=== PATIENT | female | born 2000 | race Two or more races ===

== ENCOUNTER 2021-08-27 11:12 | Outpatient (REF) | payer OTHER, SELFPAY ==
[2021-08-29 20:52] LABS: TS Negative Control Passed; TS Panel A 0; TS Panel B 0; TS Positive Control Passed; TSpotTB Negative (Negative)
== END 2021-08-27 11:13 | disposition home or self-care (01) ==
LOC: HO.LAB 11:12
PROVIDERS: Visit Provider Physician Assistant
DX: Z11.1 Encounter for screening for respiratory tuberculosis (principal)
CPT/HCPCS: 36415; 86481

== ENCOUNTER 2021-11-28 02:07 | Emergency (ER) | payer OTHER, MEDICAID, SELFPAY ==
[2021-11-28 02:19] VITALS: BP 136/85; PULSE 94; RESP 14; TEMP 37.2; O2SAT 99; BMI 21.9
[2021-11-28 04:25] VITALS: BP 104/63; PULSE 67; RESP 14; O2SAT 97
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
[2021-11-28] MEDS: Ibuprofen 600 MG TABLET PO (04:47)
== END 2021-11-28 04:50 | disposition home or self-care (01) ==
PROVIDERS: Emergency Provider Internal Medicine
DX: S00.93XA Contusion of unspecified part of head, initial encounter (principal); V43.52XA Car driver injured in collision with other type car in traffic accident, initial encounter; Y93.9 Activity, unspecified; Y92.9 Unspecified place or not applicable; Y99.9 Unspecified external cause status
CPT/HCPCS: 99283

== ENCOUNTER 2022-02-11 11:36 | Outpatient (REF) | payer OTHER, SELFPAY ==
--- NOTE | ~2022-02-11 | XR_ITS ---
EXAMINATION: XR CHEST CLINICAL INFORMATION: Shortness of breath COMPARISON: None TECHNIQUE: 2 views of the chest were obtained. FINDINGS: Mild pectus deformity. Cardiac and mediastinal contours are otherwise normal. The lungs are clear. There is no pleural effusion or pneumothorax. Bony structures are otherwise unremarkable. XR/XR chest 2V IMPRESSION: No evidence for acute disease in the chest.
[2022-02-11 11:51] LABS: MANUAL DIFF FLAG NO
[2022-02-11 12:13] LABS: Basophils Absolute Auto 0.1 X10*3/uL (0.0-0.2); Basophils Percent Auto 0.9 % (0-2); Eosinophils Absolute Auto 0.1 X10*3/uL (0.0-0.4); Eosinophils Percent Auto 1.5 % (0-4); Hematocrit 40.1 % (37.0-47.0); Hemoglobin 12.7 g/dl (12.0-16.0); Imm Gran Abs Auto 0.01 X10*3/uL (0.00-0.03); Imm Gran Pct Auto 0.2 % (0.0-0.4); Lymphocytes Absolute Auto 1.4 X10*3/uL (1.2-4.9); Mean Corpuscular HGB Conc 31.7 g/dl (31.0-35.0); Mean Corpuscular Hemoglobin 24.8 pg (27.0-33.0); Mean Corpuscular Volume 78.2 fL (80.0-98.0); Mean Platelet Volume 11.5 fL (9.4-12.3); Monocytes Absolute Auto 0.5 X10*3/uL (0.1-1.2); Monocytes Percent Auto 8.5 % (2-11); Neutrophils Absolute Auto 3.5 x10*3/uL (2.0-8.3); Neutrophils Percent Auto 63.9 % (45-73); Platelet Count 313 X10*3/uL (160-400); Red Blood Count 5.13 X10*6/uL (4.20-5.50); Red Cell Distribution Width 14.3 % (11.0-16.0); White Blood Count 5.4 X10*3/uL (4.8-10.8)
[2022-02-11 13:15] LABS: Alanine Aminotransferase 9 U/L (0-31); Albumin Level 4.5 g/dL (3.5-5.0); Alkaline Phosphatase 89 U/L (39-117); Anion Gap 11 (12-20); Aspartate Amino Transferase 15 U/L (5-31); Bilirubin Total 0.4 mg/dL (0.0-1.0); Blood Urea Nitrogen 8 mg/dL (9-16); Calcium 9.8 mg/dL (8.4-10.2); Carbon Dioxide 27 mmol/L (22-29); Chloride 103 mmol/L (96-108); Estimated Glomerular Filt Rate > 60; Glucose Random 98 mg/dL (60-115); Potassium 4.5 mmol/L (3.3-5.1); Sodium 136 mmol/L (135-145); TSH reflex Free T4 1.19 uIU/mL (0.32-4.0); Total Protein 7.4 g/dL (6.5-8.0)
== END 2022-02-11 11:37 | disposition home or self-care (01) ==
LOC: HO.LAB 11:36
PROVIDERS: PCP Physician Assistant; Visit Provider Nurse Practitioner Family
DX: Z13.29 Encounter for screening for other suspected endocrine disorder (principal); Z13.0 Encounter for screening for diseases of the blood and blood-forming organs and certain disorders involving the immune mechanism; R06.02 Shortness of breath
CPT/HCPCS: 36415; 71046; 80053; 84443; 85025

== ENCOUNTER 2022-02-25 11:20 | Emergency (ER) | payer OTHER, SELFPAY ==
--- NOTE | 2022-02-25 11:32 | ED_ITS ---
HPI - Abdominal Pain General Chief Complaint: Abdominal Pain <Mona Arthur NP - Last Filed: 02/25/22 11:35> Stated Complaint: Upper abd pain <Mona Arthur NP - Last Filed: 02/25/22 11:35> Time Seen by Provider: 02/25/22 13:29 <Mona Arthur NP - Last Filed: 02/25/22 11:35> Source: patient <MANASA Walden - Last Filed: 02/25/22 13:58> Mode of arrival: ambulatory <MANASA Walden - Last Filed: 02/25/22 13:58> Limitations: no limitations <MANASA Walden Last Filed: 02/25/22 13:58> History of Present Illness HPI narrative: Patient is a 21 year old assigned female at with no reported medical history presenting to the emergency department today with epigastric pain. Patient states that over the last week she has had epigatsric pain that is worse when lying down. Patient denies any dizziness, lightheadedness, nausea, vomiting, fever, chills, blurry vision, double vision, loss of vision, chest pain, difficulty breathing, shortness of breath, back pain, night sweats, pain with urination, increased urinary frequency, increased urinary urgency, blood in her urine or stool, syncope or a near syncopal episode, recent trauma or falls, bowel incontinence, bladder incontinence, bowel retention, bladder retention, or any other complaints at this time. <MANASA Walden - Last Filed: 02/25/22 13:58> MD elicited complaint: abdominal pain <MANASA Walden - Last Filed: 02/25/22 13:58> Pertinent past history: none <MANASA Walden Last Filed: 02/25/22 13:58> Onset (ago): week(s) (1) <MANASA Walden - Last Filed: 02/25/22 13:58> Pain Consistency: intermittent <MANASA Walden Last Filed: 02/25/22 13:58> Location: epigastric <MANASA Walden Last Filed: 02/25/22 13:58> Severity: mild <MANASA Walden - Last Filed: 02/25/22 13:58> Pain scale (0-10): 3 <MANASA Walden - Last Filed: 02/25/22 13:58> Quality: burning <MANASA Walden - Last Filed: 02/25/22 13:58> Radiation: none <MANASA Walden - Last Filed: 02/25/22 13:58> Migration to: no migration <MANASA Walden - Last Filed: 02/25/22 13:58> Exacerbating factors: other (lying down) <MANASA Walden - Last Filed: 02/25/22 13:58> Relieving factors: nothing <MANASA Walden - Last Filed: 02/25/22 13:58> Associated symptoms: denies other symptoms <MANASA Walden - Last Filed: 02/25/22 13:58> Related Data Home Medications: Previous Rx's Medication Instructions Recorded albuterol sulfate 90 mcg/actuation 2 puff inhalation Q4-6H PRN 02/11/22 aerosol inhaler shortness of breath or wheezing #6.7 grams omeprazole 40 mg capsule,delayed 40 mg PO DAILY #30 caps 02/25/22 release <Mona Arthur NP - Last Filed: 02/25/22 11:35> Allergies/Adverse Reactions: Allergies Allergy/AdvReac Type Severity Reaction Status Date / Time copper Allergy Unknown Rash Verified 02/25/22 11:32 adhesive tape Allergy Rash Verified 02/25/22 11:32 <Mona Arthur NP - Last Filed: 02/25/22 11:35> Review of Systems Constitutional: Reports no additional constitutional complaints, Denies chills, Denies fever(s) and Denies night sweats <MANASA Walden - Last Filed: 02/25/22 13:58> Eyes: Reports no additional eye complaints, Denies blurry vision, Denies change in vision, Denies diplopia, Denies eye discharge, Denies loss of vision and Denies eye pain <MANASA Walden - Last Filed: 02/25/22 13:58> Denies dizziness <MANASA Walden - Last Filed: 02/25/22 13:58> Cardiovascular: Reports no additional cardiovascular complaints, Denies chest pain, Denies lightheadedness, Denies Loss of Consciousness and Denies dyspnea <MANASA Walden - Last Filed: 02/25/22 13:58> Respiratory: Reports no additional respiratory complaints and Denies dyspnea <MANASA Walden - Last Filed: 02/25/22 13:58> Gastrointestinal: Reports no additional gastrointestinal complaints, Reports abdominal pain (epigastric pain), Denies melena, Denies hematochezia, Denies change in bowel habits and Denies change in stool character <MANASA Walden - Last Filed: 02/25/22 13:58> Genitourinary: Denies hematuria, Denies urinary frequency, Denies dysuria, Denies urinary incontinence, Denies urinary hesitancy and Denies urinary urgency <MANASA Walden - Last Filed: 02/25/22 13:58> Musculoskeletal: Reports no additional musculoskeletal complaints, Denies numbness and Denies tingling <MANASA Walden - Last Filed: 02/25/22 13:58> Denies dizziness, Denies loss of vision, Denies numbness and Denies tingling <MANASA Walden - Last Filed: 02/25/22 13:58> Psychiatric: Reports no additional psychiatric complaints <MANASA Walden - Last Filed: 02/25/22 13:58> Endocrine: Reports no additional endocrine complaints <MANASA Walden - Last Filed: 02/25/22 13:58> Hematologic/Lymphatic: Reports no additional hematologic/lymphatic complaints <MANASA Walden - Last Filed: 02/25/22 13:58> Allergic/Immunologic: Reports no additional allergic/immunologic complaints <MANASA Walden - Last Filed: 02/25/22 13:58> PMFSH Past Medical History Attestation statement: The following information was validated with the patient. <MANASA Walden - Last Filed: 02/25/22 13:58> Source: old records reviewed <MANASA Walden - Last Filed: 02/25/22 13:58> Medical History: Medical History Collapse of right lung SOB (shortness of breath) <Mona Arthur NP - Last Filed: 02/25/22 11:35> Surgical History: Surgical History History of appendectomy History of surgery <Mona Arthur NP - Last Filed: 02/25/22 11:35> Family History Family History: Family History Father No problems noted. Mother No problems noted. Brother No problems noted. <Mona Arthur NP - Last Filed: 02/25/22 11:35> Social History Social History: Social History Housing: Apartment Alcohol intake: current Alcohol intake frequency: holidays/special occasions only Patient Tobacco Use Status: Never used Tobacco e-Cigarette/Vaping Use: Never Used Second Hand Smoke Exposure: No Advance Directives: No Advance Directives Information Provided: No service: No Current occupational status: employed Current occupational exposures/hazards: No Cognitive needs: No Hearing needs: No Vision needs: No <Mona Arthur NP - Last Filed: 02/25/22 11:35> Physical Exam ED Vital Signs: Vital Signs - 24 hr 02/25/22 11:33 Temperature 98.2 F Pulse Rate 100 Respiratory Rate 18 Blood Pressure 108/65 Pulse Oximetry 99 Oxygen Delivery Method Room Air BMI result Body Mass Index 21.9 <Mona Arthur NP - Last Filed: 02/25/22 11:35> Vital Signs - 24 hr 02/25/22 11:33 Temperature 98.2 F Pulse Rate 100 Respiratory Rate 18 Blood Pressure 108/65 Pulse Oximetry 99 Oxygen Delivery Method Room Air BMI result Body Mass Index 21.9 <MANASA Walden - Last Filed: 02/25/22 13:58> Const General: cooperative, no acute distress, alert and awake <MANASA Walden - Last Filed: 02/25/22 13:58> Nutritional Appearance: well nourished <MANASA Walden - Last Filed: 02/25/22 13:58> Orientation/consciousness: patient oriented x3 <MANASA Walden - Last Filed: 02/25/22 13:58> Limitations: no limitations <Rand Jordan [place] - Last Filed: 02/25/22 13:58> HENMT Head: Yes normal to inspection and Yes atraumatic <Rand Jordan [place] - Last Filed: 02/25/22 13:58> Ears: hearing grossly normal bilaterally and external ears normal <Rand Jordan [place] - Last Filed: 02/25/22 13:58> General nose exam: Normal external nose present, no nasal discharge noted and no epistaxis <Rand Jordan [place] - Last Filed: 02/25/22 13:58> Face and sinus: Yes normal facial exam, No abrasion and No laceration <Rand Jordan [place] - Last Filed: 02/25/22 13:58> Mouth: Normal oral and palatal mucosa present, no drooling and no muffled voice <Rand Jordan [place] - Last Filed: 02/25/22 13:58> Eyes General: appearance normal, both eyes and all related structures <Rand Jordan [place] - Last Filed: 02/25/22 13:58> Periorbital: periorbital findings normal <Rand Jordan [place] - Last Filed: 02/25/22 13:58> Eyelids: Yes eyelids normal <Rand Jordan [place] - Last Filed: 02/25/22 13:58> Conjunctivae: conjunctivae normal <Rand Jordan [place] - Last Filed: 02/25/22 13:58> Pupils: Equal, round and reactive pupils present <Rand Jordan [place] - Last Filed: 02/25/22 13:58> EOM: EOMs intact bilaterally <Rand Jordan [place] - Last Filed: 02/25/22 13:58> Neck Neck: Yes normal visual inspection, Yes full ROM and Yes no lymphadenopathy <Rand Jordan [place] - Last Filed: 02/25/22 13:58> Chest Chest palpation & inspection: normal inspection of the chest <Rand Jordan IL - Last Filed: 03/07 13:58> Resp Effort & Inspection: normal respiratory effort and able to speak in complete sentences <Debra Hurleyannalee [place] - Last Filed: 02/25/22 13:58> Auscultation: clear to auscultation bilaterally <Rand Jordan PA - Last Filed: 02/25/22 13:58> Cardio Rate: regular rate <Rand Jordan PA - Last Filed: 02/25/22 13:58> Rhythm: regular rhythm <Rand Jordan PA - Last Filed: 02/25/22 13:58> GI Inspection: Yes normal to inspection <Rand Jordan PA - Last Filed: 02/25/22 13:58> Palpation (GI): Soft to palpation, not firm, nontender, no guarding and not rigid <Rand Jordan PA - Last Filed: 02/25/22 13:58> Neuro General: patient oriented x3 and moves all extremities <Rand Jordan PA - Last Filed: 02/25/22 13:58> Cranial nerves: Yes Equal, round and reactive pupils present <Rand Jordan PA - Last Filed: 02/25/22 13:58> Cognition (Neuro): normal cognition <Rand Jordan PA - Last Filed: 02/25/22 13:58> Motor exam (neuro): 5/5 motor strength present throughout <Rand Jordan PA - Last Filed: 02/25/22 13:58> Sensory Exam: Normal double simultaneous stimulation for sensation <Rand Jordan PA - Last Filed: 02/25/22 13:58> Coordination: [id number] test normal <Rand Jordan PA - Last Filed: 02/25/22 13:58> Extrem General: Yes normal to inspection, Yes full ROM and Yes capillary refill normal <Rand Jordan PA - Last Filed: 02/25/22 13:58> Psych Appearance: grossly normal <Rand Jordan PA - Last Filed: 02/25/22 13:58> Mental Status: mental status grossly normal <Rand Jordan PA - Last Filed: 02/25/22 13:58> Affect: normal affect <Rand Jordan PA - Last Filed: 02/25/22 13:58> Attitude: cooperative <Rand Jordan PA - Last Filed: 02/25/22 13:58> Thought process: Normal thought process present <Rand Jordan PA - Last Filed: 13:58> Thought content: Normal thought content present <MANASA Walden - Last Filed: 02/25/22 13:58> Insight: Good insight present (Psych) <MANASA Walden - Last Filed: 02/25/22 13:58> Course Course Course Narrative: This is a rapid medical exam. Deferred additional HPI, ROS to primary provider. 21 yo female with history of asthma, hypothyroidism here with upper/epigastric abdominal pain x 1 week worsened with laying flat. No nausea, vomiting, diarrhea, urinary symptoms, fevers, chills. Will check labs, UA. VSS. <Mona Arthur NP - Last Filed: 02/25/22 11:35> Medical Decision Making Medical Decision Making [facility] Narrative: Patient is a 21 year old assigned female at with no reported medical history presenting to the emergency department today with epigastric pain. Patient's physical exam was unremarkable. Patient's blood work was unremarkable. Patient's urine showed no acute process. I explained my physical exam findings as well as all test results to the patient. I answered all questions asked by the patient. Patient received PO Omeprazole and Maalox which she stated helped her symptoms significantly. I stressed the importance of the patient taking her medication as prescribed. I stressed the importance of the patient following up with her primary care provider. I stressed the importance of the patient returning to the emergency department immediately if her symptoms were to worsen or if she were to develop any dizziness, shortness of breath, difficulty breathing, chest pain, blurry vision, loss of vision, nausea, vomiting, abdominal pain, fever, chills, back pain, or any other complaints. Patient verbalized agreement and understanding with this treatment plan and discharge. <MANASA Walden - Last Filed: 02/25/22 13:58> Differential Diagnosis Differential Diagnoses: The differential diagnosis associated with the presentation includes <MANASA Walden - Last Filed: 02/25/22 13:58> GERD <MANASA Walden - Last Filed: 02/25/22 13:58> Lab Data [facility] Lab Attestation statement: I reviewed the patient's lab results. <MANASA Walden - Last Filed: 02/25/22 13:58> Result Diagrams: : 02/25/22 11:40 02/25/22 11:40 <Mona Arthur, [employer] OPERATOR - Last Filed: 02/25/22 11:35> Labs: Lab Results 02/25/22 02/25/22 02/25/22 Range/Units 11:40 11:40 13:32 WBC 6.4 (4.8-10.8) X10*3/uL RBC 4.98 (4.20-5.50) X10*6/uL Hgb 12.6 (12.0-16.0) g/dl Hct 38.9 (37.0-47.0) % MCV 78.1 L (80.0-98.0) fL MCH 25.3 L (27.0-33.0) pg MCHC 32.4 (31.0-35.0) g/dl RDW 14.3 (11.0-16.0) % Plt Count 282 (160-400) X10*3/uL MPV 11.6 (9.4-12.3) fL Immature Gran % (Auto) 0.3 (0.0-0.4) % Neut % (Auto) 66.5 (45-73) % Lymph % (Auto) 21.6 (20-40) % [place] % (Auto) 9.9 (2-11) % Eos % (Auto) 1.1 (0-4) % Baso % (Auto) 0.6 (0-2) % Lymph # (Auto) 1.4 (1.2-4.9) X10*3/uL [place] # (Auto) 0.6 (0.1-1.2) X10*3/uL Eos # (Auto) 0.1 (0.0-0.4) X10*3/uL Baso # (Auto) 0.0 (0.0-0.2) X10*3/uL Abs Immat Gran (auto) 0.02 (0.00-0.03) X10*3/uL Absolute Neuts (auto) 4.2 (2.0-8.3) x10*3/uL Absolute Nucleated RBC 0.000 (0.0-0.012) X10*3/uL Nucleated RBC % (auto) 0.0 (0.0-0.2) /100WBC Sodium 140 (135-145) mmol/L Potassium 4.3 (3.3-5.1) mmol/L Chloride 106 (96-108) mmol/L Carbon Dioxide 28 (22-29) mmol/L Anion Gap 10 L (12-20) BUN 11 (9-16) mg/dL Creatinine 0.74 (0.5-1.4) mg/dL Estim Creat Clear Calc 94.3 Estimated GFR > 60 Random Glucose 84 (60-115) mg/dL Calcium 9.7 (8.4-10.2) mg/dL Total Bilirubin 0.4 (0.0-1.0) mg/dL Direct Bilirubin < 0.2 (0.0-0.5) mg/dL AST 15 (5-31) U/L ALT 8 (0-31) U/L Alkaline Phosphatase 84 (39-117) U/L Total Protein 7.2 (6.5-8.0) g/dL Albumin 4.6 (3.5-5.0) g/dL Lipase 28 (8-78) U/L Urine Color Yellow Urine Appearance Clear Urine pH 6.0 (5.0-9.0) Ur Specific [place] 1.020 (1.005-1.025) Urine Protein Negative (Neg-Trace) mg/dL Urine Glucose (UA) Negative (Negative) mg/dL Urine Ketones Negative (Negative) mg/dL Urine Blood Negative (Negative) Urine Nitrite Negative (Negative) Ur Leukocyte Esterase Negative (Negative) Urine Test (NEGATIVE) 02/25/22 Range/Units 13:32 WBC (4.8-10.8) X10*3/uL RBC (4.20-5.50) X10*6/uL Hgb (12.0-16.0) g/dl Hct (37.0-47.0) % MCV (80.0-98.0) fL MCH (27.0-33.0) pg MCHC (31.0-35.0) g/dl RDW (11.0-16.0) % Plt Count (160-400) X10*3/uL MPV (9.4-12.3) fL Immature Gran % (Auto) (0.0-0.4) % Neut % (Auto) (45-73) % Lymph % (Auto) (20-40) % [place] % (Auto) (2-11) % Eos % (Auto) (0-4) % Baso % (Auto) (0-2) % Lymph # (Auto) (1.2-4.9) X10*3/uL [place] # (Auto) (0.1-1.2) X10*3/uL Eos # (Auto) (0.0-0.4) X10*3/uL Baso # (Auto) (0.0-0.2) X10*3/uL Abs Immat Gran (auto) (0.00-0.03) X10*3/uL Absolute Neuts (auto) (2.0-8.3) x10*3/uL Absolute Nucleated RBC (0.0-0.012) X10*3/uL Nucleated RBC % (auto) (0.0-0.2) /100WBC Sodium (135-145) mmol/L Potassium (3.3-5.1) mmol/L Chloride (96-108) mmol/L Carbon Dioxide (22-29) mmol/L Anion Gap (12-20) BUN (9-16) mg/dL Creatinine (0.5-1.4) mg/dL Estim Creat Clear Calc Estimated GFR Random Glucose (60-115) mg/dL Calcium (8.4-10.2) mg/dL Total Bilirubin (0.0-1.0) mg/dL Direct Bilirubin (0.0-0.5) mg/dL AST (5-31) U/L ALT (0-31) U/L Alkaline Phosphatase (39-117) U/L Total Protein (6.5-8.0) g/dL Albumin (3.5-5.0) g/dL Lipase (8-78) U/L Urine Color Urine Appearance Urine pH (5.0-9.0) Ur Specific [place] (1.005-1.025) Urine Protein (Neg-Trace) mg/dL Urine Glucose (UA) (Negative) mg/dL Urine Ketones (Negative) mg/dL Urine Blood (Negative) Urine Nitrite (Negative) Ur Leukocyte Esterase (Negative) Urine Test NEGATIVE (NEGATIVE) <Mona Arthur NP - Last Filed: 02/25/22 11:35> Lab Results 02/25/22 02/25/2202/25/22 Range/Units 11:40 11:40 13:32 WBC 6.4 (4.8-10.8) X10*3/uL RBC 4.98 (4.20-5.50) X10*6/uL Hgb 12.6 (12.0-16.0) g/dl Hct 38.9 (37.0-47.0) % MCV 78.1 L (80.0-98.0) fL MCH 25.3 L (27.0-33.0) pg MCHC 32.4 (31.0-35.0) g/dl RDW 14.3 (11.0-16.0) % Plt Count 282 (160-400) X10*3/uL MPV 11.6 (9.4-12.3) fL Immature Gran % (Auto) 0.3 (0.0-0.4) % Neut % (Auto) 66.5 (45-73) % Lymph % (Auto) 21.6 (20-40) % [place] % (Auto) 9.9 (2-11) % Eos % (Auto) 1.1 (0-4) % Baso % (Auto) 0.6 (0-2) % Lymph # (Auto) 1.4 (1.2-4.9) X10*3/uL [place] # (Auto) 0.6 (0.1-1.2) X10*3/uL Eos # (Auto) 0.1 (0.0-0.4) X10*3/uL Baso # (Auto) 0.0 (0.0-0.2) X10*3/uL Abs Immat Gran (auto) 0.02 (0.00-0.03) X10*3/uL Absolute Neuts (auto) 4.2 (2.0-8.3) x10*3/uL Absolute Nucleated RBC 0.000 (0.0-0.012) X10*3/uL Nucleated RBC % (auto) 0.0 (0.0-0.2) /100WBC Sodium 140 (135-145) mmol/L Potassium 4.3 (3.3-5.1) mmol/L Chloride 106 (96-108) mmol/L Carbon Dioxide 28 (22-29) mmol/L Anion Gap 10 L (12-20) BUN 11 (9-16) mg/dL Creatinine 0.74 (0.5-1.4) mg/dL Estim Creat Clear Calc 94.3 Estimated GFR > 60 Random Glucose 84 (60-115) mg/dL Calcium 9.7 (8.4-10.2) mg/dL Total Bilirubin 0.4 (0.0-1.0) mg/dL Direct Bilirubin < 0.2 (0.0-0.5) mg/dL AST 15 (5-31) U/L ALT 8 (0-31) U/L Alkaline Phosphatase 84 (39-117) U/L Total Protein 7.2 (6.5-8.0) g/dL Albumin 4.6 (3.5-5.0) g/dL Lipase 28 (8-78) U/L Urine Color Yellow Urine Appearance Clear Urine pH 6.0 (5.0-9.0) Ur Specific [place] 1.020 (1.005-1.025) Urine Protein Negative (Neg-Trace) mg/dL Urine Glucose (UA) Negative (Negative) mg/dL Urine Ketones Negative (Negative) mg/dL Urine Blood Negative (Negative) Urine Nitrite Negative (Negative) Ur Leukocyte Esterase Negative (Negative) Urine Test (NEGATIVE) 02/25/22 Range/Units 13:32 WBC (4.8-10.8) X10*3/uL RBC (4.20-5.50) X10*6/uL Hgb (12.0-16.0) g/dl Hct (37.0-47.0) % MCV (80.0-98.0) fL MCH (27.0-33.0) pg MCHC (31.0-35.0) g/dl RDW (11.0-16.0) % Plt Count (160-400) X10*3/uL MPV (9.4-12.3) fL Immature Gran % (Auto) (0.0-0.4) % Neut % (Auto) (45-73) % Lymph % (Auto) (20-40) % [place] % (Auto) (2-11) % Eos % (Auto) (0-4) % Baso % (Auto) (0-2) % Lymph # (Auto) (1.2-4.9) X10*3/uL [place] # (Auto) (0.1-1.2) X10*3/uL Eos # (Auto) (0.0-0.4) X10*3/uL Baso # (Auto) (0.0-0.2) X10*3/uL Abs Immat Gran (auto) (0.00-0.03) X10*3/uL Absolute Neuts (auto) (2.0-8.3) x10*3/uL Absolute Nucleated RBC (0.0-0.012) X10*3/uL Nucleated RBC % (auto) (0.0-0.2) /100WBC Sodium (135-145) mmol/L Potassium (3.3-5.1) mmol/L Chloride (96-108) mmol/L Carbon Dioxide (22-29) mmol/L Anion Gap (12-20) BUN (9-16) mg/dL Creatinine (0.5-1.4) mg/dL Estim Creat Clear Calc Estimated GFR Random Glucose (60-115) mg/dL Calcium (8.4-10.2) mg/dL Total Bilirubin (0.0-1.0) mg/dL Direct Bilirubin (0.0-0.5) mg/dL AST (5-31) U/L ALT (0-31) U/L Alkaline Phosphatase (39-117) U/L Total Protein (6.5-8.0) g/dL Albumin (3.5-5.0) g/dL Lipase (8-78) U/L Urine Color Urine Appearance Urine pH (5.0-9.0) Ur Specific [place] (1.005-1.025) Urine Protein (Neg-Trace) mg/dL Urine Glucose (UA) (Negative) mg/dL Urine Ketones (Negative) mg/dL Urine Blood (Negative) Urine Nitrite (Negative) Ur Leukocyte Esterase (Negative) Urine Test NEGATIVE (NEGATIVE) <MANASA Walden - Last Filed: 02/25/22 13:58> Discharge Plan Discharge Clinical Impression: Acute epigastric pain <Mona Arhtur NP - Last Filed: 02/25/22 11:35> Patient Disposition: Home, Self-Care <Mona Arthur NP - Last Filed: 02/25/22 11:35> Instructions: Epigastric Pain (ED) <Mnoa Arthur NP - Last Filed: 02/25/22 11:35> Additional Instructions: Follow up with your primary care provider. Return to the emergency dep artment immediately if your symptoms worsen or if you develop any dizziness, shortness of breath, difficulty breathing, chest pain, blurry vision, loss of vision, nausea, vomiting, abdominal pain, fever, chills, back pain, or any other complaints. <Mona Arthur NP - Last Filed: 02/25/22 11:35> Prescriptions: New omeprazole 40 mg capsule,delayed release(DR/EC) 40 mg PO DAILY Qty: 30 0RF No Action albuterol sulfate 90 mcg/actuation HFA aerosol inhaler 2 puff inhalation Q4-6H PRN (Reason: shortness of breath or wheezing) Qty: 6.7 0RF <Mona Arthur NP - Last Filed: 02/25/22 11:35> Referrals: Peterson Nair PA-C [Primary Care Provider] - <Mona Arthur NP - Last Filed: 02/25/22 11:35> Stand Alone Forms: Work/School Release <Mona Arthur NP - Last Filed: 02/25/22 11:35> Print Language: Hungarian <Mona Arthur NP - Last Filed: 02/25/22 11:35>
[2022-02-25 11:33] VITALS: BP 108/65; PULSE 100; RESP 18; TEMP 36.8; O2SAT 99; BMI 21.9
[2022-02-25 11:44] LABS: MANUAL DIFF FLAG NO
[2022-02-25 11:49] LABS: Basophils Percent Auto 0.6 % (0-2); Eosinophils Absolute Auto 0.1 X10*3/uL (0.0-0.4); Eosinophils Percent Auto 1.1 % (0-4); Hematocrit 38.9 % (37.0-47.0); Hemoglobin 12.6 g/dl (12.0-16.0); Imm Gran Abs Auto 0.02 X10*3/uL (0.00-0.03); Imm Gran Pct Auto 0.3 % (0.0-0.4); Lymphocytes Absolute Auto 1.4 X10*3/uL (1.2-4.9); Lymphocytes Percent Auto 21.6 % (20-40); Mean Corpuscular HGB Conc 32.4 g/dl (31.0-35.0); Mean Corpuscular Hemoglobin 25.3 pg (27.0-33.0); Mean Corpuscular Volume 78.1 fL (80.0-98.0); Mean Platelet Volume 11.6 fL (9.4-12.3); Monocytes Absolute Auto 0.6 X10*3/uL (0.1-1.2); Monocytes Percent Auto 9.9 % (2-11); Neutrophils Absolute Auto 4.2 x10*3/uL (2.0-8.3); Neutrophils Percent Auto 66.5 % (45-73); Platelet Count 282 X10*3/uL (160-400); Red Blood Count 4.98 X10*6/uL (4.20-5.50); Red Cell Distribution Width 14.3 % (11.0-16.0); White Blood Count 6.4 X10*3/uL (4.8-10.8)
[2022-02-25 12:11] LABS: Alanine Aminotransferase 8 U/L (0-31); Albumin Level 4.6 g/dL (3.5-5.0); Alkaline Phosphatase 84 U/L (39-117); Anion Gap 10 (12-20); Aspartate Amino Transferase 15 U/L (5-31); Bilirubin Direct < 0.2 mg/dL (0.0-0.5); Bilirubin Total 0.4 mg/dL (0.0-1.0); Blood Urea Nitrogen 11 mg/dL (9-16); Calcium 9.7 mg/dL (8.4-10.2); Carbon Dioxide 28 mmol/L (22-29); Chloride 106 mmol/L (96-108); Creatinine Clr Calc Pharmacy 94.3; Estimated Glomerular Filt Rate > 60; Glucose Random 84 mg/dL (60-115); Lipase 28 U/L (8-78); Potassium 4.3 mmol/L (3.3-5.1); Sodium 140 mmol/L (135-145); Total Protein 7.2 g/dL (6.5-8.0)
[2022-02-25 13:44] LABS: Appearance Urine Clear; Color Urine Yellow; Glucose Urine UA Negative (Negative); Leukocyte Esterase Urine Negative (Negative); Nitrite Urine Negative (Negative); Urine Blood Negative (Negative); Urine Ketones Negative (Negative); Urine Protein Negative (Neg-Trace)
[2022-02-25 13:45] LABS: UPreg QC Valid YES; Urine Pregnancy NEGATIVE (NEGATIVE)
[2022-02-25] MEDS: Magnesium Hydrox/Alum Hydrox 30 ML ORAL.SUSP 15 ML PO (14:10)
[2022-02-25] MEDS: Omeprazole 40 MG CAPSULE.DR PO (14:10)
== END 2022-02-25 14:17 | disposition home or self-care (01) ==
PROVIDERS: Nurse Practitioner Family; Emergency Provider Emergency Medicine; PCP Physician Assistant
DX: R10.13 Epigastric pain (principal)
CPT/HCPCS: 36415; 80048; 80076; 81003; 81025; 83690; 85025; 99283

== ENCOUNTER 2022-11-10 18:42 | Emergency (ER) | payer OTHER, SELFPAY ==
--- NOTE | ~2022-11-10 | XR_ITS ---
EXAMINATION: XR chest 2V CLINICAL INFORMATION: Reason for Exam CP, SOB COMPARISON: Prior chest x-ray 02/11/2022 TECHNIQUE: XR chest 2V Lungs and Belkys: Both lungs are clear. Pleura: Normal. Costophrenic angles are sharp. No pneumothorax. Heart: The heart is normal in size. Mediastinum: The mediastinum is within normal limits.. Bones: Skeletal structures included are normal for patient's age. XR/XR chest 2V IMPRESSION: No radiographic evidence of acute cardiopulmonary disease.
--- NOTE | 2022-11-10 18:44 | ECG_ITS ---
Test Reason : CHEST TIGHTNESS Blood Pressure : / mmHG Vent. Rate : 090 BPM Atrial Rate : 090 BPM P-R Int : 122 ms QRS Dur : 072 ms QT Int : 340 ms P-R-T Axes : 060 019 038 degrees QTc Int : 415 ms Normal sinus rhythm with sinus arrhythmia Normal ECG No previous ECGs available Referred By: Zayda Cerrato Electronically Signed By:JES BALDERAS
[2022-11-10 18:56] VITALS: BP 137/97; PULSE 102; RESP 18; TEMP 36.7; O2SAT 97; BMI 21.9
--- NOTE | 2022-11-10 18:56 | ED_ITS ---
HPI - Chest Pain General Chief Complaint: Chest Pain Stated Complaint: tightness in chest Time Seen by Provider: 11/10/22 22:16 Source: patient and family (Mother) Mode of arrival: ambulatory Limitations: no limitations History of Present Illness HPI narrative: 22-year-old female came in for evaluation of mid chest tightness for the past 2- 3 days, patient feel it constantly, feels shortness of breath and wheezing occasionally, patient's symptoms started after clean the bathroom was bleach and incidentally smelled a large amount of it, patient is not known to have allergy or asthma. No recent travel or prolonged immobilization no lower extremity swelling or tenderness. No family history of heart disease at young age, patient is nonsmoker. Related Data Previous Rx's Medication Instructions Recorded omeprazole 40 mg capsule,delayed 40 mg PO DAILY #30 caps 02/25/22 release albuterol sulfate 90 mcg/actuation 2 puff inhalation Q4-6H PRN for 03/12/22 aerosol inhaler (Ventolin HFA) wheezing #18 ea Allergies Allergy/AdvReac Type Severity Reaction Status Date / Time copper Allergy Unknown Rash Verified 11/10/22 18:59 adhesive tape Allergy Rash Verified 11/10/22 18:59 Review of Systems Review of Systems: All other systems are reviewed and are negative Constitutional: Reports as per HPI and Reports no additional constitutional complaints Eyes: Reports as per HPI and Reports no additional eye complaints Reports system reviewed and no additional complaints, except as documented Cardiovascular: Reports as per HPI and Reports no additional cardiovascular complaints Respiratory: Reports as per HPI and Reports no additional respiratory complaints Gastrointestinal: Reports as per HPI and Reports no additional gastrointestinal complaints Genitourinary: Reports no additional female genitourinary complaints Musculoskeletal: Reports no additional musculoskeletal complaints Skin/Breast: Reports system reviewed and no additional complaints, except as docu Psychiatric: Reports no additional psychiatric complaints Endocrine: Reports no additional endocrine complaints Hematologic/Lymphatic: Reports no additional hematologic/lymphatic complaints Allergic/Immunologic: Reports no additional allergic/immunologic complaints Reports system reviewed and no additional complaints, except as documented and Reports Abnormal speech present [facility] Past Medical History Medical History Collapse of right lung SOB (shortness of breath) Surgical History History of appendectomy History of surgery Family History Family History Father No problems noted. Mother No problems noted. Brother No problems noted. Social History Social History Housing: Apartment Alcohol intake: current Alcohol intake frequency: holidays/special occasions only Patient Tobacco Use Status: Never used Tobacco e-Cigarette/Vaping Use: Never Used Second Hand Smoke Exposure: No Advance Directives: No Advance Directives Information Provided: No service: No Current occupational status: employed Current occupational exposures/hazards: No Cognitive needs: No Hearing needs: No Vision needs: No Physical Exam Vital Signs: Vital Signs: Last Vital Signs Temp 98.0 F 11/10/22 18:56 Pulse 102 H 11/10/22 18:56 Resp 18 11/10/22 18:56 BP 137/97 H 11/10/22 18:56 Pulse Ox 97 11/10/22 18:56 O2 Del Method Room Air 11/10/22 18:56 BMI result Body Mass Index 21.9 Vital signs have been reviewed as appeared to be correct. Blood pressure normal. Heart rate normal. Respiration rate normal. Temperature normal. Oxygen saturation normal. Appearance: Alert. Oriented X3. No acute distress. Head: Normal external exam. Normocephalic. Atraumatic. No Scott signs noted. No raccoon eyes noted Eyes: PERRLA. EOMI. Conjunctiva and sclera normal. Eyelids normal. ENT: TM's Normal. Pharynx normal. Uvula midline. Moist mucous membranes. No trismus noted. No drooling noted. No muffled voice noted. Neck: Normal inspection. Neck supple. FROM. No adenopathy. Thyroid Normal. No meningeal signs. No neck mass noted. CVS: Normal heart rate and rhythm. Heart sound normal. No murmurs noted. Pulses normal throughout. Respiratory: No respiratory distress. Painless inspiration. Breath sounds normal. No wheezes/rales/rhonchi noted. Chest nontender. No accessory muscle usage noted or decreased air movement noted. Abdomen: Soft and nontender. Bowel sounds normal in all 4 quadrants. No distention noted. No organomegaly noted. No visible injury noted. Back: No CVA tenderness. Full range of motion noted. Skin: Skin warm and dry. Normal skin color. Normal skin turgor. No rashes/lesions/lacerations noted. Extremities: No lower extremity edema. Extremities exhibit normal range of motion. Extremities nontender. Neuro: Oriented X 3. Cranial nerve exam: II-XII are grossly intact No motor deficit. No sensory deficit. Reflexes normal. Course Course Course Narrative: Patient is a 22-year-old female presents to the emergency department evaluation of midsternal chest tightness. Reports onset of symptoms was 3 days ago. She also endorses shortness of breath but mainly on exertion. She denies URI symp toms. Denies exacerbation of pain with movement or deep inspiration. Denies personal history of DVT/PE, malignancy, recent lower extremity redness swelling or pain. She is not on any OCP. Plan: Labs, urinalysis, hCG, EKG Reevaluation(s) Reevaluation #1: Chest pain after smelling bleach while cleaning the bathroom 2 days ago, patient just finished a course of Decadron prescribed by her orthopedic for neck pain. No risk for PE with negative D-dimer, chest x-ray is unremarkable, patient with HEART score of 0. Medical Decision Making Differential Diagnosis Differential Diagnoses: The differential diagnosis associated with the presentation includes (Asthma, bronchospasm secondary to exposure to bleach, ACS, pneumonia, pneumothorax, pulmonary embolism, electrolyte abnormality, severe anemia, UTI, .) Admission/Observation Consideration of admission/observation: Escalation of care including admission/observation considered Lab Data MDM Lab Attestation statement: I reviewed the patient's lab results. 11/10/22 20:28 11/10/22 20:28 Labs: Lab Results 11/10/22 11/10/22 11/10/22 Range/Units 20:28 20:28 20:28 WBC 11.2 H (4.8-10.8) X10*3/uL RBC 5.12 (4.20-5.50) X10*6/uL Hgb 12.4 (12.0-16.0) g/dl Hct 38.8 (37.0-47.0) % MCV 75.8 L (80.0-98.0) fL MCH 24.2 L (27.0-33.0) pg MCHC 32.0 (31.0-35.0) g/dl RDW 15.7 (11.0-16.0) % Plt Count 346 (160-400) X10*3/uL MPV 10.6 (9.4-12.3) fL Immature Gran % (Auto) 0.4 (0.0-0.4) % Neut % (Auto) 77.3 H (45-73) % Lymph % (Auto) 12.9 L (20-40) % Webster % (Auto) 7.7 (2-11) % Eos % (Auto) 1.3 (0-4) % Baso % (Auto) 0.4 (0-2) % Lymph # (Auto) 1.4 (1.2-4.9) X10*3/uL Webster # (Auto) 0.9 (0.1-1.2) X10*3/uL Eos # (Auto) 0.1 (0.0-0.4) X10*3/uL Baso # (Auto) 0.0 (0.0-0.2) X10*3/uL Abs Immat Gran (auto) 0.05 H (0.00-0.03) X10*3/uL Absolute Neuts (auto) 8.7 H (2.0-8.3) x10*3/uL Absolute Nucleated RBC 0.000 (0.0-0.012) X10*3/uL Nucleated RBC % (auto) 0.0 (0.0-0.2) /100WBC PT 11.9 (11.1-13.3) SEC INR 1.0 (0.9-1.1) Sodium 140 (135-145) mmol/L Potassium 4.8 (3.3-5.1) mmol/L Chloride 106 (96-108) mmol/L Carbon Dioxide 28 (22-29) mmol/L Anion Gap 11 L (12-20) BUN 13 (9-16) mg/dL Creatinine 0.74 (0.5-1.4) mg/dL Estim Creat Clear Calc 93.5 Estimated GFR > 60 Random Glucose 103 (60-115) mg/dL Calcium 9.7 (8.4-10.2) mg/dL Total Bilirubin 0.2 (0.0-1.0) mg/dL AST 16 (5-31) U/L ALT 13 (0-31) U/L Alkaline Phosphatase 68 (39-117) U/L Troponin I High Sens (<3.5-17.0) ng/L Total Protein 7.4 (6.5-8.0) g/dL Albumin 4.4 (3.5-5.0) g/dL COVID-19 (LEELA) (Negative) COVID-19 Clin Com 11/10/22 11/10/22 Range/Units 20:28 20:28 WBC (4.8-10.8) X10*3/uL RBC (4.20-5.50) X10*6/uL Hgb (12.0-16.0) g/dl Hct (37.0-47.0) % MCV (80.0-98.0) fL MCH (27.0-33.0) pg MCHC (31.0-35.0) g/dl RDW (11.0-16.0) % Plt Count (160-400) X10*3/uL MPV (9.4-12.3) fL Immature Gran % (Auto) (0.0-0.4) % Neut % (Auto) (45-73) % Lymph % (Auto) (20-40) % Webster % (Auto) (2-11) % Eos % (Auto) (0-4) % Baso % (Auto) (0-2) % Lymph # (Auto) (1.2-4.9) X10*3/uL Webster # (Auto) (0.1-1.2) X10*3/uL Eos # (Auto) (0.0-0.4) X10*3/uL Baso # (Auto) (0.0-0.2) X10*3/uL Abs Immat Gran (auto) (0.00-0.03) X10*3/uL Absolute Neuts (auto) (2.0-8.3) x10*3/uL Absolute Nucleated RBC (0.0-0.012) X10*3/uL Nucleated RBC % (auto) (0.0-0.2) /100WBC PT (11.1-13.3) SEC INR (0.9-1.1) Sodium (135-145) mmol/L Potassium (3.3-5.1) mmol/L Chloride (96-108) mmol/L Carbon Dioxide (22-29) mmol/L Anion Gap (12-20) BUN (9-16) mg/dL Creatinine (0.5-1.4) mg/dL Estim Creat Clear Calc Estimated GFR Random Glucose (60-115) mg/dL Calcium (8.4-10.2) mg/dL Total Bilirubin (0.0-1.0) mg/dL AST (5-31) U/L ALT (0-31) U/L Alkaline Phosphatase (39-117) U/L Troponin I High Sens < 2.7 (<3.5-17.0) ng/L Total Protein (6.5-8.0) g/dL Albumin (3.5-5.0) g/dL COVID-19 (LEELA) Negative (Negative) COVID-19 Clin Com See Note Independent Interpretation I performed an independent interpretation of an: EKG (Normal sinus rhythm at 90 beats per minute, normal intervals, no ST-T changes, no old EKG to compare.) and Plain X-Ray (Chest: No acute intrathoracic pathology) Scores Heart Score History: -0- slightly suspicious ECG: -0- normal Age: -0- < or = 45 Risk factory: -0- no risk factors known Troponin: -0- < or = normal limit Score: 0 Risk: 1.7% Wells DVT Alternative Dx as likely as or more likely than DVT: -2 Score: -2 2-tier Risk: unlikely risk (5%) 3-tier Risk: low risk (3%) Discharge Plan Discharge Clinical Impression: Bronchospasm, Chest pain Patient Disposition: Home, Self-Care Instructions: Bronchospasm (ED) Prescriptions: No Action albuterol sulfate [Ventolin HFA] 90 mcg/actuation HFA aerosol inhaler 2 puff inhalation Q4-6H PRN (Reason: for wheezing) Qty: 18 0RF omeprazole 40 mg capsule,delayed release(DR/EC) 40 mg PO DAILY Qty: 30 0RF Referrals: Peterson Nair PA-C [Primary Care Provider] -
[2022-11-10 20:33] LABS: MANUAL DIFF FLAG NO
[2022-11-10 20:46] LABS: Basophils Percent Auto 0.4 % (0-2); Eosinophils Absolute Auto 0.1 X10*3/uL (0.0-0.4); Eosinophils Percent Auto 1.3 % (0-4); Hematocrit 38.8 % (37.0-47.0); Hemoglobin 12.4 g/dl (12.0-16.0); Imm Gran Abs Auto 0.05 X10*3/uL (0.00-0.03); Imm Gran Pct Auto 0.4 % (0.0-0.4); Lymphocytes Absolute Auto 1.4 X10*3/uL (1.2-4.9); Lymphocytes Percent Auto 12.9 % (20-40); Mean Corpuscular Hemoglobin 24.2 pg (27.0-33.0); Mean Corpuscular Volume 75.8 fL (80.0-98.0); Mean Platelet Volume 10.6 fL (9.4-12.3); Monocytes Absolute Auto 0.9 X10*3/uL (0.1-1.2); Monocytes Percent Auto 7.7 % (2-11); Neutrophils Absolute Auto 8.7 x10*3/uL (2.0-8.3); Neutrophils Percent Auto 77.3 % (45-73); Platelet Count 346 X10*3/uL (160-400); Red Blood Count 5.12 X10*6/uL (4.20-5.50); Red Cell Distribution Width 15.7 % (11.0-16.0); White Blood Count 11.2 X10*3/uL (4.8-10.8)
[2022-11-10 20:47] LABS: COVID-19 Test Negative (Negative); IDNOW Serial# BCCEAD1C
[2022-11-10 20:54] LABS: Alanine Aminotransferase 13 U/L (0-31); Albumin Level 4.4 g/dL (3.5-5.0); Alkaline Phosphatase 68 U/L (39-117); Anion Gap 11 (12-20); Aspartate Amino Transferase 16 U/L (5-31); Bilirubin Total 0.2 mg/dL (0.0-1.0); Blood Urea Nitrogen 13 mg/dL (9-16); Calcium 9.7 mg/dL (8.4-10.2); Carbon Dioxide 28 mmol/L (22-29); Chloride 106 mmol/L (96-108); Creatinine Clr Calc Pharmacy 93.5; Estimated Glomerular Filt Rate > 60; Glucose Random 103 mg/dL (60-115); Potassium 4.8 mmol/L (3.3-5.1); Sodium 140 mmol/L (135-145); Total Protein 7.4 g/dL (6.5-8.0)
[2022-11-10 20:59] LABS: Prothrombin Time 11.9 SEC (11.1-13.3)
[2022-11-10 21:03] LABS: Troponin-I High Sensitivity < 2.7 ng/L (<3.5-17.0)
[2022-11-10 23:04] LABS: Appearance Urine Cloudy; Color Urine Yellow; Glucose Urine UA Negative (Negative); Leukocyte Esterase Urine Small (1+) (Negative); Nitrite Urine Negative (Negative); PH 6.5 (5.0-9.0); Specific Gravity - Urine 1.015 (1.005-1.025); UMIC TRIGGER UACC YES; Urine Blood Negative (Negative); Urine Ketones Negative (Negative); Urine Protein Negative (Neg-Trace)
[2022-11-10 23:07] LABS: UPreg QC Valid YES; Urine Pregnancy NEGATIVE (NEGATIVE)
[2022-11-10] MEDS: Albuterol Sulfate 90 MCG 8 GM INHALER 2 PUFF INHALE (23:12)
[2022-11-10 23:13] VITALS: PULSE 78; RESP 18; O2SAT 99
[2022-11-10 23:17] LABS: Bacteria Urine 1+ (None Seen); Hyaline Casts Urine 0-2 /LPF (0-2); RBC Urine >20 /HPF (0-2); UACC Culture Trigger YES
--- NOTE | 2022-11-10 23:17 | PC.NURSE ---
resp therapy in to teach inh treatment
[2022-11-10 23:31] VITALS: BP 117/59; PULSE 79; RESP 16; O2SAT 95
[2022-11-10 23:40] LABS: D Dimer High Sensitivity < 150 NG/ML
== END 2022-11-10 23:49 | disposition home or self-care (01) ==
PROVIDERS: Nurse Practitioner Family; Emergency Provider Emergency Medicine; PCP Physician Assistant
DX: J98.01 Acute bronchospasm (principal); R07.9 Chest pain, unspecified; R06.02 Shortness of breath; Z20.822 Contact with and (suspected) exposure to COVID-19
CPT/HCPCS: 71046; 80053; 81001; 81003; 81025; 84484; 85025; 85379; 85610; 87086; 87635; 93005; 94640; 99285

== ENCOUNTER 2022-12-18 14:00 | Outpatient (REF) | payer OTHER, SELFPAY ==
[2022-12-20 02:17] LABS: Rubella IgG Antibody 2.97 Index
[2022-12-20 23:23] LABS: Hepatitis BE Antibody NON-REACTIVE (NON-REACTIVE)
[2022-12-21 17:23] LABS: TS Negative Control Passed; TS Panel A 0; TS Panel B 0; TS Positive Control Passed; TSpotTB Negative (Negative)
== END 2022-12-18 14:01 | disposition home or self-care (01) ==
LOC: HO.LAB 14:00
PROVIDERS: PCP Physician Assistant; Visit Provider Nurse Practitioner Family
DX: Z01.84 Encounter for antibody response examination (principal); Z11.1 Encounter for screening for respiratory tuberculosis
CPT/HCPCS: 36415; 86481; 86707; 86735; 86762; 86765

== ENCOUNTER 2022-12-31 12:51 | Outpatient (REF) | payer OTHER, SELFPAY ==
[2023-01-01 08:14] LABS: HBS Num1 98.24 mIU/mL (0-7.99); HBc Num1 0.05 S/CO (0.00-0.79); HBsAGNum1 0.27 S/CO (0.00-0.99); Hepatitis B Core Antibody Nonreactive (Nonreactive); Hepatitis B Surface Antigen Negative (Negative); ~HepC Num1 0.09 S/CO (0.00-0.79); ~Hepatitis B Surface Antibody REACTIVE (Nonreactive); ~Hepatitis C Antibody Nonreactive (Nonreactive)
== END 2022-12-31 12:52 | disposition home or self-care (01) ==
LOC: HO.LAB 12:51
PROVIDERS: PCP Physician Assistant; Visit Provider Physician Assistant
DX: Z11.3 Encounter for screening for infections with a predominantly sexual mode of transmission (principal)
CPT/HCPCS: 36415; 86704; 86706; 86803; 87340

== ENCOUNTER 2023-08-02 22:40 | Emergency (ER) | payer OTHER, SELFPAY ==
--- NOTE | 2023-08-02 22:42 | ECG_ITS ---
Test Reason : chest pain Blood Pressure : / mmHG Vent. Rate : 115 BPM Atrial Rate : 115 BPM P-R Int : 126 ms QRS Dur : 072 ms QT Int : 320 ms P-R-T Axes : 058 005 036 degrees QTc Int : 442 ms Sinus tachycardia Otherwise normal ECG When compared with ECG of 10-NOV-2022 18:52, No significant change was found Referred By: Generic ED Physician Electronically Signed By:VIDA GRANADOS MD
[2023-08-02 22:53] VITALS: BP 129/81; PULSE 116; RESP 16; TEMP 36.8; O2SAT 98; BMI 21.9
[2023-08-02 22:57] LABS: MANUAL DIFF FLAG NO
[2023-08-02 22:58] LABS: Basophils Absolute Auto 0.1 X10*3/uL (0.0-0.2); Basophils Percent Auto 0.7 % (0-2); Eosinophils Absolute Auto 0.2 X10*3/uL (0.0-0.4); Hematocrit 37.7 % (37.0-47.0); Hemoglobin 12.4 g/dl (12.0-16.0); Imm Gran Abs Auto 0.03 X10*3/uL (0.00-0.03); Imm Gran Pct Auto 0.3 % (0.0-0.4); Lymphocytes Absolute Auto 2.2 X10*3/uL (1.2-4.9); Lymphocytes Percent Auto 24.8 % (20-40); Mean Corpuscular HGB Conc 32.9 g/dl (31.0-35.0); Mean Corpuscular Hemoglobin 24.5 pg (27.0-33.0); Mean Corpuscular Volume 74.4 fL (80.0-98.0); Mean Platelet Volume 10.5 fL (9.4-12.3); Monocytes Absolute Auto 0.8 X10*3/uL (0.1-1.2); Monocytes Percent Auto 8.6 % (2-11); Neutrophils Absolute Auto 5.6 x10*3/uL (2.0-8.3); Neutrophils Percent Auto 63.6 % (45-73); Platelet Count 357 X10*3/uL (160-400); Red Blood Count 5.07 X10*6/uL (4.20-5.50); Red Cell Distribution Width 15.9 % (11.0-16.0); White Blood Count 8.8 X10*3/uL (4.8-10.8)
[2023-08-02 23:13] LABS: Alanine Aminotransferase 9 U/L (0-31); Albumin Level 4.4 g/dL (3.5-5.0); Alkaline Phosphatase 88 U/L (39-117); Anion Gap 14 (12-20); Aspartate Amino Transferase 17 U/L (5-31); Bilirubin Total 0.1 mg/dL (0.0-1.0); Blood Urea Nitrogen 7 mg/dL (9-16); Calcium 8.6 mg/dL (8.4-10.2); Carbon Dioxide 27 mmol/L (22-29); Chloride 102 mmol/L (96-108); Creatinine Clr Calc Pharmacy 98.9; Estimated Glomerular Filt Rate > 60; Glucose Random 108 mg/dL (60-115); Potassium 3.4 mmol/L (3.3-5.1); Sodium 140 mmol/L (135-145); Total Protein 7.5 g/dL (6.5-8.0)
[2023-08-02 23:27] LABS: Troponin-I High Sensitivity < 2.7 ng/L (<3.5-17.0)
== END 2023-08-03 04:19 | disposition left against medical advice (07) ==
LOC: HO.ED 08-03 04:17
PROVIDERS: Emergency Provider Emergency Medicine; PCP Physician Assistant
DX: R07.9 Chest pain, unspecified (principal); J45.909 Unspecified asthma, uncomplicated; R06.02 Shortness of breath
CPT/HCPCS: 36415; 80053; 84484; 85025; 93005; 99283

== ENCOUNTER → 2023-08-02 22:42 | Outpatient (BNV) | payer OTHER, SELFPAY | PROVIDERS: Emergency Provider Emergency Medicine; PCP Physician Assistant; Visit Provider Internal Medicine Cardiovascular Disease | DX: R07.9 Chest pain, unspecified (principal) | CPT/HCPCS: 93010 ==

== ENCOUNTER 2023-08-12 14:59 | Outpatient (AMB) | payer OTHER, SELFPAY ==
[2023-08-12 15:09] VITALS: BP 122/68; PULSE 85; O2SAT 98; BMI 21.9
--- NOTE | 2023-08-12 15:09 | MHC.PC.OV ---
Vital Signs 08/12/23 15:09 Height 5 ft 2 in Weight 120 lb BMI 21.9 BP 122/68 Blood Pressure Location Lt brachial Position Sitting Pulse 85 Pulse Source Pulse Oximeter Pulse Oximetry (%) 98 Oxygen Delivery Method Room Air Intake Visit Reasons: OVERDUE ANNUAL PE- NEEDS PHQ9 + THRIVE Intake Note: Patient is here today for a physical. 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 Required: No Accompanied by: Self / Same As Patient Allergies copper Allergy (Unknown, Verified 08/12/23 15:39) Rash adhesive tape Allergy (Verified 08/12/23 15:39) Rash Medication List - Last Reconciled 08/12/23 by Peterson Nair PA-C No Known Home Meds Tobacco use date assessed: 08/12/23 Dental Screening Dental Screen Date: 08/12/23 Did you have a dental visit in the last 12 months?: Yes Did you have a dental problem in the last 6 months where you did not have access to dental care?: No Was dental information given to patient?: Patient has dentist HPI OVERDUE ANNUAL PE- NEEDS PHQ9 + THRIVE HPI Details Patient is a 22-year-old female here today for routine annual physical. Generally patient is very healthy. She does have a history of pectus excavatum and was seeing a thoracic surgeon in the past. She did receive surgery back in 2016. She does report recently having some pain in her chest and was seen at the ER and underwent some testing. EKG was normal and troponins normal. She is interested in reestablishing care with her thoracic surgeon .. Asthma: Has been fairly well controlled, she reports she does not need to use an albuterol inhaler at all. .. Vaccine: REport she is UTD with Tdap, COVID. She is considering the pneumonia vaccine [employer] : Will give phone number to our [place] [facility]. [facility] Medical History SOB (shortness of breath) Collapse of right lung Surgical History History of surgery History of appendectomy Family History (Updated 08/12/23 @ 15:42 by Peterson Nair PA-C) Father No problems noted. Mother No problems noted. Brother No problems noted. Social History (Updated 08/12/23 @ 15:43 by Peterson Nair PA-C) Housing: Apartment Alcohol intake: current Alcohol intake frequency: holidays/special occasions only Patient Tobacco Use Status: Never used Tobacco e-Cigarette/Vaping Use: Never Used Second Hand Smoke Exposure: No service: No Current occupational status: employed and student Current occupation: [employer] Current occupational exposures/hazards: No Cognitive needs: No Hearing needs: No Vision needs: No Questionnaire PHQ-9 Over the last 2 weeks, how often have you been bothered by any of the following problems? 1. Little interest or pleasure in doing things: not at all 2. Feeling down, depressed, or hopeless: not at all 3. Trouble falling or staying asleep, or sleeping too much: not at all 4. Feeling tired or having little energy: not at all 5. Poor appetite or overeating: not at all 6. Feeling bad about yourself - or that you are a failure or have let yourself or your family down: not at all 7. Trouble concentrating on things, such as reading the newspaper or watching television: not at all 8. Moving or speaking so slowly that other people could have noticed. Or the opposite - being so fidgety or restless that you have been moving around a lot more than usual: not at all 9. Thoughts that you would be better off or of hurting yourself in some way: not at all Total score: 0 Depression Screening Interpretation: Negative Depression Screening Done: Yes 19845 - PHQ-9 Billing: Yes Source: Developed by Drs. Neal Chang, Sindhu Ivory, Ascencion Ayers and colleagues, with an educational nathan from [employer]. Thrive Questionnaire Date Thrive assessed: 08/12/23 I am a: Patient What is your living situation today?: I have a steady place to live Within the past 12 months, did the food you bought not last and you didn't have the money to get more?: Never true Within the past 12 months, did you worry whether your food would run out before you got money to buy more?: Never true Do you have trouble paying for medicines?: No Do you have trouble getting transportation to medical appointments?: No Do you have trouble paying your heating and electricity bill?: No Do you have trouble taking care of your child, family member or friend?: No Do you have trouble with day-to-day activities such as bathing, preparing meals, shopping, managing finances, etc.?: No Are you currently unemployed and looking for a job?: No Are you interested in more education?: No Currently or been in a relationship where the following occur: no concerns reported THRIVE Score: 0 AUDIT C Alcohol Use Questionnaire (AUDIT-C) 1. How often do you have a drink containing alcohol?: Monthly or less 2. How many drinks containing alcohol do you have on a typical day when you are drinking?: 1 or 2 3. How often do you have six or more drinks on one occasion?: Never Total Score: 1 CYNDI-7 AMB Questionnaire CYNDI-7 Date CYNDI - 7 assessed: 08/12/23 Feeling nervous, anxious, or on edge: 0 = Not at all Not being able to stop or control worryin = Not at all Worrying too much about different things: 0 = Not at all Trouble relaxin = Not at all Being so restless that it is hard to sit still: 0 = Not at all Becoming easily annoyed or irritable: 0 = Not at all Feeling afraid as if something awful might happen: 0 = Not at all Total CYNDI-7 score (0-4 normal; 5-9 mild; 10-14 moderate; 15-21 severe): 0 Source: Developed by Drs. Neal Chang, Sindhu Ivory, Ascencion Ayers and colleagues, with an educational nathan from [employer]. CYNDI-7 Assessment Billing CYNDI-7 Assessment Tool: CYNDI-7 Assessment 84863 ACT Questionnaire In the past 4 weeks, how much of the time did your asthma keep you from getting as much done at work, school or at home?: None of the time During the past 4 weeks, how often have you had shortness of breath?: Not at all During the past 4 weeks, how often did your asthma symptoms wake you up at night or earlier than usual in the morning?: Not at all During the past 4 weeks, how often have you had to use your rescue inhaler or nebulizer medication?: Not at all How would you rate your asthma control during the past 4 weeks?: Completely controlled ACT Interpretation: Negative Score: 25 Review of Systems Const Denies body aches, Denies chills, Denies excessive sweating, Denies fatigue, Denies fever(s) and Denies headache(s) Eyes Denies blurry vision ENT Denies dysphagia, Denies vertigo, Denies dizziness, Denies headache(s), Denies hearing loss and Denies tinnitus Card Denies chest pain, Denies chest pain with activity, Denies syncope, Denies irregular heart rhythm and Denies dyspnea Resp Denies chest congestion, Denies cough, Denies hemoptysis, Denies dyspnea and Denies wheezing GI Denies abdominal pain, Denies melena, Denies hematochezia, Denies coffee ground emesis, Denies dysphagia, Denies diarrhea, Denies nausea and Denies vomiting Denies urinary frequency, Denies dysuria, Denies urinary hesitancy and Denies urinary urgency Musc Denies arthralgias, Denies limited range of motion, Denies muscle cramps and Denies muscle weakness Skin/Breast Denies rash and Denies skin ulcer Neuro Denies Abnormal speech present, Denies confusion, Denies vertigo, Denies dizziness, Denies syncope, Denies headache(s), Denies memory loss and Denies seizure-like activity Psych Denies anxiety, Denies confusion, Denies depression, Denies memory loss, Denies panic attacks and Denies paranoia Endo Denies excessive sweating, Denies fatigue, Denies flushing, Denies polydipsia and Denies polyuria Aller/Immun Denies wheezing Physical exam (Primary Care) Vital Signs: Last Vital Signs Pulse 85 08/12/23 15:09 BP 122/68 08/12/23 15:09 Pulse Ox 98 08/12/23 15:09 Oxygen Delivery Method Room Air 08/12/23 15:09 BMI result Body Mass Index 21.9 Tobacco/Smoking Status: Tobacco use Status Tobacco use date assessed 08/12/23 08/12/23 15:28 Patient Tobacco Use Status Never used Tobacco 08/12/23 15:43 e-Cigarette/Vaping Use Never Used 08/12/23 15:43 PHQ-9: PHQ-9 Score PHQ-9: Total score 0 08/12/23 15:40 Depression Screening Interpretation: Negative Thrive Assessment: Date of Thrive Assessment Date Thrive assessed 08/12/23 08/12/23 15:11 Currently or been in a relationship where the following occur: no concerns reported Const General: cooperative, comfortable, no acute distress, alert and awake; No confusion Orientation/consciousness: oriented to person, oriented to place, patient oriented x3 and No confusion HENMT Head: Yes normocephalic Ears: external ears normal and TM's normal bilaterally Face and sinus: No sinus tenderness Mouth: Normal oral and palatal mucosa present and tongue normal Teeth and gingiva: dentition normal and gingiva normal Throat: Yes posterior oropharynx normal, Yes tonsils normal and Yes uvula midline Eyes Conjunctivae: conjunctivae normal Sclerae: sclerae normal Pupils: Equal, round and reactive pupils present EOM: EOMs intact bilaterally Direct Ophthalmoscopy: No no photophobia Neck Neck: Yes no lymphadenopathy, No tender and Yes no JVD Thyroid: Thyroid normal Carotids: no bruits Chest Chest palpation & inspection: no tenderness Resp Effort & Inspection: normal respiratory effort, no audible wheezes, not labored and no stridor Auscultation: no crackles, no rales, no rhonchi and no wheezes Cardio Jugular venous distension: no JVD Rate: regular rate, not bradycardic and not tachycardic Rhythm: regular rhythm Bruits: no carotid bruits Peripheral pulses: Peripheral pulses 2+ throughout GI Inspection: Yes normal to inspection, No abdominal wall ecchymosis and No visible herniation Palpation (GI): Soft to palpation, nontender, no guarding, not rigid and No hepatosplenomegaly present Auscultation: normoactive bowel sounds General: Yes no CVA tenderness Back/Spine/Pelvis Back: no CVA tenderness and No back tenderness Cervical Spine: cervical ROM normal Thoracic/Lumbar Spine: thoracic and lumbar spine normal to inspection, straight leg raise negative bilaterally, No thoraco-lumbar ROM limited and No lumbar spinal tenderness Skin Lesions: no lesions Rashes: no rashes Wounds: no wounds Neuro General: oriented to person, oriented to place, patient oriented x3, CN's II-XI intact bilaterally and No confusion Cranial nerves: Yes Equal, round and reactive pupils present and Yes Normal accommodation reflex present Cognition (Neuro): normal cognition Speech: No Abnormal speech present Gait exam (Neuro): Normal gait present Motor exam (neuro): 5/5 motor strength present throughout Extrem Right upper extremity: full ROM; no cyanosis Left upper extremity: full ROM; no cyanosis Right lower extremity: no edema Left lower extremity: no edema Psych Appearance: grossly normal Mental Status: mental status grossly normal Affect: normal affect Attitude: cooperative Thought process: Normal thought process present Assessment and Plan Assessment & Plan (1) Annual physical exam: Code(s): Z00.00 - Encounter for general adult medical examination without abnormal findings (2) Asthma: Code(s): J45.909 - Unspecified asthma, uncomplicated Qualifiers: Asthma complication type: uncomplicated Asthma persistence: intermittent Asthma severity: mild Qualified Code(s): J45.20 - Mild intermittent asthma, uncomplicated Plan: Albuterol inhaler ordered. Patient requesting chest x-ray, chest x-ray ordered. Patient advised to take 2 puffs every 4-6 hours as needed for shortness of breath and wheezing. Patient advised she has increasing shortness of breath and is using the inhaler frequently to call office for sooner follow-up. (3) Pectus excavatum: Code(s): Q67.6 - Pectus excavatum Plan: Patient advised to follow-up with surgeon as she feels her shortness of breath feeling could be related to past surgery. Recently seen at the ER received EKG which was normal.. She would like to reestablish care with surgeon for evaluation as she has been noticing some intermittent pains in her chest. Plan Follow-up in 6 months with [facility] for Asthma and 1 year for physical exam. Coding Level of Care Code Est Pt Prev Care 18-39y([id number]) Diagnoses Annual physical exam Z00.00 Mild intermittent asthma without complication J45.20 Asthma complication type: uncomplicated Asthma persistence: intermittent Asthma severity: mild Pectus excavatum Q67.6 Additional Codes CYNDI-7 Assessment Billing - CYNDI-7 Assessment Tool: CYNDI-7 Assessment [id number] ([id number])
== END 2023-08-12 15:54 | disposition home or self-care (01) ==
PROVIDERS: PCP Physician Assistant; Visit Provider Physician Assistant
DX: Z00.00 Encounter for general adult medical examination without abnormal findings (principal); J45.20 Mild intermittent asthma, uncomplicated; Q67.6 Pectus excavatum
CPT/HCPCS: 99395

== ENCOUNTER 2024-01-19 10:50 | Outpatient (REF) | payer OTHER, SELFPAY ==
[2024-01-20 05:52] LABS: CT PCR NOT DETECTED (Not Detect.); NG PCR NOT DETECTED (Not Detect.)
[2024-01-20 11:17] LABS: Bacterial Vaginosis PCR NEGATIVE (Negative); Candida Group PCR NOT DETECTED (Not Detect); Candida glab krusei PCR NOT DETECTED (Not Detect); Trichomonas vaginalis PCR NOT DETECTED (Not Detect)
== END 2024-01-19 10:51 | disposition home or self-care (01) ==
LOC: HO.LAB 10:50
PROVIDERS: Advanced Practice Midwife; PCP Physician Assistant; Visit Provider Physician Assistant
DX: Z01.419 Encounter for gynecological examination (general) (routine) without abnormal findings (principal); L40.9 Psoriasis, unspecified; N89.8 Other specified noninflammatory disorders of vagina; Z20.2 Contact with and (suspected) exposure to infections with a predominantly sexual mode of transmission
CPT/HCPCS: 0352U; 87491; 87591; 90471; 99212; 99385

== ENCOUNTER 2024-01-19 10:50 | Outpatient (AMB) | payer OTHER, SELFPAY ==
--- NOTE | 2024-01-19 10:52 | A.OFFPC_ITS ---
Vital Signs 3 01/19/24 10:59 Height 5 ft 2 in Weight 125 lb 2 oz BMI 22.9 BP 118/68 Blood Pressure Location Lt brachial Position Sitting Pulse 84 Pulse Source Pulse Oximeter Pulse Oximetry (%) 99 Oxygen Delivery Method Room Air Intake Visit Reasons: Scalp rash - Referral to Dermatology Roving Can Tender Required: No Accompanied by: Self / Same As Patient Allergies copper Allergy (Unknown, Verified 01/19/24 11:12) Rash adhesive tape Allergy (Verified 01/19/24 11:12) Rash Medication List - Last Reconciled 01/19/24 by Peterson Nair PA-C No Known Home Meds Tobacco use date assessed: 08/12/23 Dental Screening Dental Screen Date: 08/12/23 HPI Scalp rash - Referral to Dermatology 2 HPI0 Details Patient is a 23-year-old female here today for a problem visit. She is developed a itchy rash over her scalp over the last several months. Has been using special shampoos though has not been effective. Dermatology evaluation for evaluation and treatment. [facility] Medical History SOB (shortness of breath) Collapse of right lung Surgical History History of surgery History of appendectomy Family History Father No problems noted. Mother No problems noted. Brother No problems noted. 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 Neal Chang, Sindhu Ivory, Ascencion Ayers and colleagues, with an educational nathan from [employer]. Review of Systems Const Denies headache(s) Eyes Denies loss of vision ENT Denies vertigo, Denies dizziness, Denies headache(s) and Denies sore throat Card Denies chest pain, Denies leg edema and Denies lightheadedness Resp Denies cough, Denies hemoptysis and Denies wheezing GI Denies abdominal pain, Denies melena, Denies constipation, Denies diarrhea and Denies vomiting Denies urinary frequency, Denies dysuria and Denies urinary urgency Musc Denies arthralgias, Denies joint swelling, Denies numbness and Denies tingling Neuro Denies Abnormal speech present, Denies behavioral changes, Denies vertigo, Denies dizziness, Denies headache(s), Denies loss of vision, Denies memory loss, Denies numbness and Denies tingling Psych Denies anxiety, Denies behavioral changes, Denies depression, Denies memory loss and Denies panic attacks Rod/Lymph Denies easy bleeding and Denies easy bruising Aller/Immun Denies wheezing Physical exam (Primary Care) Vital Signs: Last Vital Signs Pulse 84 01/19/24 10:59 BP 118/68 01/19/24 10:59 Pulse Ox 99 01/19/24 10:59 Oxygen Delivery Method Room Air 01/19/24 10:59 BMI result Body Mass Index 22.9 Tobacco/Smoking Status: Tobacco use Status Tobacco use date assessed 08/12/23 01/19/24 10:52 Patient Tobacco Use Status Never used Tobacco 01/19/24 10:52 e-Cigarette/Vaping Use Never Used 01/19/24 10:52 Thrive Assessment: Date of Thrive Assessment Date Thrive assessed 08/12/23 01/19/24 10:52 Const General: healthy appearing, no acute distress, alert and awake Nutritional Appearance: well nourished Orientation/consciousness: oriented to person, oriented to place and oriented to time [facility] Head images: 2 1. PLAQUE-LIKE DRY SKIN LESION OVER THE BASE OF THE SKULL/HAIRLINE Ears: TM's normal bilaterally General nose exam: Normal nasal mucous membranes and turbinates present Eyes Conjunctivae: conjunctivae normal Sclerae: sclerae normal Pupils: Equal, round and reactive pupils present Neck Neck: Yes no lymphadenopathy and Yes no JVD Thyroid: Thyroid normal Carotids: no bruits Resp Effort & Inspection: normal respiratory effort and not tachypneic Auscultation: no crackles, no rales, no rhonchi and no wheezes Cardio Rate: regular rate Rhythm: regular rhythm Heart sounds: no murmurs and normal S1 and S2 GI Palpation (GI): Soft to palpation, nontender, no hepatomegaly and no splenomegaly Auscultation: normal bowel sounds Skin General skin exam: no rashes or lesions noted and dry skin Neuro General: oriented to person, oriented to place and oriented to time Cranial nerves: Yes Equal, round and reactive pupils present Speech: No Abnormal speech present Gait exam (Neuro): Normal gait present Motor exam (neuro): no tremor noted Extrem Right upper extremity: full ROM Left upper extremity: full ROM Right lower extremity: full ROM; no edema Left lower extremity: full ROM; no edema Psych Mental Status: mental status grossly normal Speech and movement: Normal speech and movement present Affect: normal affect Attitude: cooperative Thought process: Normal thought process present Office Procedures Flu Questionnaire Does the patient have a severe egg allergy?: No Immunizations Fluarix Triv [id number] (PF) 45 mcg (15 mcg x 3)/0.5 mL IM syringe Performing Provider: Peterson Nair PA-C Per[facility] [place] [facility] Documented (not given) by: JUAN CARLOS [place] on 01/19/24 10:59 Reason Not Given: Patient Refused Coding Level of Care Code Est Pt Level 3 (92004) 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 Will supply patient with clobetasol scalp solution. Will refer to Dermatology for further evaluation and treatment Orders: Orders 2 Influenza [id number] Immunization Today Z23 - Encounter for immunization Referrals 2 Dermatology Referral L40.9 - Psoriasis, unspecified Medications: New 2 clobetasol 0.05% 1 appl topical DAILY 50 mL 0RF 30 days L40.9 - Psoriasis, unspecified
[2024-01-19 10:59] VITALS: BP 118/68; PULSE 84; O2SAT 99; BMI 22.9
== END 2024-01-19 11:20 | disposition home or self-care (01) ==
LOC: HO.HMCH 10:50
PROVIDERS: PCP Physician Assistant; Visit Provider Physician Assistant
DX: Z23 Encounter for immunization (principal); L40.9 Psoriasis, unspecified

== ENCOUNTER 2024-01-19 14:22 | Outpatient (AMB) | payer OTHER, SELFPAY ==
[2024-01-19 14:39] VITALS: BP 118/62; BMI 23.4
--- NOTE | 2024-01-19 14:39 | MHC.OFFVIS ---
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 She is not currently sexually active but she was sometime in the last year she does not think she needs anything for control now she has never used anything either.. She does not think she needs or wants any blood tests for HIV hep B years C syphilis either. Her primary care provider is Peterson Nair.. 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 She has no other medical issues. She thinks her periods have been irregular but she has not been keeping track she only remembers that her last period was last week and she got 2 periods December when at the beginning of the last week. She did not get any periods in November but she does not remember any dates or any other details. She recently graduated some getting to associate's degree use at [employer] in criminal justice and 1 in general studies she is trying to figure out what her next step is. [facility] Medical History SOB (shortness of breath) Collapse of right lung Surgical History History of surgery History of appendectomy Family History Father No problems noted. Mother No problems noted. Brother No problems noted. 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 General: healthy appearing, comfortable, no acute distress, well developed and alert Nutritional Appearance: average body habitus Orientation/consciousness: patient oriented x3 Limitations: no limitations HEENT Head: Yes normocephalic Neck Neck: Yes normal visual inspection Chest Chest palpation & inspection: normal inspection of the chest Breast/axilla inspection: normal inspection of the breasts and normal inspection of the axillae Breast/axilla palpation: normal palpation of the breasts and normal palpation of the axillae Resp Effort & Inspection: normal respiratory effort GI Inspection: Yes normal to inspection, No Abdominal wall edema and No distended Palpation (GI): Soft to palpation and nontender Other: Normal external vulva vulva is pale in coloration patient says it has always been like that. Vagina is pink and moist nulliparous cervix pink moist healthy appearing clear and white mucus no abnormal discharge cervix nulliparous long close the mobile very deep in pelvis difficult to reach but nontender uterus midposition mobile nontender adnexa nontender enlarged very good tone with Kegel General: Yes bladder normal to palpation External Female Exam: normal external appearance and normal appearance of the urethra Speculum Exam - Vagina: normal appearance of the vagina, normal palpation and normal vaginal discharge Speculum Exam - Cervix: normal appearance of the cervix, normal palpation and nontender Bimanual exam- vagina & uterus: normal bimanual exam, normal palpation, uterine size normal, bladder normal to palpation, consistency normal, normal palpation, uterine mobility normal, uterine shape normal, No Cervical tenderness present, non-tender and no cervical motion tenderness Bimanual Exam- Adnexa, other: normal adnexae, no masses, normal and No adnexal tenderness Neuro General: patient oriented x3 Assessment & Plan Assessment & Plan (1) Well woman exam with routine gynecological exam: Code(s): Z01.419 - Encounter for gynecological examination (general) (routine) without abnormal findings Category: Medical (2) control counseling: Code(s): Z30.09 - Encounter for other general counseling and advice on contraception Category: Medical (3) Cervical cancer screening: Code(s): Z12.4 - Encounter for screening for malignant neoplasm of cervix Category: Medical (4) Encounter for screening examination for sexually transmitted disease: Code(s): Z11.3 - Encounter for screening for infections with a predominantly sexual mode of transmission Category: Medical Plan -----Discussed in this visit the following: healthy balanced diet, regular and consistent exercise, getting recommended health screens, doing the best she can for her particular health concerns, kegel exercises, pap smear screening and followup recommendations, mammography screening and SBE, normal changes in cycles in her life stage--- .This note is constructed using voice recognition software. While every effort has been made to ensure accuracy, windows security analyst errors may have been included. Reviewed options for control at the very least I would recommend using condoms if she becomes sexually active. I did offer her screening for HIV hep B hep C and syphilis but she declined that for now. Reviewed that today would testing for gonorrhea chlamydia and trichomoniasis as well as to noncommunicable organisms that are not necessary to treat unless they are symptomatic, Reviewed the importance of keeping track of her cycles and she is going to start now reviewed that it is really impossible to save her menses to irregular or not based on the harrison history that she provided in the not getting a period the month of November and getting to in December 15 at the beginning in at the end could be completely in keeping with being completely normal. Reviewed to watch for the changes within her cycle as time goes on she starts attention to this. We can see her in 1 year she needs anything at all before that. Coding Level of Care Code New Pt Prev Care 18-39yr(47600 Diagnoses Well woman exam with routine gynecological exam Z01.419 control counseling Z30.09 Cervical cancer screening Z12.4 Encounter for screening examination for sexually transmitted disease Z11.3
== END 2024-01-19 15:37 | disposition home or self-care (01) ==
LOC: HO.HWSM 14:23
PROVIDERS: PCP Physician Assistant; Visit Provider Advanced Practice Midwife
DX: Z01.419 Encounter for gynecological examination (general) (routine) without abnormal findings (principal); Z30.09 Encounter for other general counseling and advice on contraception; Z12.4 Encounter for screening for malignant neoplasm of cervix; Z11.3 Encounter for screening for infections with a predominantly sexual mode of transmission
CPT/HCPCS: 99385

== ENCOUNTER 2024-01-19 15:33 | Outpatient (REF) | payer OTHER, SELFPAY | END 2024-01-19 15:34 | disposition home or self-care (01) | LOC: HO.LNP 15:33 | PROVIDERS: Visit Provider Advanced Practice Midwife | DX: Z01.419 Encounter for gynecological examination (general) (routine) without abnormal findings (principal) | CPT/HCPCS: 88175 ==

== ENCOUNTER 2024-03-12 16:59 | Emergency (ER) | payer OTHER, SELFPAY ==
--- NOTE | ~2024-03-12 | US_ITS ---
CLINICAL HISTORY: torsion, left pelvic pain US pelvis transabdominal and transvaginal with Doppler Comparison: None Findings: Transabdominal scanning performed for overall anatomy. Transvaginal scanning performed for additional detail. Anteverted uterus is 6.5 cm length. Normal myometrium. Endometrium 3 mm thickness. Trace fluid in the endometrial stripe. Right ovary 3.6 x 2.2 x 2.2 cm. Left ovary 3.8 x 1.7 x 1.9 cm. Normal color Doppler with arterial/venous spectral tracing of both ovaries. No free fluid. IMPRESSION: 1. Normal pelvic ultrasound with Doppler. No evidence of ovarian torsion. This document has been electronically signed by: Nash Melo MD, PHD on 03/12/2024 23:28:00
[2024-03-12 17:18] VITALS: BP 146/94; PULSE 85; RESP 18; TEMP 36.9; O2SAT 97; BMI 23.8
--- NOTE | 2024-03-12 17:36 | ED_ITS ---
HPI - General Adult General Chief complaint: Abdominal Pain Stated complaint: pain in ovaries/sent from urgent care Time Seen by Provider: 03/12/24 22:01 Source: patient Limitations: no limitations History of Present Illness ED Provider: Jillian Patiño PA-C HPI narrative: 23-year-old female with a history of heavy menstrual bleeding, asthma, presents with abdominal pain x1 week. Pain over suprapubic region, described as burning sharp sensation. Patient states her period was 10 days late, she just started to bleed, she is experiencing heavy bleeding passing clots. Denies abnormal vaginal discharge or risk for STD. Denies history of ovarian cyst. Denies nausea vomiting diarrhea. Denies dysuria. No fevers. Related Data Previous Rx's ?Medication ?Instructions ?Recorded clobetasol 0.05 % scalp solution 1 appl topical DAILY 30 days #50 mL 01/19/24 cephalexin 500 mg capsule 500 mg PO BID #14 caps 03/13/24 ketorolac 10 mg tablet 10 mg PO Q6H PRN pain #20 tabs 03/13/24 Allergies Allergy/AdvReac Type Severity Reaction Status Date / Time copper Allergy Unknown Rash Verified 03/12/24 17:21 adhesive tape Allergy Rash Verified 01/19/24 14:40 Review of Systems 2 Review of Systems: Yes all other systems are reviewed and are negative Constitutional: Constitutional: Denies fatigue and Denies fever(s) Cardiovascular: Cardiovascular: Denies chest pain and Denies dyspnea Respiratory: Respiratory: Denies cough and Denies dyspnea Gastrointestinal: Gastrointestinal: Reports abdominal pain, Denies diarrhea, Denies nausea and Denies vomiting Genitourinary: Genitourinary: Reports dysmenorrhea, Denies dysuria, Reports pelvic pain and Denies vaginal discharge Endocrine: Endocrine: Denies fatigue [facility] Past Medical History Attestation statement: The following information was validated with the patient. Medical History SOB (shortness of breath) Collapse of right lung Surgical History History of surgery History of appendectomy Family History Family History Father No problems noted. Mother No problems noted. Brother No problems noted. Social History Social History Housing: Apartment Alcohol intake: current Alcohol intake frequency: holidays/special occasions only Patient Tobacco Use Status: Never used Tobacco e-Cigarette/Vaping Use: Never Used Second Hand Smoke Exposure: No Advance Directives: No Advance Directives Information Provided: No service: No Current occupational status: employed and student Current occupation: [email or web address] Current occupational exposures/hazards: No Cognitive needs: No Hearing needs: No Vision needs: No Physical Exam ED Vital Signs: Vital Signs - 24 hr 03/12/24 17:18 Temperature 98.5 F Pulse Rate 85 Respiratory Rate 18 Blood Pressure 146/94 H Pulse Oximetry 97 Oxygen Delivery Method Room Air BMI result Body Mass Index 23.8 Const Other: Alert, well-appearing Orientation/consciousness: patient oriented x3 Resp Effort & Inspection: normal respiratory effort Cardio Other: Normal peripheral perfusion GI Other: Abdomen is soft, nondistended, mild tenderness over suprapubic region, more pronounced discomfort left pelvic region without guarding Other: Defer Skin Other: Warm dry no rash Neuro General: patient oriented x3, no focal motor deficits and CN's II-XI intact bilaterally Psych Other: Calm cooperative Course Course Course Narrative: RME performed by Rand Jordan PA-C. Patient is a 23 year old assigned female at presenting to the emergency department with abdominal pain. Detailed physical exam and review of systems are deferred to the butadiene compressor operator. Labs and swabs ordered. Patient placed back in the waiting room pending room availability and results. Medications Administered Discontinued Medications Generic Name Dose Route Start Last Admin Trade Name Fernando PRN Reason Stop Dose Admin Cephalexin HCl 500 mg 03/12/24 22:48 03/12/24 23:13 Cephalexin 500 Mg Capsule PO 03/12/24 22:49 500 mg ONCE ONE Administration Ketorolac Tromethamine 15 mg 03/12/24 22:48 03/12/24 23:13 Ketorolac Tromethamine 15 Mg/Ml Vial IM 03/12/24 22:49 15 mg ONCE ONE Administration Medical Decision Making Medical Decision Making MDM Narrative: 23-year-old female with a history of heavy menstrual bleeding, asthma, presents with abdominal pain x1 week. Pain over suprapubic region, described as burning sharp sensation. Patient states her period was 10 days late, she just started to bleed, she is experiencing heavy bleeding passing clots. Denies abnormal vaginal discharge or risk for STD. Denies history of ovarian cyst. Denies nausea vomiting diarrhea. Denies dysuria. No fevers. Problem: Heavy menstrual bleeding History: Per patient I have considered the following differential diagnoses: Menorrhagia, dysmenorrhea, ovarian cysts, torsion, PID, TOA, UTI Plan: Patient has a history of menorrhagia, perhaps she is developing dysmenorrhea. She has no history of ovarian cysts, however, this pain is different than her norm, we will obtain a transvaginal ultrasound to rule out torsion. We will give Toradol for her discomfort. Patient has a questionable urinalysis, she could have a UTI given suprapubic discomfort, we will treat with cephalexin. Thought about PID and torsion, however she has no risk for STD and she has no preceding abnormal vaginal discharge. Thought about diverticulitis given left lower sided symptoms, however she has no active GI symptoms, and her pain is pelvic versus intra-abdominal on exam. She does not warrant a CT scan at this time. I have independently reviewed the following tests: Labs: No leukocytosis, not anemic, no electrolyte abnormality, urine question of infection, not Transvaginal ultrasound:MPRESSION: 1. Normal pelvic ultrasound with Doppler. No evidence of ovarian torsion. This document has been electronically signed by: Nash Melo MD, PHD on 03/12/2024 23:28:00 Lab Data 03/12/24 17:44 03/12/24 17:44 Labs: Lab Results 03/12/24 03/12/24 Range/Units 17:44 17:47 WBC 9.4 (4.8-10.8) X10*3/uL RBC 4.89 (4.20-5.50) X10*6/uL Hgb 12.4 (12.0-16.0) g/dl Hct 37.8 (37.0-47.0) % MCV 77.3 L (80.0-98.0) fL MCH 25.4 L (27.0-33.0) pg MCHC 32.8 (31.0-35.0) g/dl RDW 14.4 (11.0-16.0) % Plt Count 333 (160-400) X10*3/uL MPV 10.2 (9.4-12.3) fL Immature Gran % (Auto) 0.4 (0.0-0.4) % Neut % (Auto) 67.8 (45-73) % Lymph % (Auto) 21.2 (20-40) % Montague % (Auto) 9.0 (2-11) % Eos % (Auto) 1.0 (0-4) % Baso % (Auto) 0.6 (0-2) % Lymph # (Auto) 2.0 (1.2-4.9) X10*3/uL [place] # (Auto) 0.9 (0.1-1.2) X10*3/uL Eos # (Auto) 0.1 (0.0-0.4) X10*3/uL Baso # (Auto) 0.1 (0.0-0.2) X10*3/uL Abs Immat Gran (auto) 0.04 H (0.00-0.03) X10*3/uL Absolute Neuts (auto) 6.4 (2.0-8.3) x10*3/uL Absolute Nucleated RBC 0.000 (0.0-0.012) X10*3/uL Nucleated RBC % (auto) 0.0 (0.0-0.2) /100WBC Sodium 140 (135-145) mmol/L Potassium 3.7 (3.3-5.1) mmol/L Chloride 100 (96-108) mmol/L Carbon Dioxide 28 (22-29) mmol/L Anion Gap 16 (12-20) BUN 11 (9-16) mg/dL Creatinine 0.67 (0.5-1.4) mg/dL Estim Creat Clear Calc 102.3 Estimated GFR > 60 Random Glucose 99 (60-115) mg/dL Calcium 8.8 (8.4-10.2) mg/dL Magnesium 2.2 (1.6-2.6) mg/dL Total Bilirubin 0.3 (0.0-1.0) mg/dL AST 26 (5-31) U/L ALT 15 (0-31) U/L Alkaline Phosphatase 94 (39-117) U/L Total Protein 7.2 (6.5-8.0) g/dL Albumin 4.4 (3.5-5.0) g/dL Beta HCG, Quant < 2 mIU/mL Urine Color Red A Urine Appearance Cloudy Urine pH 6.5 (5.0-9.0) Ur Specific Burton 1.020 (1.005-1.025) Urine Protein 30 (1+) H (Neg-Trace) mg/dL Urine Glucose (UA) Negative (Negative) mg/dL Urine Ketones Negative (Negative) mg/dL Urine Blood Large (3+) H (Negative) Urine Nitrite Negative (Negative) Ur Leukocyte Esterase Moderate (2+) H (Negative) Urine RBC >20 H (0-2) /HPF Urine WBC 21-50 H (0-5) /HPF Ur Squamous Epith Cells 6-10 (0-2) /HPF Urine Bacteria 2+ (None Seen) Hyaline Casts 0-2 (0-2) /LPF Influenza Type A (PCR) NEGATIVE (Negative) Influenza Type B (PCR) NEGATIVE (Negative) RSV RNA Qual (PCR) NEGATIVE (Negative) SARS-CoV-2 RNA (RT-PCR) NEGATIVE (Negative) Discharge Plan Discharge Clinical Impression: Pelvic pain, Dysmenorrhea, Menometrorrhagia, Urinary tract infection Patient Disposition: Home, Self-Care Instructions: Dysmenorrhea (ED), Urinary Tract Infection in Women (DC), Menorrhagia (ED) Additional Instructions: Overall, all your labs were normal, including your kidney function. You have a suspect urinary tract infection, see home care instructions. Use the cephalexin as directed. The transvaginal ultrasound was normal. I suspect given you have heavy periods, you are developing pelvic pain when you have period. I have given you information to read about both of these conditions; dysmenorrhea and menorrhagia. The ketorolac we will help this discomfort. Continue to follow up with your graphic design teacher and your primary care provider. Prescriptions: New ketorolac 10 mg tablet 10 mg PO Q6H PRN (Reason: pain) Qty: 20 0RF Rx Instructions: maximum total duration of 5 days from all oral, intranasal, or parenteral formulations. Patient received an intramuscular dose of Toradol here in the emergency department. cephalexin 500 mg capsule 500 mg PO BID Qty: 14 0RF No Action clobetasol 0.05 % solution 1 appl topical DAILY 30 Days Qty: 50 0RF Print Language: [place]
[2024-03-12 17:53] LABS: MANUAL DIFF FLAG NO
[2024-03-12 17:58] LABS: Basophils Absolute Auto 0.1 X10*3/uL (0.0-0.2); Basophils Percent Auto 0.6 % (0-2); Eosinophils Absolute Auto 0.1 X10*3/uL (0.0-0.4); Hematocrit 37.8 % (37.0-47.0); Hemoglobin 12.4 g/dl (12.0-16.0); Imm Gran Abs Auto 0.04 X10*3/uL (0.00-0.03); Imm Gran Pct Auto 0.4 % (0.0-0.4); Lymphocytes Percent Auto 21.2 % (20-40); Mean Corpuscular HGB Conc 32.8 g/dl (31.0-35.0); Mean Corpuscular Hemoglobin 25.4 pg (27.0-33.0); Mean Corpuscular Volume 77.3 fL (80.0-98.0); Mean Platelet Volume 10.2 fL (9.4-12.3); Monocytes Absolute Auto 0.9 X10*3/uL (0.1-1.2); Neutrophils Absolute Auto 6.4 x10*3/uL (2.0-8.3); Neutrophils Percent Auto 67.8 % (45-73); Platelet Count 333 X10*3/uL (160-400); Red Blood Count 4.89 X10*6/uL (4.20-5.50); Red Cell Distribution Width 14.4 % (11.0-16.0); White Blood Count 9.4 X10*3/uL (4.8-10.8)
[2024-03-12 17:58] LABS: Appearance Urine Cloudy; Color Urine Red; Glucose Urine UA Negative (Negative); Leukocyte Esterase Urine Moderate (2+) (Negative); Nitrite Urine Negative (Negative); PH 6.5 (5.0-9.0); UMIC TRIGGER UACC YES; Urine Blood Large (3+) (Negative); Urine Ketones Negative (Negative); Urine Protein 30 (1+) mg/dL (Neg-Trace)
[2024-03-12 18:00] LABS: Bacteria Urine 2+ (None Seen); Hyaline Casts Urine 0-2 /LPF (0-2); RBC Urine >20 /HPF (0-2); UACC Culture Trigger YES; WBC Urine 21-50 /HPF (0-5)
[2024-03-12 18:18] LABS: Alanine Aminotransferase 15 U/L (0-31); Albumin Level 4.4 g/dL (3.5-5.0); Alkaline Phosphatase 94 U/L (39-117); Anion Gap 16 (12-20); Aspartate Amino Transferase 26 U/L (5-31); Bilirubin Total 0.3 mg/dL (0.0-1.0); Blood Urea Nitrogen 11 mg/dL (9-16); Calcium 8.8 mg/dL (8.4-10.2); Carbon Dioxide 28 mmol/L (22-29); Chloride 100 mmol/L (96-108); Creatinine Clr Calc Pharmacy 102.3; Estimated Glomerular Filt Rate > 60; Glucose Random 99 mg/dL (60-115); HCG Quantitative < 2 mIU/mL; Magnesium 2.2 mg/dL (1.6-2.6); Potassium 3.7 mmol/L (3.3-5.1); Sodium 140 mmol/L (135-145); Total Protein 7.2 g/dL (6.5-8.0)
[2024-03-12 18:29] LABS: Influenza A PCR NEGATIVE (Negative); Influenza B PCR NEGATIVE (Negative); Resp Syncy Virus RNA Qual PCR NEGATIVE (Negative); SARS COV2 PCR INHOUSE NEGATIVE (Negative)
[2024-03-12] MEDS: Ketorolac Tromethamine 15 MG/ML VIAL IM (23:13)
[2024-03-12] MEDS: cephALEXin 500 MG CAPSULE PO (23:13)
[2024-03-13 01:01] VITALS: BP 122/60; PULSE 79; RESP 17; TEMP 36.6; O2SAT 98
== END 2024-03-13 01:01 | disposition home or self-care (01) ==
PROVIDERS: Physician Assistant Medical; Emergency Provider Emergency Medicine; PCP Physician Assistant
DX: R10.2 Pelvic and perineal pain (principal); N94.4 Primary dysmenorrhea; N92.1 Excessive and frequent menstruation with irregular cycle; N39.0 Urinary tract infection, site not specified; Z03.818 Encounter for observation for suspected exposure to other biological agents ruled out; Z79.899 Other long term (current) drug therapy
CPT/HCPCS: 0241U; 76830; 76856; 80053; 81001; 83735; 84702; 85025; 87086; 87147; 93975; 96372; 99283; 99284; J1885

== ENCOUNTER → 2024-03-12 22:48 | Outpatient (BNV) | payer OTHER, SELFPAY | PROVIDERS: Emergency Provider Emergency Medicine; PCP Physician Assistant; Visit Provider General Practice | DX: R10.2 Pelvic and perineal pain (principal) | CPT/HCPCS: 76856; 93975 ==

== ENCOUNTER 2024-03-30 08:49 | Outpatient (AMB) | payer OTHER, SELFPAY ==
--- NOTE | 2024-03-30 08:53 | A.OFFPC_ITS ---
Vital Signs 3 03/30/24 08:55 Height 5 ft 2 in Weight 125 lb 4 oz BMI 22.9 BP 100/68 Blood Pressure Location Lt brachial Position Sitting Pulse 101 H Pulse Source Pulse Oximeter Pulse Oximetry (%) 98 Oxygen Delivery Method Room Air Intake Visit Reasons: [facility]/Urgent care FU Intake Note: Patient is here to follow-up after a visit the emergency department at [facility] and [place] on two weeks ago. School Athletic Director Required: No Polishing Wheel Setter: Not Required per policy Accompanied by: Self / Same As Patient Allergies copper Allergy (Unknown, Verified 03/30/24 09:22) Rash adhesive tape Allergy (Verified 03/30/24 09:22) Rash Medication List - Last Reconciled 03/30/24 by Peterson Nair PA-C cephalexin 500 mg PO BID meloxicam 15 mg PO DAILY 14 days sertraline 50 mg PO DAILY 30 days Tobacco use date assessed: 03/30/24 Dental Screening Dental Screen Date: 03/30/24 Did you have a dental visit in the last 12 months?: No Did you have a dental problem in the last 6 months where you did not have access to dental care?: No Was dental information given to patient?: Patient has dentist HPI [facility]/Urgent care FU 2 HPI0 Details The patient is a 23-year-old female presenting with pelvic pain and anxiety. The pelvic pain started approximately three weeks ago, positioned primarily under the umbilicus. The quality of the pain was described as cramping, though not typical menstrual cramps. The patient has experienced no fever, vomiting, or changes in bowel habits. The initial evaluation at a local hospital included an ultrasound that indicated normal ovarian and uterine structures as well as a urinalysis, which showed hematuria and white blood cells, suggesting a urinary tract infection. Antibiotics were prescribed, which provided some relief but did not eliminate the pain. She was advised against an early CT scan due to her age and radiation concerns. Additionally, she reports increased anxiety, described as chronic, but worsening over the past few weeks. Her anxiety escalates when alone, compelling her to seek company continually. [facility] Medical History SOB (shortness of breath) Collapse of right lung Surgical History History of surgery History of appendectomy Family History Father No problems noted. Mother No problems noted. Brother No problems noted. Social History Housing: Apartment Alcohol intake: current Alcohol intake frequency: holidays/special occasions only Patient Tobacco Use Status: Never used Tobacco e-Cigarette/Vaping Use: Never Used Second Hand Smoke Exposure: No service: No Current occupational status: employed and student Current occupation: [employer] Current occupational exposures/hazards: No Cognitive needs: No Hearing needs: No Vision needs: No Female Reproductive History Menstrual Age of Menarche: 11 Questionnaire PHQ-9 Over the last 2 weeks, how often have you been bothered by any of the following problems? 1. Little interest or pleasure in doing things: not at all 2. Feeling down, depressed, or hopeless: not at all 3. Trouble falling or staying asleep, or sleeping too much: not at all 4. Feeling tired or having little energy: not at all 5. Poor appetite or overeating: not at all 6. Feeling bad about yourself - or that you are a failure or have let yourself or your family down: not at all 7. Trouble concentrating on things, such as reading the newspaper or watching television: not at all 8. Moving or speaking so slowly that other people could have noticed. Or the opposite - being so fidgety or restless that you have been moving around a lot more than usual: not at all 9. Thoughts that you would be better off or of hurting yourself in some way: not at all Total score: 0 Depression Screening Interpretation: Negative Depression Screening Done: Yes 72989 - PHQ-9 Billing: Yes Source: Developed by Drs. Neal Chang, Sindhu Ivory, Ascencion Ayers and colleagues, with an educational nathan from [employer]. Thrive Questionnaire Date Thrive assessed: 03/30/24 I am a: Patient What is your living situation today?: I have a steady place to live Within the past 12 months, did the food you bought not last and you didn't have the money to get more?: Never true Within the past 12 months, did you worry whether your food would run out before you got money to buy more?: Never true Do you have trouble paying for medicines?: No Do you have trouble getting transportation to medical appointments?: No Do you have trouble paying your heating and electricity bill?: No Do you have trouble taking care of your child, family member or friend?: No Do you have trouble with day-to-day activities such as bathing, preparing meals, shopping, managing finances, etc.?: No Are you currently unemployed and looking for a job?: No Are you interested in more education?: No Please select the resources that you would like help with: None Currently or been in a relationship where the following occur: No concerns reported THRIVE Score: 0 AUDIT C Alcohol Use Questionnaire (AUDIT-C) 1. How often do you have a drink containing alcohol?: Monthly or less 2. How many drinks containing alcohol do you have on a typical day when you are drinking?: 1 or 2 Total Score: 1 CYNDI-7 AMB Questionnaire CYNDI-7 Date CYNDI - 7 assessed: 03/30/24 Feeling nervous, anxious, or on edge: 3 = Nearly every day Not being able to stop or control worryin = Several days Worrying too much about different things: 1 = Several days Trouble relaxin = Several days Being so restless that it is hard to sit still: 1 = Several days Becoming easily annoyed or irritable: 0 = Not at all Feeling afraid as if something awful might happen: 0 = Not at all Total CYNDI-7 score (0-4 normal; 5-9 mild; 10-14 moderate; 15-21 severe): 7 Source: Developed by Drs. Neal Chang, Sindhu Ivory, Ascencion Ayers and colleagues, with an educational nathan from [employer]. CYNDI-7 Assessment Billing CYNDI-7 Assessment Tool: CYNDI-7 Assessment 19188 Review of Systems Const Denies headache(s) Eyes Denies loss of vision ENT Denies vertigo, Denies dizziness, Denies headache(s) and Denies sore throat Card Denies chest pain, Denies leg edema and Denies lightheadedness Resp Denies cough, Denies hemoptysis and Denies wheezing GI Denies abdominal pain, Denies melena, Denies constipation, Denies diarrhea and Denies vomiting Denies urinary frequency, Denies dysuria and Denies urinary urgency Musc Denies arthralgias, Denies joint swelling, Denies numbness and Denies tingling Neuro Denies Abnormal speech present, Denies behavioral changes, Denies vertigo, Denies dizziness, Denies headache(s), Denies loss of vision, Denies memory loss, Denies numbness and Denies tingling Psych Denies anxiety, Denies behavioral changes, Denies depression, Denies memory loss and Denies panic attacks Rod/Lymph Denies easy bleeding and Denies easy bruising Aller/Immun Denies wheezing Physical exam (Primary Care) Vital Signs: Last Vital Signs Pulse 101 H 03/30/24 08:55 BP 100/68 03/30/24 08:55 Pulse Ox 98 03/30/24 08:55 Oxygen Delivery Method Room Air 03/30/24 08:55 BMI result Body Mass Index 22.9 Tobacco/Smoking Status: Tobacco use Status Tobacco use date assessed 03/30/24 03/30/24 08:58 Patient Tobacco Use Status Never used Tobacco 03/30/24 08:58 e-Cigarette/Vaping Use Never Used 03/30/24 08:58 PHQ-9: PHQ-9 Score PHQ-9: Total score 0 03/30/24 09:22 Depression Screening Interpretation: Negative Thrive Assessment: Date of Thrive Assessment Date Thrive assessed 03/30/24 03/30/24 08:58 Currently or been in a relationship where the following occur: No concerns reported Const General: healthy appearing, no acute distress, alert and awake Nutritional Appearance: well nourished Orientation/consciousness: oriented to person, oriented to place and oriented to time [facility] Ears: TM's normal bilaterally General nose exam: Normal nasal mucous membranes and turbinates present Eyes Conjunctivae: conjunctivae normal Sclerae: sclerae normal Pupils: Equal, round and reactive pupils present Neck Neck: Yes no lymphadenopathy and Yes no JVD Thyroid: Thyroid normal Carotids: no bruits Resp Effort & Inspection: normal respiratory effort and not tachypneic Auscultation: no crackles, no rales, no rhonchi and no wheezes Cardio Rate: regular rate Rhythm: regular rhythm Heart sounds: no murmurs and normal S1 and S2 GI Palpation (GI): Soft to palpation, nontender, no hepatomegaly and no splenomegaly Auscultation: normal bowel sounds Abdomen image: 2 1. TENDERNESS TO DEEP PALPATION IN THE AREA OUTLINED Skin General skin exam: no rashes or lesions noted and dry skin Neuro General: oriented to person, oriented to place and oriented to time Cranial nerves: Yes Equal, round and reactive pupils present Speech: No Abnormal speech present Gait exam (Neuro): Normal gait present Motor exam (neuro): no tremor noted Extrem Right upper extremity: full ROM Left upper extremity: full ROM Right lower extremity: full ROM; no edema Left lower extremity: full ROM; no edema Psych Mental Status: mental status grossly normal Speech and movement: Normal speech and movement present Affect: normal affect Attitude: cooperative Thought process: Normal thought process present Coding Level of Care Code Est Pt Level 4 (73452) Diagnoses Periumbilical pain R10.33 CYNDI (generalized anxiety disorder) F41.1 Additional Codes CYNDI-7 Assessment Billing - CYNDI-7 Assessment Tool: CYNDI-7 Assessment 38122 ([id number]) PHQ-9 - 33206 - PHQ-9 Billing: Yes ([id number]) Assessment & Plan Assessment & Plan (1) Periumbilical pain: Code(s): R10.33 - Periumbilical pain Category: Medical Plan: I discussed with the patient the likely causes of her pelvic pain, emphasizing the prior UTI and subsequent bladder inflammation as possible contributors. I recommended a follow-up urine test to ensure the infection is resolved and proposed an abdominal ultrasound to rule out other potential issues. (2) CYNDI (generalized anxiety disorder): Code(s): F41.1 - Generalized anxiety disorder Category: Medical Plan: Patient's CYNDI-7 score positive for anxiety which has been existing condition for her. She reports she is at point she would like to try medication and please speak with a mental health therapist.. We deliberated on managing anxiety through medication and therapy, detailing sertraline's role and introducing meloxicam for its anti-inflammatory effects. I addressed the benefits of therapy for anxiety management and how somatic pain could potentially be linked to her psychological state. Orders: Orders 2 UA CC w/rflx Micro + Cult 03/30/24 R10.33 - Periumbilical pain, R30.0 - Dysuria US abdomen complete 03/30/24 R10.33 - Periumbilical pain Referrals 2 Counseling Referral F41.1 - Generalized anxiety disorder Medications: New 2 meloxicam 15 mg PO DAILY 14 tabs 0RF 14 days R10.33 - Periumbilical pain sertraline 50 mg PO DAILY 30 tabs 1RF 30 days F41.1 - Generalized anxiety disorder Discontinued 2 ketorolac maximum total duration of 5 days from all oral, intranasal, or parenteral formulations. Patient received an intramuscular dose of Toradol here in the emergency department. Discontinued Reason: Doctor's Order 10 mg PO Q6H PRN 20 tabs 0RF pain
[2024-03-30 08:55] VITALS: BP 100/68; PULSE 101; O2SAT 98; BMI 22.9
== END 2024-03-30 09:53 | disposition home or self-care (01) ==
PROVIDERS: PCP Physician Assistant; Visit Provider Physician Assistant
DX: R10.33 Periumbilical pain (principal); F41.1 Generalized anxiety disorder

== ENCOUNTER → 2024-03-30 08:49 | Outpatient (BNVA) | payer OTHER, SELFPAY | PROVIDERS: PCP Physician Assistant; Visit Provider Physician Assistant | DX: R10.2 Pelvic and perineal pain (principal); R10.33 Periumbilical pain; F41.1 Generalized anxiety disorder; R30.0 Dysuria | CPT/HCPCS: 96127; 99212 ==

== ENCOUNTER 2024-04-09 09:05 | Outpatient (REF) | payer OTHER, SELFPAY ==
--- NOTE | ~2024-04-09 | US_ITS ---
EXAMINATION: US ABDOMEN HISTORY: R10.33 - Periumbilical pain TECHNIQUE: Real-time grayscale ultrasound imaging of the abdomen was performed and images were reviewed. COMPARISON: There are no prior studies for comparison. FINDINGS: Liver: The liver is normal in size, but demonstrates mildly increased echotexture, consistent with steatosis. No focal mass or intrahepatic biliary ductal dilatation is identified. Gallbladder and biliary tree: The gallbladder is unremarkable, without evidence of calculi, wall thickening, or pericholecystic fluid. There is no sonographic Lainez sign. The common bile duct is normal in caliber measuring 2 mm. Kidneys: The right kidney measures 10.3 cm in length. The left kidney measures 9.9 cm in length. The kidneys are unremarkable, without evidence of masses, hydronephrosis, or calculi. Pancreas: The pancreatic head, neck, and body are unremarkable. The pancreatic tail is obscured by bowel gas. Spleen: The spleen is normal in size and contour, measuring 10.3 cm in length. Abdominal aorta and inferior vena cava: The visualized portions of the abdominal aorta and inferior vena cava are normal in caliber. There is no free fluid in the abdomen. Scans of the periumbilical region, with the patient indicated pain, demonstrates no abnormality. US/US abdomen complete IMPRESSION: Mild hepatic steatosis. Otherwise unremarkable abdominal ultrasound. Electronically signed by: Neal Miller MD 04/09/2024 10:11 AM [facility]
== END 2024-04-09 09:06 | disposition home or self-care (01) ==
LOC: HO.HMGCX 09:05
PROVIDERS: PCP Physician Assistant; Visit Provider Physician Assistant
DX: R10.33 Periumbilical pain (principal)
CPT/HCPCS: 76700

== ENCOUNTER → 2024-04-09 09:13 | Outpatient (BNV) | payer OTHER, SELFPAY | PROVIDERS: PCP Physician Assistant; Visit Provider Radiology Diagnostic Radiology | DX: R10.33 Periumbilical pain (principal) | CPT/HCPCS: 76700 ==

== ENCOUNTER 2024-04-27 14:31 | Outpatient (AMB) | payer OTHER, SELFPAY ==
[2024-04-27 14:42] VITALS: BP 112/68; BMI 22.9
--- NOTE | 2024-04-27 14:42 | A.OFFVIS_ITS ---
Vital Signs 04/27/24 14:42 Height 5 ft 2 in Weight 125 lb BMI 22.9 BP 112/68 Intake Visit Reasons: AUB Space Operations Officer Required: No Space Operations Officer Services: Space Operations Officer Present Information Interpreted: clinical only Sports Journalist: Sports Journalist Present Allergies copper Allergy (Unknown, Verified 04/27/24 14:43) Rash adhesive tape Allergy (Verified 04/27/24 14:43) Rash Medication List - Last Reconciled 04/27/24 by Marilyn Phillips CNM No Known Home Meds Is last menstrual period known: Yes Last menstrual period: 04/01/24 (start 04/01/24 to 04/27/24) HPI HPI AUB: Details: Patient is here because she has had a confusing constellation of events and symptoms in the last couple of months she is currently not sexually active last time was sometime in December or maybe before she was getting regular periods, she had a period that was normal in January on February 05 lasted till the and appeared that was normal on March 11 2 the 15 of March on March 12 she had really severe pain in her abdomen and she went to the emergency room and they did not evaluation. Also around this time she had had an injury to her back and she had been seeing a chiropractor and they did an MRI on April 20 that showed a 3.6 cm left adnexal mass that could be a cyst. In March on 04/09/2024 she had had a pelvic ultrasound done to evaluate pain as well she was bleeding at that time she also had a urinary culture done that was partly contaminated but also showed group B strep they started her on 1 antibiotic in her primary changed it to a different antibiotic her bleeding that is started on April 01 is just ending now on April 27 [facility] Medical History SOB (shortness of breath) Collapse of right lung Surgical History History of surgery History of appendectomy Family History Father No problems noted. Mother No problems noted. Brother No problems noted. Social History Housing: Apartment Alcohol intake: current Alcohol intake frequency: holidays/special occasions only Patient Tobacco Use Status: Never used Tobacco e-Cigarette/Vaping Use: Never Used Second Hand Smoke Exposure: No service: No Current occupational status: employed and student Current occupation: [employer] Current occupational exposures/hazards: No Cognitive needs: No Hearing needs: No Vision needs: No Female Reproductive History Menstrual Age of Menarche: 11 Duration of menses: other Date of last menstrual period: 04/01/24 (start 04/01/24 to 04/27/24) control method: none Total pregnancies: 0 Date of last pap smear: 01/20/24 (negative) Physical Exam Vital Signs: BMI result Body Mass Index 22.9 Other: Normal external exam very thin Julia speculum used which does not allow for full visualization of cervix however mucosa is normal and all tissue appears pink and normal and healthy with scant white discharge. Cervix is long close thick mobile nontender consistent with nulliparous patient and uterus is nontender nonenlarged adnexa is nontender nonenlarged very good muscle tone with Kegel. External Female Exam: normal external appearance Speculum Exam - Vagina: normal appearance of the vagina and normal vaginal discharge Speculum Exam - Cervix: normal appearance of the cervix Bimanual exam- vagina & uterus: normal bimanual exam, uterine size normal, consistency normal, uterine mobility normal, uterine shape normal and non-tender Bimanual Exam- Adnexa, other: normal adnexae, no masses and No adnexal tenderness Results Reviewed Results Reviewed: Patient: Trini Whitfield MR#: [id number] : 2000 Acct:[id number] Age/Sex: 23 / F ADM Date: 03/12/24 Loc: HO.ED Attending Dr: Ordering Physician: Jillian Patiño Date of Service: 03/12/24 Procedure(s): US pelvic and transvaginal Accession Number(s): [id number] cc: Peterson Nair PA-C; Jillian Patiño~ CLINICAL HISTORY: torsion, left pelvic pain US pelvis transabdominal and transvaginal with Doppler Comparison: None Findings: Transabdominal scanning performed for overall anatomy. Transvaginal scanning performed for additional detail. Anteverted uterus is 6.5 cm length. Normal myometrium. Endometrium 3 mm thickness. Trace fluid in the endometrial stripe. Right ovary 3.6 x 2.2 x 2.2 cm. Left ovary 3.8 x 1.7 x 1.9 cm. Normal color Doppler with arterial/venous spectral tracing of both ovaries. No free fluid. IMPRESSION: 1. Normal pelvic ultrasound with Doppler. No evidence of ovarian torsion. This document has been electronically signed by: Nash Melo MD, PHD on 03/12/2024 23:28:00 Dictated By: Nash Melo MD Signed By: <Electronically signed by Nash Melo MD in OV> 03/12/242328 DD/ 27 atient: Trini Whitfield MR#: [id number] : 2000 Acct:[id number] Age/Sex: 23 / F ADM Date: 04/09/24 Loc: HO.HMGCX Attending Dr: Peterson Nair PA-C Ordering Physician: Peterson Nair PA-C Date of Service: 04/09/24 Procedure(s): US abdomen complete Accession Number(s): [id number] cc: Peterson Nair PA-C~ EXAMINATION: US ABDOMEN HISTORY: R10.33 - Periumbilical pain TECHNIQUE: Real-time grayscale ultrasound imaging of the abdomen was performed and images were reviewed. COMPARISON: There are no prior studies for comparison. FINDINGS: Liver: The liver is normal in size, but demonstrates mildly increased echotexture, consistent with steatosis. No focal mass or intrahepatic biliary ductal dilatation is identified. Gallbladder and biliary tree: The gallbladder is unremarkable, without evidence of calculi, wall thickening, or pericholecystic fluid. There is no sonographic Lainez sign. The common bile duct is normal in caliber measuring 2 mm. Kidneys: The right kidney measures 10.3 cm in length. The left kidney measures 9.9 cm in length. The kidneys are unremarkable, without evidence of masses, hydronephrosis, or calculi. Pancreas: The pancreatic head, neck, and body are unremarkable. The pancreatic tail is obscured by bowel gas. Spleen: The spleen is normal in size and contour, measuring 10.3 cm in length. Abdominal aorta and inferior vena cava: The visualized portions of the abdominal aorta and inferior vena cava are normal in caliber. There is no free fluid in the abdomen. Scans of the periumbilical region, with the patient indicated pain, demonstrates no abnormality. US/US abdomen complete IMPRESSION: Mild hepatic steatosis. Otherwise unremarkable abdominal ultrasound. 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 Assessment & Plan Assessment & Plan (1) control counseling: Code(s): Z30.09 - Encounter for other general counseling and advice on contraception Category: Medical (2) Cervical cancer screening: Comment: 01/19/2024 Pap is negative. Code(s): Z12.4 - Encounter for screening for malignant neoplasm of cervix Category: Medical (3) Abnormal uterine bleeding (AUB): Code(s): N93.9 - Abnormal uterine and vaginal bleeding, unspecified Category: Medical (4) Adnexal cyst: Code(s): N94.9 - Unspecified condition associated with female genital organs and menstrual cycle Category: Medical Plan Patient is here because she has had a confusing constellation of events and symptoms in the last couple of months she is currently not sexually active last time was sometime in December or maybe before she was getting regular periods, she had a period that was normal in January on February 05 lasted till the and appeared that was normal on March 11 2 the 15 of March on March 12 she had really severe pain in her abdomen and she went to the emergency room and they did not evaluation. Also around this time she had had an injury to her back and she had been seeing a chiropractor and they did an MRI on April 20 that showed a 3.6 cm left adnexal mass that could be a cyst. In March on 04/09/2024 she had had a pelvic ultrasound done to evaluate pain as well she was bleeding at that time she also had a urinary culture done that was partly contaminated but also showed group B strep they started her on 1 antibiotic in her primary changed it to a different antibiotic her bleeding that is started on April 01 is just ending now on April 27, I reviewed the patient's ultrasound with her the urinalysis results with her as well as the urine culture results and they MRI results. Plan made that I am going to order a follow-up ultrasound but the cyst may have already gone away if it was there and there may not be any evidence of it anymore but it may have been responsible for the abnormal bleeding in addition she did get a steroid injection in her back in February around March 07 so that maybe a confounding factor in this as well. Reviewed the results in the patient's phone with her and then reviewed ultrasounds that were in patient's chart.. Also reviewed the MRI results she had in her phone with her that is where this adnexal cyst was shown. Reviewed how this could have something to do with her bleeding as above. It also may have nothing to do with it. It may have resolved at this time. I am ordering a pelvic ultrasound to reassess and we will have a follow-up visit afterwards. I asked her to keep track of her menses as she has been doing Additionally I highly recommend she go to [facility] and sign for records of her past medical issues and then go over the allergy section with her primary care provider and see what she is actually allergic to it may or may not be copper it maybe another kind of metal and it she would be more properly documented.(it was from when she needed surgery in her chest as a child and they did allergy testing to figure out which type of metal they could use ). pelvic u/s f/u after the us/ and prn Coding Level of Care Code Est Pt Level 3 (17217) Diagnoses control counseling Z30.09 Cervical cancer screening Z12.4 Abnormal uterine bleeding (AUB) N93.9 Adnexal cyst N94.9 Time Spent (min) 45 Comment 90% to review patient's symptoms, testing and confluence of symptoms and making plan.
--- OUTSIDE RECORDS SUMMARY | 2024-04-27 15:24 | XMS_ITS | Encounter Summary ---
Author Organization [facility] Address [address] [place] [address] Phone Care Team Providers Care Birth Certificate Clerk Name Role Phone Jamal Hernandez MD Primary Care Provider [phone] Encounter Details Date Type Department Care Team (Late st Contact Info) Description 06/27/2016 Documentation [facility] [place] [address] [place], [place] [phone] Family Medicine, Physician [address] [place] [address] Social History Tobacco Use Types Packs/Day Years Used Date Smoking Tobacco: Never Comments:Never smoker Comments Unknown Sex and Gender Information Value Date Recorded Sex Assigned at Not on file Legal Sex Female 5:10 PM EDT Gender Identity Not on file Sexual Orientation Not on file documented as of this encounter Plan of Treatment Not on file documented as of this encounter Visit Diagnoses Not on filedocumented in this encounter Care Teams Birth Certificate Clerk Relationship Specialty Start Date End Date Jamal Hernandez MD [address] [place] [address] [place] [address] PCP - General 10/25/16 06/23/22 documented as of this encounter
--- OUTSIDE RECORDS SUMMARY | 2024-04-27 15:24 | XMS_ITS | Encounter Summary ---
Author Organization [facility] Address [address] [place] [address] Phone Care Team Providers Care Member Of Parliament Name Role Phone Jamal Hernandez MD Primary Care Provider [phone] Encounter Details Date Type Department Care Team (Late st Contact Info) Description 09/20/2016 Documentation [facility] [place] Family Medicine [address] [place], [place] [id number] Family Medicine, Physician [address] [place] [address] Social History Tobacco Use Types Packs/Day Years [...] on filedocumented in this encounter Care Teams Member Of Parliament Relationship Specialty Start Date End Date Jamal Hernandez MD [address] [place] [address] [place] [address] PCP - General 10/25/16 06/23/22 documented as of this encounter
--- OUTSIDE RECORDS SUMMARY | 2024-04-27 15:24 | XMS_ITS | Encounter Summary ---
Author Organization [facility] Address [address] [place], [place] [id number] Phone Care Team Providers Care Secretary Name Role Phone Jamal Hernandez MD Primary Care Provider [phone] Encounter Details Date Type Department Care Team (Late st Contact Info) Description 10/31/2016 Conversion Encounter [facility] [place] [address] [place] [address] Social History Tobacco Use Types Packs/Day Years [...] on filedocumented in this encounter Care Teams Secretary Relationship Specialty Start Date End Date Jamal Hernandez MD [address] [place] [address] PCP - General 10/25/16 06/23/22 documented as of this encounter
--- OUTSIDE RECORDS SUMMARY | 2024-04-27 15:24 | XMS_ITS | Encounter Summary ---
Author Organization [facility] Address [address] [place] [address] Phone Care Team Providers Care Playground Monitor Name Role Phone Jamal Hernandez MD Primary Care Provider [phone] Encounter Details Date Type Department Care Team (Late st Contact Info) Description 09/02/2014 Documentation [facility] [place] Family Medicine [address] [place] [address] Family Medicine, Physician [address] [place], [place] 862161 Social History Tobacco Use Types Packs/Day Years Used Date Smoking Tobacco: Never Assessed Comments Unknown Sex and Gender Information Value Date Recorded Sex Assigned at Not on file Legal Sex Female 5:10 PM EDT Gender Identity Not on file Sexual Orientation Not on file documented as of this encounter Plan of Treatment Not on file documented as of this encounter Visit Diagnoses Not on filedocumented in this encounter Care Teams Playground Monitor Relationship Specialty Start Date End Date Jamal Hernandez MD [address] [place] [address] [place] [address] PCP - General 10/25/16 06/23/22 documented as of this encounter
--- OUTSIDE RECORDS SUMMARY | 2024-04-27 15:24 | XMS_ITS | Encounter Summary ---
Author Organization [facility] Address [address] [place] [address] Phone Care Team Providers Care Sandstone Inspector Repairer Name Role Phone Jamal Hernandez MD Primary Care Provider [phone] Encounter Details Date Type Department Care Team (Late st Contact Info) Description 08/29/2016 Documentation [facility] [place] [address] [place], [place] [id number] Family Medicine, Physician [address] [place] [address] Social History Tobacco Use Types Packs/Day Years [...] on filedocumented in this encounter Care Teams Sandstone Inspector Repairer Relationship Specialty Start Date End Date Jamal Hernandez MD [address] [place] [address] [place] [address] PCP - General 10/25/16 06/23/22 documented as of this encounter
--- OUTSIDE RECORDS SUMMARY | 2024-04-27 15:24 | XMS_ITS | Encounter Summary ---
Author Organization [facility] Address [address] [place] [address] Phone Care Team Providers Care Prosthetic Technician Name Role Phone Jamal Hernandez MD Primary Care Provider [phone] Encounter Details Date Type Department Care Team (Late st Contact Info) Description 07/12/2016 Documentation [facility] [place] [address] [place], [place] [id number] Family Medicine, Physician [address] [place] [address] Social History Tobacco Use Types Packs/Day Years [...] on filedocumented in this encounter Care Teams Prosthetic Technician Relationship Specialty Start Date End Date Jamal Hernandez MD [address] [place] [address] [place] [address] PCP - General 10/25/16 06/23/22 documented as of this encounter
--- OUTSIDE RECORDS SUMMARY | 2024-04-27 15:24 | XMS_ITS | Encounter Summary ---
Author Organization [facility] Address [address] [place] [address] Phone Care Team Providers Care Department Secretary Name Role Phone Jamal Hernandez MD Primary Care Provider [phone] Encounter Details Date Type Department Care Team (Late st Contact Info) Description 08/14/2016 Documentation [facility] [place] [address] [place], [place] [phone] Family Medicine, Physician [address] [place] [address] Social History Tobacco Use Types Packs/Day Years [...] on filedocumented in this encounter Care Teams Department Secretary Relationship Specialty Start Date End Date Jamal Hernandez MD [address] [place] [address] [place] [address] PCP - General 10/25/16 06/23/22 documented as of this encounter
--- OUTSIDE RECORDS SUMMARY | 2024-04-27 15:24 | XMS_ITS | Encounter Summary ---
Author Organization [facility] Address [address] [place] [address] Phone Care Team Providers Care Pot Press Operator Name Role Phone Jamal Hernandez MD Primary Care Provider [phone] Encounter Details Date Type Department Care Team (Late st Contact Info) Description 10/03/2016 Documentation [facility] [place] Family Medicine [address] [place], [place] [phone] Family Medicine, Physician [address] [place] [address] Social History Tobacco Use Types Packs/Day Years [...] on filedocumented in this encounter Care Teams Pot Press Operator Relationship Specialty Start Date End Date Jamal Hernandez MD [address] [place] [address] [place] [address] PCP - General 10/25/16 06/23/22 documented as of this encounter
--- OUTSIDE RECORDS SUMMARY | 2024-04-27 15:24 | XMS_ITS | Encounter Summary ---
Author Organization [facility] Address [address] [place] [address] Phone Care Team Providers Care Branch Retail Executive Name Role Phone Jamal Hernandez MD Primary Care Provider [phone] Encounter Details Date Type Department Care Team (Late st Contact Info) Description 08/29/2016 Documentation [facility] [place] [address] [place], [place] [phone] Family Medicine, Physician [address] [place] [address] Social History Tobacco Use Types Packs/Day Years [...] on filedocumented in this encounter Care Teams Branch Retail Executive Relationship Specialty Start Date End Date Jamal Hernandez MD [address] [place] [address] [place] [address] PCP - General 10/25/16 06/23/22 documented as of this encounter
--- OUTSIDE RECORDS SUMMARY | 2024-04-27 15:24 | XMS_ITS | Encounter Summary ---
Author Organization [facility] Address [address] [place] [address] Phone Care Team Providers Care Stock Checker Name Role Phone Jamal Hernandez MD Primary Care Provider [phone] Encounter Details Date Type Department Care Team (Late st Contact Info) Description 08/29/2016 Documentation [facility] [place] Family Medicine [address] [place], [place] 92100[address] Family Medicine, Physician [address] [place] [address] Social History Tobacco Use Types Packs/Day Years [...] on filedocumented in this encounter Care Teams Stock Checker Relationship Specialty Start Date End Date Jamal Hernandez MD [address] [place] [address] [place] [address] PCP - General 10/25/16 06/23/22 documented as of this encounter
--- OUTSIDE RECORDS SUMMARY | 2024-04-27 15:24 | XMS_ITS | Encounter Summary ---
Author Organization [facility] Address [address] [place] [address] Phone Care Team Providers Care Finish Inspector Name Role Phone Jamal Hernandez MD Primary Care Provider [phone] Encounter Details Date Type Department Care Team (Late st Contact Info) Description 07/24/2016 Documentation [facility] [place] Family Medicine [address] [place], [place] [phone] Family Medicine, Physician [address] [place] [address] Social History Tobacco Use Types Packs/Day Years [...] on filedocumented in this encounter Care Teams Finish Inspector Relationship Specialty Start Date End Date Jamal Hernandez MD [address] [place] [address] [place] [address] PCP - General 10/25/16 06/23/22 documented as of this encounter
--- OUTSIDE RECORDS SUMMARY | 2024-04-27 15:24 | XMS_ITS | Encounter Summary ---
Author Organization [facility] Address [address] [place] [address] Phone Care Team Providers Care Resaw Machine Operator Name Role Phone Jamal Hernandez MD Primary Care Provider [phone] Encounter Details Date Type Department Care Team (Late st Contact Info) Description 08/29/2016 Documentation [facility] [place] [address] [place], [place] [address] Family Medicine, Physician [address] [place] [address] Social History Tobacco Use Types Packs/Day Years [...] on filedocumented in this encounter Care Teams Resaw Machine Operator Relationship Specialty Start Date End Date Jamal Hernandez MD [address] [place] [address] [place] [address] PCP - General 10/25/16 06/23/22 documented as of this encounter
--- OUTSIDE RECORDS SUMMARY | 2024-04-27 15:24 | XMS_ITS | Encounter Summary ---
Author Organization [facility] Address [address] [place] [address] Phone Care Team Providers Care International First Officer Name Role Phone Jamal Hernandez MD Primary Care Provider [phone] Encounter Details Date Type Department Care Team (Late st Contact Info) Description 08/29/2016 Documentation [facility] [place] Family Medicine [address] [place], [place] [phone] Family Medicine, Physician [address] [place] [address] Social History Tobacco Use Types Packs/Day Years [...] on filedocumented in this encounter Care Teams International First Officer Relationship Specialty Start Date End Date Jamal Hernandez MD [address] [place] [address] [place] [address] PCP - General 10/25/16 06/23/22 documented as of this encounter
--- OUTSIDE RECORDS SUMMARY | 2024-04-27 15:24 | XMS_ITS | Encounter Summary ---
Author Organization [facility] Address [address] [place] [address] Phone Care Team Providers Care Dress Marker Name Role Phone Jamal Hernandez MD Primary Care Provider [phone] Encounter Details Date Type Department Care Team (Late st Contact Info) Description 07/29/2016 Documentation [facility] [place] [address] [place], [place] [phone] Family Medicine, Physician [address] [place] [address] Social History Tobacco Use Types Packs/Day Years [...] on filedocumented in this encounter Care Teams Dress Marker Relationship Specialty Start Date End Date Jamal Hernandez MD [address] [place] [address] [place] [address] PCP - General 10/25/16 06/23/22 documented as of this encounter
--- OUTSIDE RECORDS SUMMARY | 2024-04-27 15:24 | XMS_ITS | Encounter Summary ---
Author Organization [facility] Address [address] [place] [address] Phone Care Team Providers Care Server Service Assistant Name Role Phone Jamal Hernandez MD Primary Care Provider [phone] Encounter Details Date Type Department Care Team (Late st Contact Info) Description 07/22/2016 Documentation [facility] [place] Family Medicine [address] [place], [place] 1408893 Family Medicine, Physician [address] [place] [address] Social History Tobacco Use Types Packs/Day Years [...] on filedocumented in this encounter Care Teams Server Service Assistant Relationship Specialty Start Date End Date Jamal Hernandez MD [address] [place] [address] [place] [address] PCP - General 10/25/16 06/23/22 documented as of this encounter
--- OUTSIDE RECORDS SUMMARY | 2024-04-27 15:24 | XMS_ITS | Encounter Summary ---
Author Organization [facility] Address [address] [place] [address] Phone Care Team Providers Care Electric Meter Tester Shop Name Role Phone Jamal Hernandez MD Primary Care Provider [phone] Encounter Details Date Type Department Care Team (Late st Contact Info) Description 07/12/2016 Documentation [facility] [place] [address] [place], [place] 447[address] Family Medicine, Physician [address] [place] [address] Social History Tobacco Use Types Packs/Day Years [...] on filedocumented in this encounter Care Teams Electric Meter Tester Shop Relationship Specialty Start Date End Date Jamal Hernandez MD [address] [place] [address] [place] [address] PCP - General 10/25/16 06/23/22 documented as of this encounter
--- OUTSIDE RECORDS SUMMARY | 2024-04-27 15:25 | XMS_ITS | Encounter Summary ---
Author Organization [facility] Address [address] [place] [address] Phone Care Team Providers Care Service Desk Associate Name Role Phone Jamal Hernandez MD Primary Care Provider [phone] Encounter Details Date Type Department Care Team (Late st Contact Info) Description 04/15/2016 Documentation [facility] [place] [address] [place], [place] [phone] Family Medicine, Physician [address] [place] [address] Social History Tobacco Use Types Packs/Day Years [...] on filedocumented in this encounter Care Teams Service Desk Associate Relationship Specialty Start Date End Date Jamal Hernandez MD [address] [place] [address] [place] [address] PCP - General 10/25/16 06/23/22 documented as of this encounter
--- OUTSIDE RECORDS SUMMARY | 2024-04-27 15:25 | XMS_ITS | Encounter Summary ---
Author Organization [facility] Address [address] [place] [address] Phone Care Team Providers Care Court Officer Name Role Phone Jamal Hernandez MD Primary Care Provider [phone] Encounter Details Date Type Department Care Team (Late st Contact Info) Description 06/06/2016 Documentation [facility] [place] [address] [place], [place] 6638[address] Family Medicine, Physician [address] [place] [address] Social History Tobacco Use Types Packs/Day Years [...] on filedocumented in this encounter Care Teams Court Officer Relationship Specialty Start Date End Date Jamal Hernandez MD [address] [place] [address] [place] [address] PCP - General 10/25/16 06/23/22 documented as of this encounter
--- OUTSIDE RECORDS SUMMARY | 2024-04-27 15:25 | XMS_ITS | Encounter Summary ---
Author Organization [facility] Address [address] [place] [address] Phone Care Team Providers Care Baggage Porter Name Role Phone Jamal Hernandez MD Primary Care Provider [phone] Encounter Details Date Type Department Care Team (Late st Contact Info) Description 05/21/2016 Documentation [facility] [place] [address] [place], [place] 6[address] Family Medicine, Physician [address] [place] [address] Social History Tobacco Use Types Packs/Day Years [...] on filedocumented in this encounter Care Teams Baggage Porter Relationship Specialty Start Date End Date Jamal Hernandez MD [address] [place] [address] [place] [address] PCP - General 10/25/16 06/23/22 documented as of this encounter
--- OUTSIDE RECORDS SUMMARY | 2024-04-27 15:25 | XMS_ITS | Encounter Summary ---
Author Organization [facility] Address [address] [place] [address] Phone Care Team Providers Care Financial Sales Associate Name Role Phone Jamal Hernandez MD Primary Care Provider [phone] Encounter Details Date Type Department Care Team (Late st Contact Info) Description 06/06/2016 Documentation [facility] [place] [address] [place], [place] 6957[address] Family Medicine, Physician [address] [place] [address] Social History Tobacco Use Types Packs/Day Years [...] on filedocumented in this encounter Care Teams Financial Sales Associate Relationship Specialty Start Date End Date Jamal Hernandez MD [address] [place] [address] [place] [address] PCP - General 10/25/16 06/23/22 documented as of this encounter
--- OUTSIDE RECORDS SUMMARY | 2024-04-27 15:25 | XMS_ITS | Clinical Summary ---
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 Pectus excavatum 02/28/2016 Immunizations Immunization Administration Dates Next Due DTaP 5 12/30/2003, 3,04/07/2001,08/14,1999 HPV, Quadrivalent 01/14/2013,02/17/2012,11/26/19 12 Hep A, ped/adol 02/23/2015,02/22/2014 Hep B, ped/adol 04/14/2000,02/12/2000,1999 Hib (PRP-T) 04/07/2001, 1,02/12/2000,12/10 IPV 12/30/2003, 1,02/12/2000,12/10 Influenza, injectable, MDCK, preservative free, quadrivalent 02/28/2016 Influenza, injectable, quadr ivalent, preservative free 11/19/2016 Influenza, injectable, trivalent 11/22/2008 Influenza, intranasal, quadrivalent 02/23/2015,1 04/25/2013,01/14/2013 Influenza, intranasal, trivalent 11/26/2011,11/15 MMR 12/30/2003,12/23/2000 Meningococcal Conj (Menactra) MCV4P 02/28/2016,0 11/26/2011 Tdap 11/26/2011 Varicella 11/30/2009,12/23/2000 Family History Medical History Relation Name Comments Other Brother 1 delfina No Known Problems Father gatito Migraines Mother lane Breast cancer Mother's Sister Diabetes Paternal Grandfather Hyperlipidemia Paternal Grandfather Diabetes Paternal Grandmother Hypertension Paternal Grandmother Relation Name Status Comments Brother 1 delfina Alive pectus excavatu m Brother 2 diana Alive pectus excavatu m Father gatito Alive Father: Alive a nd well Mother lane Alive Mother: Migrain es Mother's Sister Other Family history of Elevated cholesterol, Family history of Hyperlipidemia, Family history of Diabetes mellitus Paternal Grandfather Paterna l grandfather: Diabetes mellitus, Elevated cholesterol Paternal Grandmother Paterna l grandmother: Diabetes mellitus, Hypertension Social History Tobacco Use Types Packs/Day Years Used Date Smoking Tobacco: Never Smokeless Tobacco: Never Comments:Never smoker Alcohol Use Standard Drinks/Week Comments No 0 (1 standard drink = 0.6 oz pur e alcohol) Comments No Sex and Gender Information Value Date Recorded Sex Assigned at Not on file Legal Sex Female 5:10 PM EDT Gender Identity Not on file Sexual Orientation Not on file Last Filed Vital Signs Vital Sign Reading Time Taken Comments Blood Pressure 111/72 10/08/2018 4:08 PM EDT Pulse 88 10/08/2018 4:08 PM EDT Temperature 37.3 ??C (99.1 ??F) 10/08/2018 4:08 PM ED T Respiratory Rate - - Oxygen Saturation - - Inhaled Oxygen Concentration - - Weight 44.4 kg (97 lb 12.8 oz) 10/08/2018 4:08 P M EDT Height 156.8 cm (5' 1.75 ) 10/08/2018 4:08 PM ED T Body Mass Index 18.03 10/08/2018 4:08 PM EDT Plan of Treatment Health Maintenance Due Date Last Done Comments DTaP,Tdap,and Td Vaccines (7 - Td or Tdap) 11/25/2021 11/26/2011, 12/30/2003, 10/08/2002, Additional history exists Influenza Vaccines (#1) 2023 11/20/19 17, 02/28/2016, 02/23/2015, Additional history exists COVID-19 Vaccine ( season) 2023 12/20/2020, 11/29/2020 Hepatitis B Vaccines Completed 04/14/2000, 02/12/2000, 1999 HIB Vaccines Completed 04/07/2001, 03/18, 02/12/2000, Additional history exists IPV Vaccines Completed 12/30/2003, 03/18, 02/12/2000, Additional history exists MMR Vaccines Completed 12/30/2003, 12/23/2000 Varicella Vaccines Completed 11/30/2009, 12/23/2000 HPV Vaccines Completed 01/14/2013, 05/2011, 11/26/2011 Hepatitis A Vaccines Completed 02/23/2015, 02/23/20 14 Meningococcal Vaccine Completed 02/28/2016, 012 Men B Vaccine Aged Out No longer elig ible based on patient's age to complete this topic Pneumococcal Vaccine Aged Out No long er eligible based on patient's age to complete this topic Procedures * Due to [place] [employer] law, this organization might not be sharing sensitive test results. Procedure Name Priority Date/Time Associated Diagnosis Comments CHLAMYDIA AND GONORRHEA, AMPLIFIED Routine 10/08/2018 4:28 PM EDT Generalized abdominal pain from Last 3 Months or Most Recently Relevant to Health Maintenance Results * Due to [place] [employer] law, this organization might not be sharing sensitive test results. * Chlamydia and Gonorrhoea, Amplified (10/08/2018 4:28 PM EDT) Chlamydia Trachomatis, DNA Probe NEGATIVE (NEG) [facility] Comment: No Chlamydia Trachomatis RNA detected in this patient's sample ? (REFERENCE RANGE/NORMAL VALUE: NOT DETECTED) ? Note: This test uses automatic grinding machine operator- mediated amplification method to detect rRNA from C. Trachomatis URINE GC AMP PROBE NEGATIVE (NEG) [facility] Comment: No Neisseria Gonorrhoeae RNA detected in this patient's sample ? (REFERENCE RANGE/NORMAL VALUE: NOT DETECTED) ? NOTE: This test uses automatic grinding machine operator-mediated amplification method to detect rRNA from N.Gonorrhoeae. A negative result does not preclude infection. In the case of a negative urine result, testing of an endocervical(female) or urethral (male) specimen is recommended if there is high clinical suspicion of infection. Due to very high sensitivity of Nucleic Acid Amplification Test, false positive results may occur. Therefore, specimen handling is extremely important. In patients in whom the disease is unlikely, additional sample for testing should be considered after an initial positive result. The performance characteristics of this test have not been evaluated in children. The Aptima Combo2 assay is not intended for the evaluation of suspected sexual abuse or for other medico-legal indications. The ordering provider should assess if the patient had consensual sex without risk of sexual abuse. Consult the [facility] if needed. Contact phone number . Therapeutic failure or success cannot be determined with the Aptima Combo2 assay since nucleic acid may persist following appropriate antimicrobial therapy. The Centers for Disease Control and Prevention (CDC) recommends confirmatory retesting using culture or a different nucleic acid amplification test when positive results occur, if indicated. Testing performed or reported by [facility], a Service of [facility], [address] [place] [address] 10/08/2018 4:28 PM EDT 10/08/2018 9:45 PM EDT us Nikki Paredes MD LAB MICROBIOLOGY - GENERAL ORDER BENIGNO Final Result [facility] from Last 3 Months or Most Recently Relevant to Health Maintenance Insurance [facility] NON PCC [facility] PPO
--- OUTSIDE RECORDS SUMMARY | 2024-04-27 15:25 | XMS_ITS | Encounter Summary ---
Author Organization [facility] Address [address] [place] [address] Phone Care Team Providers Care Lockstitch Waistline Joiner Name Role Phone Jamal Hernandez MD Primary Care Provider [phone] Encounter Details Date Type Department Care Team (Late st Contact Info) Description 06/06/2016 Documentation [facility] [place] [address] [place], [place] [phone] Family Medicine, Physician [address] [place] [address] Social History Tobacco Use Types Packs/Day Years [...] on filedocumented in this encounter Care Teams Lockstitch Waistline Joiner Relationship Specialty Start Date End Date Jamal Hernandez MD [address] [place] [address] [place] [address] PCP - General 10/25/16 06/23/22 documented as of this encounter
--- OUTSIDE RECORDS SUMMARY | 2024-04-27 15:25 | XMS_ITS | Encounter Summary ---
Author Organization [facility] Address [address] [place] [address] Phone Care Team Providers Care Litigation Paralegal Name Role Phone Jamal Hernandez MD Primary Care Provider [phone] Encounter Details Date Type Department Care Team (Late st Contact Info) Description 05/21/2016 Documentation [facility] [place] [address] [place], [place] [phone] Family Medicine, Physician [address] [place] [address] Social History Tobacco Use Types Packs/Day Years [...] on filedocumented in this encounter Care Teams Litigation Paralegal Relationship Specialty Start Date End Date Jamal Hernandez MD [address] [place] [address] [place] [address] PCP - General 10/25/16 06/23/22 documented as of this encounter
--- OUTSIDE RECORDS SUMMARY | 2024-04-27 15:25 | XMS_ITS | Encounter Summary ---
Author Organization [facility] Address [address] [place] [address] Phone Care Team Providers Care Teaching Dietitian Name Role Phone Jamal Hernandez MD Primary Care Provider [phone] Encounter Details Date Type Department Care Team (Late st Contact Info) Description 07/12/2016 Documentation [facility] [place] [address] [place], [place] [phone] Family Medicine, Physician [address] [place] [address] Social History Tobacco Use Types Packs/Day Years [...] on filedocumented in this encounter Care Teams Teaching Dietitian Relationship Specialty Start Date End Date Jamal Hernandez MD [address] [place] [address] DoyleHAYDE [address] PCP - General 10/25/16 06/23/22 documented as of this encounter
== END 2024-04-27 16:09 | disposition home or self-care (01) ==
LOC: HO.HWSM 14:31
PROVIDERS: PCP Physician Assistant; Visit Provider Advanced Practice Midwife
DX: N93.9 Abnormal uterine and vaginal bleeding, unspecified (principal); N94.9 Unspecified condition associated with female genital organs and menstrual cycle; Z30.09 Encounter for other general counseling and advice on contraception
CPT/HCPCS: 99213

== ENCOUNTER 2024-04-27 14:31 | Outpatient (REF) | payer OTHER, SELFPAY ==
--- OUTSIDE RECORDS SUMMARY | 2024-04-27 16:23 | XMS_ITS | Encounter Summary ---
Author Organization [facility] Address [address] [place] [address] Phone Care Team Providers Care Entry Examiner Name Role Phone Jamal Hernandez MD Primary Care Provider [phone] Encounter Details Date Type Department Care Team (Late st Contact Info) Description 07/12/2016 Documentation [facility] [place] [address] [place], [place] [id number] Family Medicine, Physician [address] [place] [address] Social History Tobacco Use Types Packs/Day Years [...] on filedocumented in this encounter Care Teams Entry Examiner Relationship Specialty Start Date End Date Jamal Hernandez MD [address] [place] [address] Lindsay[place]AYDE [address] PCP - General 10/25/16 06/23/22 documented as of this encounter
--- OUTSIDE RECORDS SUMMARY | 2024-04-27 16:23 | XMS_ITS | Encounter Summary ---
Author Organization [facility] Address [address] [place] [address] Phone Care Team Providers Care Livestock Yard Attendant Name Role Phone Jamal Hernandez MD Primary Care Provider [phone] Encounter Details Date Type Department Care Team (Late st Contact Info) Description 07/29/2016 [place] [facility] [place] [address] [place], [place] [phone] Family Medicine, Physician [address] [place] [address] Social History Tobacco Use Types Packs/Day Years [...] on filedocumented in this encounter Care Teams Livestock Yard Attendant Relationship Specialty Start Date End Date Jamal Hernandez MD [address] [place] [address] [place]ouch[place] [address] PCP - General 10/25/16 06/23/22 documented as of this encounter
--- OUTSIDE RECORDS SUMMARY | 2024-04-27 16:23 | XMS_ITS | Encounter Summary ---
Author Organization [facility] Address [address] [place] [address] Phone Care Team Providers Care Master Rigger Name Role Phone Jamal Hernandez MD Primary Care Provider [phone] Encounter Details Date Type Department Care Team (Late st Contact Info) Description 06/27/2016 Documentation [facility] [place] [address] [place], [place] [phone] Family Medicine, Physician [address] [place] [address] Social History Tobacco Use Types Packs/Day Years [...] on filedocumented in this encounter Care Teams Master Rigger Relationship Specialty Start Date End Date Jamal Hernandez MD [address] [place] [address] [place] [address] PCP - General 10/25/16 06/23/22 documented as of this encounter
--- OUTSIDE RECORDS SUMMARY | 2024-04-27 16:23 | XMS_ITS | Encounter Summary ---
Author Organization [facility] Address [address] [place] [address] Phone Care Team Providers Care Booth Operator Name Role Phone Jamal Hernandez MD Primary Care Provider [phone] Encounter Details Date Type Department Care Team (Late st Contact Info) Description 04/15/2016 Documentation [facility] [place] [address] [place], [place] [phone] Family Medicine, Physician [address] [place] [address] Social History Tobacco Use Types Packs/Day Years [...] on filedocumented in this encounter Care Teams Booth Operator Relationship Specialty Start Date End Date Jamal Hernandez MD [address] [place] [address] [place] [address] PCP - General 10/25/16 06/23/22 documented as of this encounter
--- OUTSIDE RECORDS SUMMARY | 2024-04-27 16:23 | XMS_ITS | Encounter Summary ---
Author Organization [facility] Address [address] [place] [address] Phone Care Team Providers Care Cna Hha Name Role Phone Jamal Hernandez MD Primary Care Provider [phone] Encounter Details Date Type Department Care Team (Late st Contact Info) Description 08/29/2016 Documentation [facility] [place] [address] [place], [place] [phone] Family Medicine, Physician [address] [place] [address] Social History Tobacco Use Types Packs/Day Years [...] on filedocumented in this encounter Care Teams Cna Hha Relationship Specialty Start Date End Date Jamal Hernandez MD [address] [place] [address] [place] [address] PCP - General 10/25/16 06/23/22 documented as of this encounter
--- OUTSIDE RECORDS SUMMARY | 2024-04-27 16:23 | XMS_ITS | Encounter Summary ---
Author Organization [facility] Address [address] [place] [address] Phone Care Team Providers Care Newscast Director Name Role Phone Jamal Hernandez MD Primary Care Provider [phone] Encounter Details Date Type Department Care Team (Late st Contact Info) Description 09/20/2016 Documentation [facility] [place] [address] [place], [place] [phone] Family Medicine, Physician [address] [place] [address] Social History Tobacco Use Types Packs/Day Years [...] on filedocumented in this encounter Care Teams Newscast Director Relationship Specialty Start Date End Date Jamal Hernandez MD [address] [place] [address] [place] [address] PCP - General 10/25/16 06/23/22 documented as of this encounter
--- OUTSIDE RECORDS SUMMARY | 2024-04-27 16:23 | XMS_ITS | Encounter Summary ---
Author Organization [facility] Address [address] [place] [address] Phone Care Team Providers Care Budget Engineer Name Role Phone Jamal Hernandez MD Primary Care Provider [phone] Encounter Details Date Type Department Care Team (Late st Contact Info) Description 06/06/2016 Documentation [facility] [place] [address] [place], [place] [phone] Family Medicine, Physician [address] [place] [address] Social History Tobacco Use Types Packs/Day Years [...] on filedocumented in this encounter Care Teams Budget Engineer Relationship Specialty Start Date End Date Jamal Hernandez MD [address] [place] [address] [place] [address] PCP - General 10/25/16 06/23/22 documented as of this encounter
--- OUTSIDE RECORDS SUMMARY | 2024-04-27 16:23 | XMS_ITS | Encounter Summary ---
Author Organization [facility] Address [address] [place] [address] Phone Care Team Providers Care Presiding Steward Name Role Phone Jamal Hernandez MD Primary Care Provider [phone] Encounter Details Date Type Department Care Team (Late st Contact Info) Description 09/02/[address] [facility] [place] [address] [place] [address] Family Medicine, Physician [address] [place], [place] 694651 Social History Tobacco Use Types Packs/Day Years [...] on filedocumented in this encounter Care Teams Presiding Steward Relationship Specialty Start Date End Date Jamal Hernandez MD [address] [place] [address] [place] [address] PCP - General 10/25/16 06/23/22 documented as of this encounter
--- OUTSIDE RECORDS SUMMARY | 2024-04-27 16:23 | XMS_ITS | Encounter Summary ---
Author Organization [facility] Address [address] [place] [address] Phone Care Team Providers Care Slate Roofer Helper Name Role Phone Jamal Hernandez MD Primary Care Provider [phone] Encounter Details Date Type Department Care Team (Late st Contact Info) Description 08/29/2016 Documentation [facility] [place] [address] [place], [place] [phone] Family Medicine, Physician [address] [place] [address] Social History Tobacco Use Types Packs/Day Years [...] on filedocumented in this encounter Care Teams Slate Roofer Helper Relationship Specialty Start Date End Date Jamal Hernandez MD [address] [place] [address] [place] [address] PCP - General 10/25/16 06/23/22 documented as of this encounter
--- OUTSIDE RECORDS SUMMARY | 2024-04-27 16:23 | XMS_ITS | Encounter Summary ---
Author Organization [facility] Address [address] [place] [address] Phone Care Team Providers Care Supervisor Sewer System Name Role Phone Jamal Hernandez MD Primary Care Provider [phone] Encounter Details Date Type Department Care Team (Late st Contact Info) Description 05/21/2016 Documentation [facility] [place] [address] [place], [place] [phone] Family Medicine, Physician [address] [place] [address] Social History Tobacco Use Types Packs/Day Years [...] on filedocumented in this encounter Care Teams Supervisor Sewer System Relationship Specialty Start Date End Date Jamal Hernandez MD [address] [place] [address] [place] [address] PCP - General 10/25/16 06/23/22 documented as of this encounter
--- OUTSIDE RECORDS SUMMARY | 2024-04-27 16:23 | XMS_ITS | Encounter Summary ---
Author Organization [facility] Address [address] [place] [address] Phone Care Team Providers Care Legal Transcriptionist Name Role Phone Jamal Hernandez MD Primary Care Provider [phone] Encounter Details Date Type Department Care Team (Late st Contact Info) Description 06/06/[address] [facility] [place] [address] [place], [place] [phone] Family Medicine, Physician [address] [place] [address] Social History Tobacco Use Types Packs/Day Years [...] on filedocumented in this encounter Care Teams Legal Transcriptionist Relationship Specialty Start Date End Date Jamal Hernandez MD [address] [place] [address] [place] [address] PCP - General 10/25/16 06/23/22 documented as of this encounter
--- OUTSIDE RECORDS SUMMARY | 2024-04-27 16:23 | XMS_ITS | Encounter Summary ---
Author Organization [facility] Address [address] [place] [address] Phone Care Team Providers Care Bindery Chief Name Role Phone Jamal Hernandez MD Primary Care Provider [phone] Encounter Details Date Type Department Care Team (Late st Contact Info) Description 07/12/2016 Documentation [facility] [place] [address] [place], [place] [phone] Family Medicine, Physician [address] [place] [address] Social History Tobacco Use Types Packs/Day Years [...] on filedocumented in this encounter Care Teams Bindery Chief Relationship Specialty Start Date End Date Jamal Hernandez MD [address] [place] [address] [place] [address] PCP - General 10/25/16 06/23/22 documented as of this encounter
--- OUTSIDE RECORDS SUMMARY | 2024-04-27 16:23 | XMS_ITS | Encounter Summary ---
Author Organization [facility] Address [address] [place] [address] Phone Care Team Providers Care Production Control Scheduler Name Role Phone Jamal Hernandez MD Primary Care Provider Encounter Details Date Type Department Care Team (Late st Contact Info) Description 08/29/2016 Documentation [facility] [place] [address] [place], [place] [phone] Family Medicine, Physician [address] [place] [address] Social History Tobacco Use Types Packs/Day Years [...] on filedocumented in this encounter Care Teams Production Control Scheduler Relationship Specialty Start Date End Date Jamal Hernandez MD [address] [place] [address] [place] [address] PCP - General 10/25/16 06/23/22 documented as of this encounter
--- OUTSIDE RECORDS SUMMARY | 2024-04-27 16:23 | XMS_ITS | Encounter Summary ---
Author Organization [facility] Address [address] [place], [place] [phone] Phone Care Team Providers Care Helminthologist Name Role Phone Jamal Hernandez MD Primary Care Provider [phone] Encounter Details Date Type Department Care Team (Late st Contact Info) Description 10/31/2016 Conversion Encounter [facility] [place] [address] [place] [address] Social History Tobacco Use Types Packs/Day Years [...] on filedocumented in this encounter Care Teams Helminthologist Relationship Specialty Start Date End Date Jamal Hernandez MD [address] [place] [address] PCP - General 10/25/16 06/23/22 documented as of this encounter
--- OUTSIDE RECORDS SUMMARY | 2024-04-27 16:23 | XMS_ITS | Encounter Summary ---
Author Organization [facility] Address [address] [place] [address] Phone Care Team Providers Care Retail Greeter Name Role Phone Jamal Hernandez MD Primary Care Provider Encounter Details Date Type Department Care Team (Late st Contact Info) Description 08/29/2016 Documentation [facility] [place] [address] [place], [place] [phone] Family Medicine, Physician [address] [place] [address] Social History Tobacco Use Types Packs/Day Years [...] on filedocumented in this encounter Care Teams Retail Greeter Relationship Specialty Start Date End Date Jamal Hernandez MD [address] [place] [address] [place] Campbell[place]AY[place] [address] PCP - General 10/25/16 06/23/22 documented as of this encounter
--- OUTSIDE RECORDS SUMMARY | 2024-04-27 16:23 | XMS_ITS | Encounter Summary ---
Author Organization [facility] Address [address] [place] [address] Phone Care Team Providers Care Mental Health Worker Name Role Phone Jamal Hernandez MD Primary Care Provider [phone] Encounter Details Date Type Department Care Team (Late st Contact Info) Description 06/06/2016 Documentation [facility] [place] [address] [place], [place] [phone] Family Medicine, Physician [address] [place] [address] Social History Tobacco Use Types Packs/Day Years [...] on filedocumented in this encounter Care Teams Mental Health Worker Relationship Specialty Start Date End Date Jamal Hernandez MD [address] [place] [address] [place] [address] PCP - General 10/25/16 06/23/22 documented as of this encounter
--- OUTSIDE RECORDS SUMMARY | 2024-04-27 16:23 | XMS_ITS | Encounter Summary ---
Author Organization [facility] Address [address] [place] [address] Phone Care Team Providers Care Soaking Pit Operator Name Role Phone Jamal Hernandez MD Primary Care Provider [phone] Encounter Details Date Type Department Care Team (Late st Contact Info) Description 08/29/2016 Documentation [facility] [place] [address] [place], [place] [phone] Family Medicine, Physician [address] [place] [address] Social History Tobacco Use Types Packs/Day Years [...] on filedocumented in this encounter Care Teams Soaking Pit Operator Relationship Specialty Start Date End Date Jamal Hernandez MD [address] [place] [address] RoyHAYDE [address] PCP - General 10/25/16 06/23/22 documented as of this encounter
--- OUTSIDE RECORDS SUMMARY | 2024-04-27 16:23 | XMS_ITS | Encounter Summary ---
Author Organization [facility] Address [address] [place] [address] Phone Care Team Providers Care Laborer Cutting Tool Name Role Phone Jamal Hernandez MD Primary Care Provider [phone] Encounter Details Date Type Department Care Team (Late st Contact Info) Description 10/03/[address] [facility] [place] [address] [place], [place] [phone] Family Medicine, Physician [address] [place] [address] Social History Tobacco Use Types Packs/Day Years [...] on filedocumented in this encounter Care Teams Laborer Cutting Tool Relationship Specialty Start Date End Date Jamal Hernandez MD [address] [place] [address] [place] [address] PCP - General 10/25/16 06/23/22 documented as of this encounter
--- OUTSIDE RECORDS SUMMARY | 2024-04-27 16:23 | XMS_ITS | Encounter Summary ---
Author Organization [facility] Address [address] [place] [address] Phone Care Team Providers Care Market Sales Manager Name Role Phone Jmaal Hernandez MD Primary Care Provider Encounter Details Date Type Department Care Team (Late st Contact Info) Description 07/24/2016 Documentation [facility] [place] [address] [place], [place] [phone] Family Medicine, Physician [address] [place] [address] Social History Tobacco Use Types Packs/Day Years [...] on filedocumented in this encounter Care Teams Market Sales Manager Relationship Specialty Start Date End Date Jamal Hernandez MD [address] [place] [address] [place] [address] PCP - General 10/25/16 06/23/22 documented as of this encounter
--- OUTSIDE RECORDS SUMMARY | 2024-04-27 16:23 | XMS_ITS | Clinical Summary ---
Author Organization [facility] Address [address] [place] [address] Phone Care Team Providers Care Campus Executive Director Name Role Phone Unavailable Primary Care Provider [...] this topic Procedures * Due to [place] [employer] law, this organization might not be sharing sensitive test results. Procedure Name Priority Date/Time Associated Diagnosis Comments CHLAMYDIA AND GONORRHEA, AMPLIFIED Routine 10/08/2018 4:28 PM EDT Generalized abdominal pain from Last 3 Months or Most Recently Relevant to Health Maintenance Results * Due to [place] [employer] [place] law, this organization might not be sharing sensitive test results. * Chlamydia and Gonorrhoea, Amplified (10/08/2018 4:28 PM EDT) Chlamydia Trachomatis, DNA Probe NEGATIVE (NEG) [facility] Comment: No Chlamydia Trachomatis RNA detected in this patient's sample ? (REFERENCE RANGE/NORMAL VALUE: NOT DETECTED) ? Note: This test uses surveillance analyst- mediated amplification method to detect rRNA from C. Trachomatis URINE GC AMP PROBE NEGATIVE (NEG) [facility] Comment: No Neisseria Gonorrhoeae RNA detected in this patient's sample ? (REFERENCE RANGE/NORMAL VALUE: NOT DETECTED) ? NOTE: This test uses surveillance analyst-mediated amplification method to detect rRNA from N.Gonorrhoeae. [...] without risk of sexual abuse. Consult the [facility] if needed. Contact phone number . Therapeutic failure or success cannot be determined with the Aptima Combo2 assay since nucleic acid may persist following appropriate antimicrobial therapy. The Centers for Disease Control and Prevention (CDC) recommends confirmatory retesting using culture or a different nucleic acid amplification test when positive results occur, if indicated. Testing performed or reported by [facility], a Service of [facility], [address] [place] [address] 10/08/2018 4:28 PM EDT 10/08/2018 9:45 PM EDT us Nikki Paredes MD LAB MICROBIOLOGY - GENERAL ORDER BENIGNO Final Result [facility] from Last 3 Months or Most Recently Relevant to Health Maintenance Insurance [facility] NON PCC [facility] PPO
--- OUTSIDE RECORDS SUMMARY | 2024-04-27 16:23 | XMS_ITS | Encounter Summary ---
Author Organization [facility] Address [address] [place] [address] Phone Care Team Providers Care Spud Grader Name Role Phone Jamal Hernandez MD Primary Care Provider Encounter Details Date Type Department Care Team (Late st Contact Info) Description 05/21/2016 Documentation [facility] [place] [address] [place], [place] [phone] Family Medicine, Physician [address] [place] [address] Social History Tobacco Use Types Packs/Day Years [...] on filedocumented in this encounter Care Teams Spud Grader Relationship Specialty Start Date End Date Jamal Hernandez MD [address] [place] [address] [place] [address] PCP - General 10/25/16 06/23/22 documented as of this encounter
--- OUTSIDE RECORDS SUMMARY | 2024-04-27 16:23 | XMS_ITS | Encounter Summary ---
Author Organization [facility] Address [address] [place] [address] Phone Care Team Providers Care Dungeon Master Name Role Phone Jamal Hernandez MD Primary Care Provider [phone] Encounter Details Date Type Department Care Team (Late st Contact Info) Description 08/14/2016 Documentation [facility] [place] [address] [place], [place] [phone] Family Medicine, Physician [address] [place] [address] Social History Tobacco Use Types Packs/Day Years [...] on filedocumented in this encounter Care Teams Dungeon Master Relationship Specialty Start Date End Date Jamal Hernandez MD [address] [place] [address] [place] [address] PCP - General 10/25/16 06/23/22 documented as of this encounter
--- OUTSIDE RECORDS SUMMARY | 2024-04-27 16:23 | XMS_ITS | Encounter Summary ---
Author Organization [facility] Address [address] [place] [address] Phone Care Team Providers Care Socket Welder Helper Name Role Phone Jamal Hernandez MD Primary Care Provider [phone] Encounter Details Date Type Department Care Team (Late st Contact Info) Description 07/12/2016 Documentation [facility] [place] [address] [place], [place] [phone] Family Medicine, Physician [address] [place] [address] Social History Tobacco Use Types Packs/Day Years [...] on filedocumented in this encounter Care Teams Socket Welder Helper Relationship Specialty Start Date End Date Jamal Hernandez MD [address] [place] [address] [place] [address] PCP - General 10/25/16 06/23/22 documented as of this encounter
--- OUTSIDE RECORDS SUMMARY | 2024-04-27 16:23 | XMS_ITS | Encounter Summary ---
Author Organization [facility] Address [address] [place] [address] Phone Care Team Providers Care Planing Machine Operator Name Role Phone Jamal Hernandez MD Primary Care Provider [phone] Encounter Details Date Type Department Care Team (Late st Contact Info) Description 07/22/2016 Documentation [facility] [place] Medicine [address] [place], [place] [phone] Family Medicine, Physician [address] [place] [address] Social History Tobacco Use Types Packs/Day Years [...] on filedocumented in this encounter Care Teams Planing Machine Operator Relationship Specialty Start Date End Date Jamal Hernandez MD [address] [place] [address] [place] [address] PCP - General 10/25/16 06/23/22 documented as of this encounter
[2024-04-27 22:33] LABS: Bacterial Vaginosis PCR POSITIVE (Negative); Candida Group PCR NOT DETECTED (Not Detect); Candida glab krusei PCR NOT DETECTED (Not Detect); Trichomonas vaginalis PCR NOT DETECTED (Not Detect)
[2024-04-28 04:07] LABS: CT PCR NOT DETECTED (Not Detect.); NG PCR NOT DETECTED (Not Detect.)
== END 2024-04-27 14:32 | disposition home or self-care (01) ==
LOC: HO.LAB 14:31
PROVIDERS: PCP Physician Assistant; Visit Provider Advanced Practice Midwife
DX: N93.9 Abnormal uterine and vaginal bleeding, unspecified (principal); N94.9 Unspecified condition associated with female genital organs and menstrual cycle; N89.8 Other specified noninflammatory disorders of vagina; Z20.2 Contact with and (suspected) exposure to infections with a predominantly sexual mode of transmission; Z30.09 Encounter for other general counseling and advice on contraception
CPT/HCPCS: 81515; 87491; 87591; 99212

== ENCOUNTER 2024-05-04 14:28 | Outpatient (AMB) | payer OTHER, SELFPAY ==
--- NOTE | 2024-05-04 13:02 | MHC.PC.OV ---
Intake Visit Reasons: telehealth ( anxiety) Allergies copper Allergy (Unknown, Verified 05/04/24 14:36) Rash adhesive tape Allergy (Verified 05/04/24 14:36) Rash Medication List - Last Reconciled 05/04/24 by Peterson Nair PA-C No Known Home Meds Tobacco use date assessed: 03/30/24 Dental Screening Dental Screen Date: 03/30/24 HPI telehealth ( anxiety) HPI Details Patient is a 23-year-old female being evaluated today via telephone. At last visit we discussed her generalized anxiety disorder was started on sertraline though was only taking it twice. She is not interested really and taking a daily medication as she often feels well. She is interested in trying an as needed medication for her anxious symptoms thus will start hydroxyzine 10 mg p.r.n. for panic disorder. She does report recently getting an MRI of her lower lumbar spine though had noted a cyst in her abdomen. I believe this cyst was an adnexal cyst thus she has followed up her auto care center manager and will be getting an pelvic ultrasound again. Of note she does report having irregular menses. [facility] Medical History SOB (shortness of breath) Collapse of right lung Surgical History History of surgery History of appendectomy Family History Father No problems noted. Mother No problems noted. Brother No problems noted. Social History Housing: Apartment Alcohol intake: current Alcohol intake frequency: holidays/special occasions only Patient Tobacco Use Status: Never used Tobacco e-Cigarette/Vaping Use: Never Used Second Hand Smoke Exposure: No service: No Current occupational status: employed and student Current occupation: [employer] Current occupational exposures/hazards: No Cognitive needs: No Hearing needs: No Vision needs: No Female Reproductive History Menstrual Age of Menarche: 11 Questionnaire Thrive Questionnaire Date Thrive assessed: 03/30/24 CYNDI-7 AMB Questionnaire CYNDI-7 Date CYNDI - 7 assessed: 03/30/24 Source: Developed by Bobby Stocktonet B.W. Cachorro, Ascencion Ayers and colleagues, with an educational nathan from [employer]. Review of Systems Const Denies headache(s) Eyes Denies loss of vision ENT Denies vertigo, Denies dizziness, Denies headache(s) and Denies sore throat Card Denies chest pain, Denies leg edema and Denies lightheadedness Resp Denies cough, Denies hemoptysis and Denies wheezing GI Denies abdominal pain, Denies melena, Denies constipation, Denies diarrhea and Denies vomiting Denies urinary frequency, Denies dysuria and Denies urinary urgency Musc Denies arthralgias, Denies joint swelling, Denies numbness and Denies tingling Neuro Denies behavioral changes, Denies vertigo, Denies dizziness, Denies headache(s), Denies loss of vision, Denies memory loss, Denies numbness and Denies tingling Psych Denies anxiety, Denies behavioral changes, Denies depression, Denies memory loss and Denies panic attacks Rod/Lymph Denies easy bleeding and Denies easy bruising Aller/Immun Denies wheezing Physical exam (Primary Care) Tobacco/Smoking Status: Tobacco use Status Tobacco use date assessed 03/30/24 05/04/24 13:02 Patient Tobacco Use Status Never used Tobacco 05/04/24 13:02 e-Cigarette/Vaping Use Never Used 05/04/24 13:02 Thrive Assessment: Date of Thrive Assessment Date Thrive assessed 03/30/24 05/04/24 13:02 Telehealth Telehealth Telehealth Platform: Telephone Location of provider rendering services: practice address Location of patient: address on file Patient Identification confirmed using: Name, : Yes Telehealth method: voice only Patient verbally consented to treatment: Yes Patient verbally consented to billing insurance company: Yes Patient informed of any privacy concerns related to visit: Yes Minutes spent on Phone/Video with Pt.: 11 Coding Level of Care Code Tele Est Pt Level 3 (80371) Diagnoses CYNDI (generalized anxiety disorder) F41.1 Adnexal cyst N94.9 Assessment & Plan Assessment & Plan (1) CYNDI (generalized anxiety disorder): Code(s): F41.1 - Generalized anxiety disorder Category: Medical Plan: As per HPI patient was not interested in taking a daily medication. She tried sertraline 25 mg for 2 days though did not feel she needed a med to take every day. She is willing to try hydroxyzine 10 mg as needed for anxious symptoms. (2) Adnexal cyst: Code(s): N94.9 - Unspecified condition associated with female genital organs and menstrual cycle Category: Medical Plan: Patient followed by auto care center manager. She was found to have an adnexal cyst on MRI of back. She will be getting a new ultrasound of pelvis. Medications: New hydroxyzine HCl 10 mg PO ONCE PRN 14 tabs 0RF panic attack(s) 14 days F41.1 - Generalized anxiety disorder, F41.9 - Anxiety disorder, unspecified
--- OUTSIDE RECORDS SUMMARY | 2024-05-04 15:28 | XMS_ITS | Clinical Summary ---
Author Organization [facility] Address [address] [place] [address] Phone Care Team Providers Care Motor Vehicle Operator Road Supervisor Name Role Phone Unavailable Primary Care Provider [...] complete this topic Procedures * Due to [place] [email or web address] law, this organization might not be sharing sensitive test results. Procedure Name Priority Date/Time Associated Diagnosis Comments CHLAMYDIA AND GONORRHEA, AMPLIFIED Routine 10/08/2018 4:28 PM EDT Generalized abdominal pain from Last 3 Months or Most Recently Relevant to Health Maintenance Results * Due to [place] [email or web address] law, this organization might not be sharing sensitive test results. * Chlamydia and Gonorrhoea, Amplified (10/08/2018 4:28 PM EDT) Chlamydia Trachomatis, DNA Probe NEGATIVE (NEG) [facility] Comment: No Chlamydia Trachomatis RNA detected in this patient's sample ? (REFERENCE RANGE/NORMAL VALUE: NOT DETECTED) ? Note: This test uses aircraft inspection record clerk- mediated amplification method to detect rRNA from C. Trachomatis URINE GC AMP PROBE NEGATIVE (NEG) [facility] Comment: No Neisseria Gonorrhoeae RNA detected in this patient's sample ? (REFERENCE RANGE/NORMAL VALUE: NOT DETECTED) ? NOTE: This test uses aircraft inspection record clerk-mediated amplification method to detect rRNA from N.Gonorrhoeae. [...] if indicated. Testing performed or reported by [facility], a Service of [facility], [address] [place] [address] 10/08/2018 4:28 PM EDT 10/08/2018 9:45 PM EDT us Nikki Paredes MD LAB MICROBIOLOGY - GENERAL ORDER BENIGNO Final Result [facility] from Last 3 Months or Most Recently Relevant to Health Maintenance Insurance [facility] NON PCC [facility] PPO
--- OUTSIDE RECORDS SUMMARY | 2024-05-04 15:28 | XMS_ITS | Encounter Summary ---
Author Organization [facility] Address [address] [place] [address] Phone Care Team Providers Care Deputy Sheriff Generalist/Bailiff Name Role Phone Jamal Hernandez MD Primary Care Provider [phone] Encounter Details Date Type Department Care Team (Late st Contact Info) Description 06/27/2016 Documentation [facility] [place] [address] [place], [place] [phone] Family Medicine, Physician [address] [place] [address] Social History Tobacco Use Types Packs/Day Years [...] on filedocumented in this encounter Care Teams Deputy Sheriff Generalist/Bailiff Relationship Specialty Start Date End Date Jamal Hernandez MD [address] [place] [address] [place]AY[place] [address] PCP - General 10/25/16 06/23/22 documented as of this encounter
--- OUTSIDE RECORDS SUMMARY | 2024-05-04 15:28 | XMS_ITS | Encounter Summary ---
Author Organization [facility] Address [address] [place] [address] Phone Care Team Providers Care General Accountant Name Role Phone Jamal Hernandez MD Primary Care Provider [phone] Encounter Details Date Type Department Care Team (Late st Contact Info) Description 08/29/2016 Documentation [facility] [place] [address] [place], [place] [phone] Family Medicine, Physician [address] [place] [address] Social History Tobacco Use Types Packs/Day Years [...] on filedocumented in this encounter Care Teams General Accountant Relationship Specialty Start Date End Date Jamal Hernandez MD [address] [place] [address] [place] [address] PCP - General 10/25/16 06/23/22 documented as of this encounter
--- OUTSIDE RECORDS SUMMARY | 2024-05-04 15:28 | XMS_ITS | Encounter Summary ---
Author Organization [facility] Address [address] [place] [address] Phone Care Team Providers Care Rumper Name Role Phone Jamal Hernandez MD Primary Care Provider [phone] Encounter Details Date Type Department Care Team (Late st Contact Info) Description 10/03/2016 Documentation [facility] [place] [address] [place], [place] [phone] Family Medicine, Physician [address] [place] [address] Social History Tobacco Use Types Packs/Day Years [...] on filedocumented in this encounter Care Teams Rumper Relationship Specialty Start Date End Date Jamal Hernandez MD [address] [place] [address] [place] [address] PCP - General 10/25/16 06/23/22 documented as of this encounter
--- OUTSIDE RECORDS SUMMARY | 2024-05-04 15:28 | XMS_ITS | Encounter Summary ---
Author Organization [facility] Address [address] [place] [address] Phone Care Team Providers Care Granite Fabricator Name Role Phone Jamal Hernandez MD Primary Care Provider [phone] Encounter Details Date Type Department Care Team (Late st Contact Info) Description 07/29/2016 [place]ation [facility] [place] [address] [place], [place] [phone] Family Medicine, Physician [address] [place] [address] Social History Tobacco Use Types Packs/Day Years [...] on filedocumented in this encounter Care Teams Granite Fabricator Relationship Specialty Start Date End Date Jamal Hernandez MD [address] [place] [address] [place] [address] PCP - General 10/25/16 06/23/22 documented as of this encounter
--- OUTSIDE RECORDS SUMMARY | 2024-05-04 15:28 | XMS_ITS | Encounter Summary ---
Author Organization [facility] Address [address] [place] [address] Phone Care Team Providers Care Jig Borer Name Role Phone Jamal Hernandez MD Primary Care Provider [phone] Encounter Details Date Type Department Care Team (Late st Contact Info) Description 07/22/2016 Documentation [facility] [place] [address] [place], [place] [phone] Family Medicine, Physician [address] [place] [address] Social History Tobacco Use Types Packs/Day Years [...] on filedocumented in this encounter Care Teams Jig Borer Relationship Specialty Start Date End Date Jamal Hernandez MD [address] [place] [address] [place] [address] PCP - General 10/25/16 06/23/22 documented as of this encounter
--- OUTSIDE RECORDS SUMMARY | 2024-05-04 15:28 | XMS_ITS | Encounter Summary ---
Author Organization [facility] Address [address] [place] [address] Phone Care Team Providers Care Manager Services Name Role Phone Jamal Hernandez MD Primary Care Provider [phone] Encounter Details Date Type Department Care Team (Late st Contact Info) Description 09/02/2014 Documentation [facility] [place] [address] [place] [address] Family Medicine, Physician [address] [place], [place] 952441 Social History Tobacco Use Types Packs/Day Years [...] on filedocumented in this encounter Care Teams Manager Services Relationship Specialty Start Date End Date Jamal Hernandez MD [address] [place] [address] [place]AYDE [address] PCP - General 10/25/16 06/23/22 documented as of this encounter
--- OUTSIDE RECORDS SUMMARY | 2024-05-04 15:28 | XMS_ITS | Encounter Summary ---
Author Organization [facility] Address [address] [place], [place] [address] Phone Care Team Providers Care Collection Supervisor Name Role Phone Jamal Hernandez MD Primary Care Provider [phone] Encounter Details Date Type Department Care Team (Late st Contact Info) Description 10/31/2016 Conversion Encounter [facility] [place] [address] [place] [address] Social History Tobacco Use Types Packs/Day Years [...] on filedocumented in this encounter Care Teams Collection Supervisor Relationship Specialty Start Date End Date Jamal Hernandez MD [address] [place] [address] PCP - General 10/25/16 06/23/22 documented as of this encounter
--- OUTSIDE RECORDS SUMMARY | 2024-05-04 15:28 | XMS_ITS | Encounter Summary ---
Author Organization [facility] Address [address] [place] [address] Phone Care Team Providers Care Tower Control Operator Name Role Phone Jamal Hernandez MD Primary Care Provider [phone] Encounter Details Date Type Department Care Team (Late st Contact Info) Description 07/12/2016 [place]ation [facility] [place] [address] [place], [place] [phone] Family Medicine, Physician [address] [place] [address] Social History Tobacco Use Types Packs/Day Years [...] on filedocumented in this encounter Care Teams Tower Control Operator Relationship Specialty Start Date End Date Jamal Hernandez MD [address] [place] [address] [place] [address] PCP - General 10/25/16 06/23/22 documented as of this encounter
--- OUTSIDE RECORDS SUMMARY | 2024-05-04 15:28 | XMS_ITS | Encounter Summary ---
Author Organization [facility] Address [address] [place] [address] Phone Care Team Providers Care Screening Nurse Name Role Phone Jamal Hernandez MD Primary Care Provider [phone] Encounter Details Date Type Department Care Team (Late st Contact Info) Description 08/29/2016 Documentation [facility] [place] Family [place] [address] [place], [place] [phone] Family Medicine, Physician [address] [place] [address] Social History Tobacco Use Types Packs/Day Years [...] on filedocumented in this encounter Care Teams Screening Nurse Relationship Specialty Start Date End Date Jamal Hernandez MD [address] [place] [address] [place] [address] PCP - General 10/25/16 06/23/22 documented as of this encounter
--- OUTSIDE RECORDS SUMMARY | 2024-05-04 15:28 | XMS_ITS | Encounter Summary ---
Author Organization [facility] Address [address] [place] [address] Phone Care Team Providers Care Live Hanger Name Role Phone Jamal Hernandez MD Primary Care Provider [phone] Encounter Details Date Type Department Care Team (Late st Contact Info) Description 07/12/2016 [place]ation [facility] [place] [address] [place], [place] [phone] Family Medicine, Physician [address] [place] [address] Social History Tobacco Use Types Packs/Day Years [...] on filedocumented in this encounter Care Teams Live Hanger Relationship Specialty Start Date End Date Jamal Hernandez MD [address] [place] [address] [place] [address] PCP - General 10/25/16 06/23/22 documented as of this encounter
--- OUTSIDE RECORDS SUMMARY | 2024-05-04 15:28 | XMS_ITS | Encounter Summary ---
Author Organization [facility] Address [address] [place] [address] Phone Care Team Providers Care Heading Repairer Name Role Phone Jamal Hernandez MD Primary Care Provider [phone] Encounter Details Date Type Department Care Team (Late st Contact Info) Description 08/14/2016 Documentation [facility] [place] [address] [place], [place] [phone] Family Medicine, Physician [address] [place] [address] Social History Tobacco Use Types Packs/Day Years [...] on filedocumented in this encounter Care Teams Heading Repairer Relationship Specialty Start Date End Date Jamal Hernandez MD [address] [place] [address] [place] [address] PCP - General 10/25/16 06/23/22 documented as of this encounter
--- OUTSIDE RECORDS SUMMARY | 2024-05-04 15:28 | XMS_ITS | Encounter Summary ---
Author Organization [facility] Address [address] [place] [address] Phone Care Team Providers Care Precision Grinder Name Role Phone Jamal Hernandez MD Primary Care Provider [phone] Encounter Details Date Type Department Care Team (Late st Contact Info) Description 04/15/2016 Documentation [facility] [place] Family Medicine [address] [place], [place] [phone] Family Medicine, Physician [address] [place] [address] Social History Tobacco Use Types Packs/Day Years [...] on filedocumented in this encounter Care Teams Precision Grinder Relationship Specialty Start Date End Date Jamal Hernandez MD [address] [place] [address] [place] [address] PCP - General 10/25/16 06/23/22 documented as of this encounter
--- OUTSIDE RECORDS SUMMARY | 2024-05-04 15:28 | XMS_ITS | Encounter Summary ---
Author Organization [facility] Address [address] [place] [address] Phone Care Team Providers Care Nanoscience Technician Name Role Phone Jamal Hernandez MD Primary Care Provider [phone] Encounter Details Date Type Department Care Team (Late st Contact Info) Description 06/06/2016 Documentation [facility] [place] [address] [place], [place] [phone] Family Medicine, Physician [address] [place] [address] Social History Tobacco Use Types Packs/Day Years [...] on filedocumented in this encounter Care Teams Nanoscience Technician Relationship Specialty Start Date End Date Jamal Hernandez MD [address] [place] [address] [place] [address] PCP - General 10/25/16 06/23/22 documented as of this encounter
--- OUTSIDE RECORDS SUMMARY | 2024-05-04 15:28 | XMS_ITS | Encounter Summary ---
Author Organization [facility] Address [address] [place] [address] Phone Care Team Providers Care Paper Coater Name Role Phone Jamal Hernandez MD Primary Care Provider [phone] Encounter Details Date Type Department Care Team (Late st Contact Info) Description 09/20/2016 Documentation [facility] [place] Family Medicine [address] [place], [place] [phone] Family Medicine, Physician [address] [place] [address] Social History Tobacco Use Types Packs/Day Years [...] on filedocumented in this encounter Care Teams Paper Coater Relationship Specialty Start Date End Date Jamal Hernandez MD [address] [place] [address] [place] [address] PCP - General 10/25/16 06/23/22 documented as of this encounter
--- OUTSIDE RECORDS SUMMARY | 2024-05-04 15:28 | XMS_ITS | Encounter Summary ---
Author Organization [facility] Address [address] [place] [address] Phone Care Team Providers Care Choir Director Name Role Phone Jamal Hernandez MD Primary Care Provider [phone] Encounter Details Date Type Department Care Team (Late st Contact Info) Description 07/12/2016 Documentation [facility] [place] [address] [place], [place] [phone] Family Medicine, Physician [address] [place] [address] Social History Tobacco Use Types Packs/Day Years [...] on filedocumented in this encounter Care Teams Choir Director Relationship Specialty Start Date End Date Jamal Hernandez MD [address] [place] [address] [place] [address] PCP - General 10/25/16 06/23/22 documented as of this encounter
--- OUTSIDE RECORDS SUMMARY | 2024-05-04 15:28 | XMS_ITS | Encounter Summary ---
Author Organization [facility] Address [address] [place] [address] Phone Care Team Providers Care Community Development Technician Name Role Phone Jamal Hernandez MD Primary Care Provider [phone] Encounter Details Date Type Department Care Team (Late st Contact Info) Description 08/29/2016 Documentation [facility] [place] [address] [place], [place] [phone] Family Medicine, Physician [address] [place] [address] Social History Tobacco Use Types Packs/Day Years [...] on filedocumented in this encounter Care Teams Community Development Technician Relationship Specialty Start Date End Date Jamal Hernandez MD [address] [place] [address] [place] [address] PCP - General 10/25/16 06/23/22 documented as of this encounter
--- OUTSIDE RECORDS SUMMARY | 2024-05-04 15:28 | XMS_ITS | Encounter Summary ---
Author Organization [facility] Address [address] [place] [address] Phone Care Team Providers Care Forest Economics Professor Name Role Phone Jamal Hernandez MD Primary Care Provider [phone] Encounter Details Date Type Department Care Team (Late st Contact Info) Description 07/24/2016 Documentation [facility] [place] [address] [place], [place] [phone] Family Medicine, Physician [address] [place] [address] Social History Tobacco Use Types Packs/Day Years [...] on filedocumented in this encounter Care Teams Forest Economics Professor Relationship Specialty Start Date End Date Jamal Hernandez MD [address] [place] [address] [place] [address] PCP - General 10/25/16 06/23/22 documented as of this encounter
--- OUTSIDE RECORDS SUMMARY | 2024-05-04 15:28 | XMS_ITS | Encounter Summary ---
Author Organization [facility] Address [address] [place] [address] Phone Care Team Providers Care Certified Personal Chef Name Role Phone Jamal Hernandez MD Primary Care Provider [phone] Encounter Details Date Type Department Care Team (Late st Contact Info) Description 06/06/2016 Documentation [facility] [place] [address] [place], [place] [phone] Family Medicine, Physician [address] [place] [address] Social History Tobacco Use Types Packs/Day Years [...] on filedocumented in this encounter Care Teams Certified Personal Chef Relationship Specialty Start Date End Date Jamal Hernandez MD [address] [place] [address] [place] [address] PCP - General 10/25/16 06/23/22 documented as of this encounter
--- OUTSIDE RECORDS SUMMARY | 2024-05-04 15:28 | XMS_ITS | Encounter Summary ---
Author Organization [facility] Address [address] [place] [address] Phone Care Team Providers Care Automotive Parts Coordinator Name Role Phone Jamal Hernandez MD Primary Care Provider [phone] Encounter Details Date Type Department Care Team (Late st Contact Info) Description 08/29/2016 Documentation [facility] [place] Medicine [address] [place], [place] [phone] Family Medicine, Physician [address] [place] [address] Social History Tobacco Use Types Packs/Day Years [...] on filedocumented in this encounter Care Teams Automotive Parts Coordinator Relationship Specialty Start Date End Date Jamal Hernandez MD [address] [place] [address] [place] [address] PCP - General 10/25/16 06/23/22 documented as of this encounter
--- OUTSIDE RECORDS SUMMARY | 2024-05-04 15:28 | XMS_ITS | Encounter Summary ---
Author Organization [facility] Address [address] [place] [address] Phone Care Team Providers Care Singing Messenger Name Role Phone Jamal Hernandez MD Primary Care Provider [phone] Encounter Details Date Type Department Care Team (Late st Contact Info) Description 08/29/2016 Documentation [facility] [place] Family [place] [address] [place], [place] [phone] Family Medicine, Physician [address] [place] [address] Social History Tobacco Use Types Packs/Day Years [...] on filedocumented in this encounter Care Teams Singing Messenger Relationship Specialty Start Date End Date Jamal Hernandez MD [address] [place] [address] [place] [address] PCP - General 10/25/16 06/23/22 documented as of this encounter
--- OUTSIDE RECORDS SUMMARY | 2024-05-04 15:29 | XMS_ITS | Encounter Summary ---
Author Organization [facility] Address [address] [place] [address] Phone Care Team Providers Care Team Assistant Name Role Phone Jamal Hernandez MD Primary Care Provider [phone] Encounter Details Date Type Department Care Team (Late st Contact Info) Description 06/06/2016 Documentation [facility] [place] Family Medicine [address] [place], [place] 1518393 Family Medicine, Physician [address] [place] [address] Social History Tobacco Use Types Packs/Day Years [...] on filedocumented in this encounter Care Teams Team Assistant Relationship Specialty Start Date End Date Jamal Hernandez MD [address] [place] [address] [place] [address] PCP - General 10/25/16 06/23/22 documented as of this encounter
--- OUTSIDE RECORDS SUMMARY | 2024-05-04 15:29 | XMS_ITS | Encounter Summary ---
Author Organization [facility] Address [address] [place] [address] Phone Care Team Providers Care Product Examiner Name Role Phone Jamal Hernandez MD Primary Care Provider [phone] Encounter Details Date Type Department Care Team (Late st Contact Info) Description 05/21/2016 Documentation [facility] [place] Family Medicine [address] [place], [place] [phone] Family Medicine, Physician [address] [place] [address] Social History Tobacco Use Types Packs/Day Years [...] on filedocumented in this encounter Care Teams Product Examiner Relationship Specialty Start Date End Date Jamal Hernandez MD [address] [place] [address] [place] [address] PCP - General 10/25/16 06/23/22 documented as of this encounter
--- OUTSIDE RECORDS SUMMARY | 2024-05-04 15:29 | XMS_ITS | Encounter Summary ---
Author Organization [facility] Address [address] [place] [address] Phone Care Team Providers Care Melter Assistant Name Role Phone Jamal Hernandez MD Primary Care Provider [phone] Encounter Details Date Type Department Care Team (Late st Contact Info) Description 05/21/2016 Documentation [facility] [place] [address] [place], [place] [phone] Family Medicine, Physician [address] [place] [address] Social History Tobacco Use Types Packs/Day Years [...] on filedocumented in this encounter Care Teams Melter Assistant Relationship Specialty Start Date End Date Jamal Hernandez MD [address] [place] [address] [place] [address] PCP - General 10/25/16 06/23/22 documented as of this encounter
== END 2024-05-04 16:46 | disposition home or self-care (01) ==
LOC: HO.HMCH 14:28
PROVIDERS: PCP Physician Assistant; Visit Provider Physician Assistant
DX: F41.1 Generalized anxiety disorder (principal); N94.9 Unspecified condition associated with female genital organs and menstrual cycle

== ENCOUNTER → 2024-05-04 14:28 | Outpatient (BNVA) | payer OTHER, SELFPAY | PROVIDERS: PCP Physician Assistant; Visit Provider Physician Assistant ==

== ENCOUNTER 2025-01-24 13:31 | Outpatient (AMB) | payer OTHER, SELFPAY ==
[2025-01-24 13:35] VITALS: BP 92/62; BMI 20.9
--- NOTE | 2025-01-24 13:35 | MHC.OFFVIS ---
Vital Signs 01/24/25 13:35 Height 5 ft 2 in Weight 114 lb 4 oz BMI 20.9 BP 92/62 Blood Pressure Location Lt brachial Position Sitting Intake Visit Reasons: DESK MONITOR annual exam Application Development Intern Required: No Allergies copper Allergy (Unknown, Verified 01/24/25 13:38) Rash adhesive tape Allergy (Verified 01/24/25 13:38) Rash Medication List - Last Reconciled 01/24/25 by Destiny Ortiz LPN hydroxyzine HCl 10 mg PO ONCE PRN 14 days Is last menstrual period known: Yes Last menstrual period: 01/24/25 Post menopausal: No Patient : No Do you need a note to return to daycare/school/sports/work: No HPI HPI DESK MONITOR annual exam: Details: 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 She had a history of abnormal periods and she had a cyst last year. At some point her periods became more regular and she had been keeping track but then she lost track for a while though her last period was December 24 and today a new menstrual flow has started it was just brown spotting earlier but it is a full flow right now. She says she is not sexually active though when I questioned as to when she most recently was it was 2 weeks ago she is open after conversation to testing for STIs with the exam though she is not too worried she has had sex with a man in the past but she never used any kind of contraception and she has no idea what she would want to use in the future she has no plans to become sexually active any time soon. 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 [facility] Medical History SOB (shortness of breath) Collapse of right lung Surgical History History of surgery History of appendectomy Family History (Updated 01/24/25 @ 13:40 by Destiny Ortiz LPN) Father No problems noted. Mother HTN (hypertension) Brother No problems noted. 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 Current occupational exposures/hazards: No Cognitive needs: No Hearing needs: No Vision needs: No Female Reproductive History Menstrual Age of Menarche: 11 Duration of menses: 6-7 days Date of last menstrual period: 01/24/25 control method: none Total pregnancies: 0 Date of last pap smear: 02/09/24 History of abnormal pap smear: No History of STI: No Physical Exam Vital Signs: Last Vital Signs BP 92/62 01/24/25 13:35 BMI result Body Mass Index 20.9 Const General: healthy appearing, comfortable, no acute distress, well developed and alert Nutritional Appearance: average body habitus Orientation/consciousness: patient oriented x3 Limitations: no limitations HEENT Head: Yes normocephalic Neck Neck: Yes normal visual inspection Chest Chest palpation & inspection: normal inspection of the chest Breast/axilla inspection: normal inspection of the breasts and normal inspection of the axillae Breast/axilla palpation: normal palpation of the breasts and normal palpation of the axillae Resp Effort & Inspection: normal respiratory effort GI Inspection: Yes normal to inspection, No Abdominal wall edema and No distended Palpation (GI): Soft to palpation and nontender Other: External exam within normal limits moderate menses evident vagina pink and moist cervix nulliparous pink smooth healthy appearing but slightly obscured by menstrual flow uterus small midposition mobile nontender adnexa nontender nonenlarged extremely good muscle tone. General: Yes bladder normal to palpation External Female Exam: normal external appearance and normal appearance of the urethra Speculum Exam - Vagina: normal appearance of the vagina, normal palpation and normal vaginal discharge Speculum Exam - Cervix: normal appearance of the cervix, normal palpation and nontender Bimanual exam- vagina & uterus: normal bimanual exam, normal palpation, uterine size normal, bladder normal to palpation, consistency normal, normal palpation, uterine mobility normal, uterine shape normal, No Cervical tenderness present, non-tender and no cervical motion tenderness Bimanual Exam- Adnexa, other: normal adnexae, no masses, normal and No adnexal tenderness Neuro General: patient oriented x3 Assessment & Plan Assessment & Plan (1) Well woman exam with routine gynecological exam: Code(s): Z01.419 - Encounter for gynecological examination (general) (routine) without abnormal findings Category: Medical (2) Cervical cancer screening: Comment: 01/19/2024 Pap is negative. Code(s): Z12.4 - Encounter for screening for malignant neoplasm of cervix Category: Medical (3) Encounter for screening examination for sexually transmitted disease: Code(s): Z11.3 - Encounter for screening for infections with a predominantly sexual mode of transmission Category: Medical (4) Menorrhagia with regular cycle: Comment: Previously they were heavier and more irregular they seem to be more regular the last couple of months. Urged to keep keeping track. Code(s): N92.0 - Excessive and frequent menstruation with regular cycle Category: Medical Plan -----Discussed in this visit the following: healthy balanced diet, regular and consistent exercise, getting recommended health screens, doing the best she can for her particular health concerns, kegel exercises, pap smear screening and followup recommendations, mammography screening and SBE, normal changes in cycles in her life stage--- . Her last Pap smear was negative last year so she is not due for Pap now she is open to testing for STIs with the exam but not particularly worried. She has no plans to become sexually active in briefly discussing safer sex and contraception she has no idea what she would want to use for control in the future and she does not really want to discuss it today but she said that she would use condoms which I highly recommend. She used to have very irregular periods and they would be long and heavy and then they became normal so she stopped keeping track though this 1 is right on time at 30 days after the last one. I recommend she continue keeping track so that if any issues develop she will have all her information handy. We will see her in 1 year but if she desires any method of control or has any issues before next year's visit she may call it any time.. Orders: Orders CT NG by PCR Vag/Cerv Today Z11.3 - Encounter for screening for infections with a predominantly sexual mode of transmission Bacterial Vaginosis Panel Today Z11.3 - Encounter for screening for infections with a predominantly sexual mode of transmission Coding Level of Care Code Est Pt Prev Care [id number]) Diagnoses Well woman exam with routine gynecological exam Z01.419 Cervical cancer screening Z12.4 Encounter for screening examination for sexually transmitted disease Z11.3 Menorrhagia with regular cycle N92.0
--- OUTSIDE RECORDS SUMMARY | 2025-01-24 15:40 | XMS_ITS | Encounter Summary ---
Author Organization [facility] Address [address] [place] [address] Phone Care Team Providers Care Credit Resolution Representative Name Role Phone Jamal Hernandez MD Primary Care Provider Encounter Details Date Type Department Care Team (Late st Contact Info) Description 06/06/2016 Documentation [facility] [place] Family [place] [address] [place], [place] [phone] Family Medicine, Physician [address] [place] [address] Social History Tobacco Use Types Packs/Day Years [...] on filedocumented in this encounter Care Teams Credit Resolution Representative Relationship Specialty Start Date End Date Jamal Hernandez MD [address] [place] [address] [place] [address] PCP - General 10/25/16 06/23/22 documented as of this encounter
--- OUTSIDE RECORDS SUMMARY | 2025-01-24 15:40 | XMS_ITS | Encounter Summary ---
Author Organization [facility] Address [address] [place] [address] Phone Care Team Providers Care Reo Asset Manager Name Role Phone Jamal Hernandez MD Primary Care Provider [phone] Encounter Details Date Type Department Care Team (Late st Contact Info) Description 07/12/2016 Documentation [facility] [place] Family Medicine [address] [place], [place] [phone] Family Medicine, Physician [address] [place] [address] Social History Tobacco Use Types Packs/Day Years [...] on filedocumented in this encounter Care Teams Reo Asset Manager Relationship Specialty Start Date End Date Jamal Hernandez MD [address] [place] [address] [place] [address] PCP - General 10/25/16 06/23/22 documented as of this encounter
--- OUTSIDE RECORDS SUMMARY | 2025-01-24 15:40 | XMS_ITS | Encounter Summary ---
Author Organization [facility] Address [address] [place] [address] Phone Care Team Providers Care Auditing Control Clerk Name Role Phone Jamal Hernandez MD Primary Care Provider [phone] Encounter Details Date Type Department Care Team (Late st Contact Info) Description 09/20/2016 Documentation [facility] [place] Family Medicine [address] [place], [place] [phone] Family Medicine, Physician [address] [place] [address] Social History Tobacco Use Types Packs/Day Years [...] on filedocumented in this encounter Care Teams Auditing Control Clerk Relationship Specialty Start Date End Date Jamal Hernandez MD [address] [place] [address] [place] [address] PCP - General 10/25/16 06/23/22 documented as of this encounter
--- OUTSIDE RECORDS SUMMARY | 2025-01-24 15:40 | XMS_ITS | Encounter Summary ---
Author Organization [facility] Address [address] [place] [address] Phone Care Team Providers Care Hog Dropper Name Role Phone Jamal Hernandez MD Primary Care Provider [phone] Encounter Details Date Type Department Care Team (Late st Contact Info) Description 08/29/2016 Documentation [facility] [place] Family Medicine [address] [place], [place] [phone] Family Medicine, Physician [address] [place] [address] Social History Tobacco Use Types Packs/Day Years [...] on filedocumented in this encounter Care Teams Hog Dropper Relationship Specialty Start Date End Date Jamal Hernandez MD [address] [place] [address] [place] [address] PCP - General 10/25/16 06/23/22 documented as of this encounter
--- OUTSIDE RECORDS SUMMARY | 2025-01-24 15:40 | XMS_ITS | Encounter Summary ---
Author Organization [facility] Address [address] [place] [address] Phone Care Team Providers Care Diamond Sawer Name Role Phone Jamal Hernandez MD Primary Care Provider [phone] Encounter Details Date Type Department Care Team (Late st Contact Info) Description 08/14/2016 Documentation [facility] [place] Family [place] [address] [place], [place] [phone] Family Medicine, Physician [address] [place] [address] Social History Tobacco Use Types Packs/Day Years [...] on filedocumented in this encounter Care Teams Diamond Sawer Relationship Specialty Start Date End Date Jamal Hernandez MD [address] [place] [address] [place]AY[place] [address] PCP - General 10/25/16 06/23/22 documented as of this encounter
--- OUTSIDE RECORDS SUMMARY | 2025-01-24 15:40 | XMS_ITS | Encounter Summary ---
Author Organization [facility] Address [address] [place] [address] Phone Care Team Providers Care Underground Electrician Name Role Phone Jamal Hernandez MD Primary Care Provider [phone] Encounter Details Date Type Department Care Team (Late st Contact Info) Description 10/03/2016 [place]ation [facility] [place] [address] [place], [place] [phone] Family Medicine, Physician [address] [place] [address] Social History Tobacco Use Types Packs/Day Years [...] on filedocumented in this encounter Care Teams Underground Electrician Relationship Specialty Start Date End Date Jamal Hernandez MD [address] [place] [address] [place] [address] PCP - General 10/25/16 06/23/22 documented as of this encounter
--- OUTSIDE RECORDS SUMMARY | 2025-01-24 15:40 | XMS_ITS | Encounter Summary ---
Author Organization [facility] Address [address] [place] [address] Phone Care Team Providers Care Geological Survey Field Assistant Name Role Phone Jamal Hernandez MD Primary Care Provider [phone] Encounter Details Date Type Department Care Team (Late st Contact Info) Description 04/15/2016 Documentation [facility] [place] [address] [place], [place] [id number] Family Medicine, Physician [address] [place] [address] Social History Tobacco Use Types Packs/Day Years [...] on filedocumented in this encounter Care Teams Geological Survey Field Assistant Relationship Specialty Start Date End Date Jamal Hernandez MD [address] [place] [address] [place] [address] PCP - General 10/25/16 06/23/22 documented as of this encounter
--- OUTSIDE RECORDS SUMMARY | 2025-01-24 15:40 | XMS_ITS | Encounter Summary ---
Author Organization [facility] Address [address] [place] [address] Phone Care Team Providers Care Wheel Shop Supervisor Name Role Phone Jamal Hernandez MD Primary Care Provider [phone] Encounter Details Date Type Department Care Team (Late st Contact Info) Description 06/06/2016 Documentation [facility] [place] [address] [place], [place] [id number] Family Medicine, Physician [address] [place] [address] Social History Tobacco Use Types Packs/Day Years [...] on filedocumented in this encounter Care Teams Wheel Shop Supervisor Relationship Specialty Start Date End Date Jamal Hernandez MD [address] [place] [address] [place] [address] PCP - General 10/25/16 06/23/22 documented as of this encounter
--- OUTSIDE RECORDS SUMMARY | 2025-01-24 15:40 | XMS_ITS | Clinical Summary ---
Author Organization [facility] Address [address] [place] [address] Phone Care Team Providers Care [facility] Owner Name Role Phone Unavailable Primary Care Provider [...] 88 10/08/2018 4:08 PM EDT Temperature 37.3 C (99.1 F) 10/08/2018 4:08 PM EDT Respiratory Rate - - Oxygen Saturation - [...] 10/08/2002, Additional history exists Influenza Vaccines (#1) 2024 11/20/19 17, 02/28/2016, 02/23/2015, Additional history exists COVID-19 Vaccine ( season) 2024 12/20/2020, 11/29/2020 Hepatitis B Vaccines Completed 04/14/2000, [...] complete this topic Procedures * Due to [place] Mobim law, this organization might not be sharing sensitive test results. Procedure Name Priority Date/Time Associated Diagnosis Comments CHLAMYDIA AND GONORRHEA, AMPLIFIED Routine 10/08/2018 4:28 PM EDT Generalized abdominal pain from Last 3 Months or Most Recently Relevant to Health Maintenance Results * Due to [place] Mobim law, this organization might not be sharing sensitive test results. * Chlamydia and Gonorrhoea, Amplified (10/08/2018 4:28 PM EDT) Chlamydia Trachomatis, DNA Probe NEGATIVE (NEG) [facility] Comment: No Chlamydia Trachomatis RNA detected in this patient's sample (REFERENCE RANGE/NORMAL VALUE: NOT DETECTED) Note: This test uses captain waiter- mediated amplification method to detect rRNA from C. Trachomatis URINE GC AMP PROBE NEGATIVE (NEG) [facility] Comment: No Neisseria Gonorrhoeae RNA detected in this patient's sample (REFERENCE RANGE/NORMAL VALUE: NOT DETECTED) NOTE: This test uses captain waiter-mediated amplification method to detect rRNA from N.Gonorrhoeae. [...] without risk of sexual abuse. Consult the [facility] if needed. Contact phone number . Therapeutic failure or success cannot be determined with the Aptima Combo2 assay since nucleic acid may persist following appropriate antimicrobial therapy. The Centers for Disease Control and Prevention (CDC) recommends confirmatory retesting using culture or a different nucleic acid amplification test when positive results occur, if indicated. Testing performed or reported by [facility], a Service of [facility], [address] [place] [address] 10/08/2018 4:28 PM EDT 10/08/2018 9:45 PM EDT us Nikki Paredes MD LAB MICROBIOLOGY - GENERAL ORDER BENIGNO Final Result [facility] from Last 3 Months or Most Recently Relevant to Health Maintenance Insurance [facility] PPO
--- OUTSIDE RECORDS SUMMARY | 2025-01-24 15:40 | XMS_ITS | Encounter Summary ---
Author Organization [facility] Address [address] [place] [address] Phone Care Team Providers Care Digital Assistant Name Role Phone Jamal Hernandez MD Primary Care Provider [phone] Encounter Details Date Type Department Care Team (Late st Contact Info) Description 08/29/2016 Documentation [facility] [place] Family Medicine [address] [place], [place] [id number] Family Medicine, Physician [address] [place] [address] Social History Tobacco Use Types Packs/Day Years [...] on filedocumented in this encounter Care Teams Digital Assistant Relationship Specialty Start Date End Date Jamal Hernandez MD [address] [place] [address] [place] [address] PCP - General 10/25/16 06/23/22 documented as of this encounter
--- OUTSIDE RECORDS SUMMARY | 2025-01-24 15:40 | XMS_ITS | Encounter Summary ---
Author Organization [facility] Address [address] [place] [address] Phone Care Team Providers Care Photovoltaic Testing Technician Name Role Phone Jamal Hernandez MD Primary Care Provider [phone] Encounter Details Date Type Department Care Team (Late st Contact Info) Description 07/12/2016 Documentation [facility] [place] [address] [place], [place] [phone] Family Medicine, Physician [address] [place] [address] Social History Tobacco Use Types Packs/Day Years [...] on filedocumented in this encounter Care Teams Photovoltaic Testing Technician Relationship Specialty Start Date End Date Jamal Hernandez MD [address] [place] [address] [place] [address] PCP - General 10/25/16 06/23/22 documented as of this encounter
--- OUTSIDE RECORDS SUMMARY | 2025-01-24 15:40 | XMS_ITS | Encounter Summary ---
Author Organization [facility] Address [address] [place] [address] Phone Care Team Providers Care Pediatric Dental Hygienist Name Role Phone Jamal Hernandez MD Primary Care Provider [phone] Encounter Details Date Type Department Care Team (Late st Contact Info) Description 05/21/2016 Documentation [facility] [place] [address] [place], [place] [phone] Family Medicine, Physician [address] [place] [address] Social History Tobacco Use Types Packs/Day Years [...] on filedocumented in this encounter Care Teams Pediatric Dental Hygienist Relationship Specialty Start Date End Date Jamal Hrenandez MD [address] [place] [address] [place] [address] PCP - General 10/25/16 06/23/22 documented as of this encounter
--- OUTSIDE RECORDS SUMMARY | 2025-01-24 15:40 | XMS_ITS | Encounter Summary ---
Author Organization [facility] Address [address] [place] [address] Phone Care Team Providers Care Communications Field Technician Name Role Phone Jamal Hernandez MD Primary Care Provider [phone] Encounter Details Date Type Department Care Team (Late st Contact Info) Description 05/21/2016 Documentation [facility] [place] [address] [place], [place] [phone] Family Medicine, Physician [address] [place] [address] Social History Tobacco Use Types Packs/Day Years [...] on filedocumented in this encounter Care Teams Communications Field Technician Relationship Specialty Start Date End Date Jamal Hernandez MD [address] [place] [address] [place] [address] PCP - General 10/25/16 06/23/22 documented as of this encounter
--- OUTSIDE RECORDS SUMMARY | 2025-01-24 15:40 | XMS_ITS | Encounter Summary ---
Author Organization [facility] Address [address] [place] [address] Phone Care Team Providers Care Life Skills Specialist Name Role Phone Jamal Hernandez MD Primary Care Provider [phone] Encounter Details Date Type Department Care Team (Late st Contact Info) Description 07/12/2016 Documentation [facility] [place] [address] [place], [place] [phone] Family Medicine, Physician [address] [place] [address] Social History Tobacco Use Types Packs/Day Years [...] on filedocumented in this encounter Care Teams Life Skills Specialist Relationship Specialty Start Date End Date Jamal Hernandez MD [address] [place] [address] [place] [address] PCP - General 10/25/16 06/23/22 documented as of this encounter
--- OUTSIDE RECORDS SUMMARY | 2025-01-24 15:40 | XMS_ITS | Encounter Summary ---
Author Organization [facility] Address [address] [place] [address] Phone Care Team Providers Care Java Security Engineer Name Role Phone Jamal Hernandez MD Primary Care Provider [phone] Encounter Details Date Type Department Care Team (Late st Contact Info) Description 06/27/2016 Documentation [facility] Family Medicine [address] [place], [place] [phone] Family Medicine, Physician [address] [place] [address] Social History Tobacco Use Types Packs/Day Years [...] on filedocumented in this encounter Care Teams Java Security Engineer Relationship Specialty Start Date End Date Jamal Hernandez MD [address] [place] [address] [place] [address] PCP - General 10/25/16 06/23/22 documented as of this encounter
--- OUTSIDE RECORDS SUMMARY | 2025-01-24 15:40 | XMS_ITS | Encounter Summary ---
Author Organization [facility] Address [address] [place] [address] Phone Care Team Providers Care Drafter Detail Name Role Phone Jamal Hernandez MD Primary Care Provider [phone] Encounter Details Date Type Department Care Team (Late st Contact Info) Description 08/29/2016 Documentation [facility] [place] [address] [place], [place] [phone] Family Medicine, Physician [address] [place] [address] Social History Tobacco Use Types Packs/Day Years [...] on filedocumented in this encounter Care Teams Drafter Detail Relationship Specialty Start Date End Date Jamal Hernandez MD [address] [place] [address] [place] [address] PCP - General 10/25/16 06/23/22 documented as of this encounter
--- OUTSIDE RECORDS SUMMARY | 2025-01-24 15:40 | XMS_ITS | Encounter Summary ---
Author Organization [facility] Address [address] [place] [address] Phone Care Team Providers Care Commercial Print Salesman Name Role Phone Jamal Hernandez MD Primary Care Provider [phone] Encounter Details Date Type Department Care Team (Late st Contact Info) Description 07/29/2016 Documentation [facility] [place] [address] [place], [place] [phone] Family Medicine, Physician [address] [place] [address] Social History Tobacco Use Types Packs/Day Years [...] on filedocumented in this encounter Care Teams Commercial Print Salesman Relationship Specialty Start Date End Date Jamal Hernandez MD [address] [place] [address] [place] [address] PCP - General 10/25/16 06/23/22 documented as of this encounter
--- OUTSIDE RECORDS SUMMARY | 2025-01-24 15:40 | XMS_ITS | Encounter Summary ---
Author Organization [facility] Address [address] [place] [address] Phone Care Team Providers Care Air Conditioning Mechanic Name Role Phone Jamal Hernandez MD Primary Care Provider [phone] Encounter Details Date Type Department Care Team (Late st Contact Info) Description 07/24/2016 Documentation [facility] [place] [address] [place], [place] [phone] Family Medicine, Physician [address] [place] [address] Social History Tobacco Use Types Packs/Day Years [...] on filedocumented in this encounter Care Teams Air Conditioning Mechanic Relationship Specialty Start Date End Date Jamal Hernandez MD [address] [place] [address] [place] [address] PCP - General 10/25/16 06/23/22 documented as of this encounter
--- OUTSIDE RECORDS SUMMARY | 2025-01-24 15:40 | XMS_ITS | Encounter Summary ---
Author Organization [facility] Address [address] [place] [address] Phone Care Team Providers Care Hand Ii Tube Bender Name Role Phone Jamal Hernandez MD Primary Care Provider [phone] Encounter Details Date Type Department Care Team (Late st Contact Info) Description 06/06/2016 Documentation [facility] [place] [address] [place], [place] [phone] Family Medicine, Physician [address] [place] [address] Social History Tobacco Use Types Packs/Day Years [...] on filedocumented in this encounter Care Teams Hand Ii Tube Bender Relationship Specialty Start Date End Date Jamal Hernandez MD [address] [place] [address] [place] [address] PCP - General 10/25/16 06/23/22 documented as of this encounter
--- OUTSIDE RECORDS SUMMARY | 2025-01-24 15:40 | XMS_ITS | Encounter Summary ---
Author Organization [facility] Address [address] [place] [address] Phone Care Team Providers Care Airways Operations Specialist Name Role Phone Jamal Hernandez MD Primary Care Provider Encounter Details Date Type Department Care Team (Late st Contact Info) Description 07/22/2016 Documentation [facility] [place] [address] [place], [place] 1295[address] Family Medicine, Physician [address] [place] [address] Social History Tobacco Use Types Packs/Day Years [...] on filedocumented in this encounter Care Teams Airways Operations Specialist Relationship Specialty Start Date End Date Jamal Hernandez MD [address] [place] [address] [place] [address] PCP - General 10/25/16 06/23/22 documented as of this encounter
--- OUTSIDE RECORDS SUMMARY | 2025-01-24 15:40 | XMS_ITS | Encounter Summary ---
Author Organization [facility] Address [address] [place] [address] Phone Care Team Providers Care Thread Checker Name Role Phone Jamal Hernandez MD Primary Care Provider [phone] Encounter Details Date Type Department Care Team (Late st Contact Info) Description 09/02/[address] [facility] [place] [address] [place] [address] Family Medicine, Physician [address] [place], [place] 178461 Social History Tobacco Use Types Packs/Day Years [...] on filedocumented in this encounter Care Teams Thread Checker Relationship Specialty Start Date End Date Jamal Hernandez MD [address] [place] [address] [place] [address] PCP - General 10/25/16 06/23/22 documented as of this encounter
--- OUTSIDE RECORDS SUMMARY | 2025-01-24 15:40 | XMS_ITS | Encounter Summary ---
Author Organization [facility] Address [address] [place] [address] Phone Care Team Providers Care Team Assembly Line Machine Operator Name Role Phone Jamal Hernandez MD Primary Care Provider [phone] Encounter Details Date Type Department Care Team (Late st Contact Info) Description 08/29/2016 Documentation [facility] [place] [address] [place], [place] 8708[address] Family Medicine, Physician [address] [place] [address] Social History Tobacco Use Types Packs/Day Years [...] filedocumented in this encounter Care Teams Team Assembly Line Machine Operator Relationship Specialty Start Date End Date Jamal Hernandez MD [address] [place] [address] [place] [address] PCP - General 10/25/16 06/23/22 documented as of this encounter
--- OUTSIDE RECORDS SUMMARY | 2025-01-24 15:40 | XMS_ITS | Encounter Summary ---
Author Organization [facility] Address [address] [place] [address] Phone Care Team Providers Care Snack Bar Cashier Name Role Phone Jamal Hernandez MD Primary Care Provider [phone] Encounter Details Date Type Department Care Team (Late st Contact Info) Description 10/31/2016 Conversion Encounter [facility] [place] [address] [place] [address] Social History Tobacco Use Types Packs/Day Years [...] on filedocumented in this encounter Care Teams Snack Bar Cashier Relationship Specialty Start Date End Date Jamal Hernandez MD [address] [place] [address] PCP - General 10/25/16 06/23/22 documented as of this encounter
--- OUTSIDE RECORDS SUMMARY | 2025-01-24 15:40 | XMS_ITS | Encounter Summary ---
Author Organization [facility] Address [address] [place] [address] Phone Care Team Providers Care Upsetter Name Role Phone Jamal Hernandez MD Primary Care Provider [phone] Encounter Details Date Type Department Care Team (Late st Contact Info) Description 08/29/2016 Documentation [facility] [place] Family [place] [address] [place], [place] [phone] Family Medicine, Physician [address] [place] [address] Social History Tobacco Use Types Packs/Day Years [...] on filedocumented in this encounter Care Teams Upsetter Relationship Specialty Start Date End Date Jamal Hernandez MD [address] [place] [address] [place] [address] PCP - General 10/25/16 06/23/22 documented as of this encounter
== END 2025-01-24 16:15 | disposition home or self-care (01) ==
LOC: HO.HWS 13:32
PROVIDERS: PCP Physician Assistant; Visit Provider Advanced Practice Midwife
DX: Z01.419 Encounter for gynecological examination (general) (routine) without abnormal findings (principal); Z12.4 Encounter for screening for malignant neoplasm of cervix; Z11.3 Encounter for screening for infections with a predominantly sexual mode of transmission; N92.0 Excessive and frequent menstruation with regular cycle
CPT/HCPCS: 99395; 99459

== ENCOUNTER 2025-01-24 13:31 | Outpatient (REF) | payer OTHER, SELFPAY ==
[2025-01-24 18:04] LABS: Bacterial Vaginosis PCR POSITIVE (Negative); Candida Group PCR NOT DETECTED (Not Detect); Candida glab krusei PCR NOT DETECTED (Not Detect); Trichomonas vaginalis PCR NOT DETECTED (Not Detect)
[2025-01-24 18:24] LABS: CT PCR NOT DETECTED (Not Detect.); NG PCR NOT DETECTED (Not Detect.)
== END 2025-01-24 13:32 | disposition home or self-care (01) ==
LOC: HO.LNP 13:31
PROVIDERS: PCP Physician Assistant; Visit Provider Advanced Practice Midwife
DX: Z01.419 Encounter for gynecological examination (general) (routine) without abnormal findings (principal); Z20.2 Contact with and (suspected) exposure to infections with a predominantly sexual mode of transmission; N92.0 Excessive and frequent menstruation with regular cycle
CPT/HCPCS: 81515; 87491; 87591; 99395